=== PATIENT | male | born 1955 | race Two or more races ===

== ENCOUNTER 2020-08-21 09:37 | Outpatient (REF) | payer MEDICARE, MEDICAID, SELFPAY | END 2020-08-21 09:38 | disposition home or self-care (01) | LOC: HO.HAP 09:37 | PROVIDERS: Visit Provider Physician Assistant | DX: Z46.1 Encounter for fitting and adjustment of hearing aid (principal) | CPT/HCPCS: 92593; V5266 ==

== ENCOUNTER → 2021-01-09 07:34 | Outpatient (BNVA) | payer MEDICARE, MEDICAID, SELFPAY | PROVIDERS: PCP Internal Medicine; Visit Provider Nurse Practitioner Gerontology | DX: E11.29 Type 2 diabetes mellitus with other diabetic kidney complication (principal); E66.09 Other obesity due to excess calories; E78.5 Hyperlipidemia, unspecified; R80.9 Proteinuria, unspecified; I10 Essential (primary) hypertension; Z71.3 Dietary counseling and surveillance | CPT/HCPCS: Q3014 ==

== ENCOUNTER 2021-03-08 06:44 | Outpatient (REF) | payer MEDICARE, MEDICAID, SELFPAY ==
[2021-03-08 08:15] LABS: Estimated Average Glucose 148 mg/dL; Hemoglobin A1c % 6.8 %
[2021-03-08 08:22] LABS: Alanine Aminotransferase 18 U/L (0-40); Albumin Level 4.2 g/dL (3.5-5.0); Alkaline Phosphatase 82 U/L (39-117); Anion Gap 11 (12-20); Aspartate Amino Transferase 16 U/L (5-37); Bilirubin Total 0.2 mg/dL (0.0-1.0); Blood Urea Nitrogen 20 mg/dL (9-16); Calcium 9.3 mg/dL (8.4-10.2); Carbon Dioxide 28 mmol/L (22-29); Chloride 107 mmol/L (96-108); Cholesterol 126 mg/dL; Estimated Glomerular Filt Rate > 60; Glucose Fasting 102 mg/dL (60-99); HDL Cholesterol 50 mg/dL; LDL Cholesterol Calculated 66 mg/dl; Potassium 4.3 mmol/L (3.3-5.1); Sodium 142 mmol/L (135-145); Total Protein 7.2 g/dL (6.5-8.0); Triglycerides 52 mg/dL
[2021-03-08 09:54] LABS: Creatinine Urine 176.17 mg/dL; Microalbum/Creatinine Ratio Ur 28.3 ug/mg cr
[2021-03-09 05:32] LABS: LDL Cholesterol Direct 60 mg/dL (<100)
[2021-03-13 06:17] LABS: Fructosamine 286 umol/L (205-285)
== END 2021-03-08 06:45 | disposition home or self-care (01) ==
LOC: HO.US 06:44
PROVIDERS: Nurse Practitioner Gerontology; PCP Internal Medicine; Visit Provider Internal Medicine
DX: Z13.6 Encounter for screening for cardiovascular disorders (principal); Z87.891 Personal history of nicotine dependence; E11.29 Type 2 diabetes mellitus with other diabetic kidney complication; E11.22 Type 2 diabetes mellitus with diabetic chronic kidney disease; N18.9 Chronic kidney disease, unspecified
CPT/HCPCS: 36415; 80053; 80061; 82043; 82985; 83036; 83721

== ENCOUNTER → 2021-04-12 07:51 | Outpatient (BNVA) | payer MEDICARE, MEDICAID, SELFPAY | PROVIDERS: PCP Internal Medicine; Visit Provider Nurse Practitioner Gerontology | DX: E11.29 Type 2 diabetes mellitus with other diabetic kidney complication (principal); E11.42 Type 2 diabetes mellitus with diabetic polyneuropathy; E78.00 Pure hypercholesterolemia, unspecified; E66.01 Morbid (severe) obesity due to excess calories; I10 Essential (primary) hypertension; R80.9 Proteinuria, unspecified; Z79.4 Long term (current) use of insulin; Z68.41 Body mass index [BMI] 40.0-44.9, adult | CPT/HCPCS: 82947; 99212 ==

== ENCOUNTER → 2021-05-01 09:38 | Outpatient (BNVA) | payer MEDICARE, MEDICAID, SELFPAY | PROVIDERS: PCP Internal Medicine; Visit Provider Nurse Practitioner Gerontology | DX: E11.29 Type 2 diabetes mellitus with other diabetic kidney complication (principal); E11.42 Type 2 diabetes mellitus with diabetic polyneuropathy; E78.00 Pure hypercholesterolemia, unspecified; E66.01 Morbid (severe) obesity due to excess calories; R80.9 Proteinuria, unspecified; I10 Essential (primary) hypertension; Z68.41 Body mass index [BMI] 40.0-44.9, adult; Z79.4 Long term (current) use of insulin | CPT/HCPCS: 82947; 99212 ==

== ENCOUNTER 2021-06-06 15:27 | Outpatient (REF) | payer MEDICARE, MEDICAID, SELFPAY | END 2021-06-06 15:28 | disposition home or self-care (01) | LOC: HO.HAP 15:27 | PROVIDERS: Visit Provider Internal Medicine | DX: Z13.89 Encounter for screening for other disorder (principal) ==

== ENCOUNTER 2021-06-28 13:49 | Outpatient (REF) | payer MEDICARE, MEDICAID, SELFPAY | END 2021-06-28 13:50 | disposition home or self-care (01) | LOC: HO.HAP 13:49 | PROVIDERS: Visit Provider Internal Medicine | DX: Z46.1 Encounter for fitting and adjustment of hearing aid (principal); H90.3 Sensorineural hearing loss, bilateral | CPT/HCPCS: V5266 ==

== ENCOUNTER 2021-07-16 08:30 | Outpatient (REF) | payer MEDICARE, MEDICAID, SELFPAY ==
--- NOTE | ~2021-07-16 | US_ITS ---
EXAMINATION: US RETROPERITONEAL LIMITED (AORTA) CLINICAL INFORMATION: This is a 66-year-old male with a personal history of nicotine dependence. Evaluate for abdominal aortic aneurysm.. COMPARISON: None TECHNIQUE: Haley-scale, color Doppler and spectral Doppler evaluation of the abdominal aorta. FINDINGS: There is minimal scattered nonobstructive atherosclerotic disease without evidence of abdominal aortic aneurysm. The measurements of the aorta in maximum AP and transverse dimensions respectively are as follows: Proximal: 2.2 x 2.4 cm. Mid: 2.5 x 2.5 cm. Distal: 2.5 x 2.5 cm. PSV: 85 cm/s. The measurements of the common iliac arteries in maximum AP and TRV dimensions are as follows: Right Common Iliac Artery: 1.0 x 1.2 cm. Left Common Iliac Artery: 1.3 x 1.3 cm. US/US abdominal aortic aneurysm IMPRESSION: There is minimal scattered nonobstructive atherosclerotic disease without evidence of abdominal aortic aneurysm.
== END 2021-07-16 08:31 | disposition home or self-care (01) ==
LOC: HO.US 08:30
PROVIDERS: PCP Internal Medicine; Visit Provider Internal Medicine
DX: Z13.6 Encounter for screening for cardiovascular disorders (principal); Z87.891 Personal history of nicotine dependence
CPT/HCPCS: 76706

== ENCOUNTER → 2021-08-02 09:03 | Outpatient (BNVA) | payer MEDICARE, MEDICAID, SELFPAY | PROVIDERS: PCP Internal Medicine; Visit Provider Nurse Practitioner Gerontology | DX: E11.29 Type 2 diabetes mellitus with other diabetic kidney complication (principal); E11.42 Type 2 diabetes mellitus with diabetic polyneuropathy; E78.00 Pure hypercholesterolemia, unspecified; E66.01 Morbid (severe) obesity due to excess calories; I10 Essential (primary) hypertension; R80.9 Proteinuria, unspecified; Z79.4 Long term (current) use of insulin; Z68.41 Body mass index [BMI] 40.0-44.9, adult | CPT/HCPCS: 82947; 99212 ==

== ENCOUNTER 2021-10-20 14:26 | Emergency (ER) | payer MEDICARE, MEDICAID, SELFPAY | END 2021-10-20 20:31 | disposition left against medical advice (07) | LOC: HO.ED 20:27 | PROVIDERS: Emergency Provider Emergency Medicine; PCP Internal Medicine | DX: M25.472 Effusion, left ankle (principal) ==

== ENCOUNTER → 2021-11-27 07:43 | Outpatient (BNVA) | payer MEDICARE, MEDICAID, SELFPAY | PROVIDERS: PCP Internal Medicine; Visit Provider Nurse Practitioner Gerontology | DX: E11.29 Type 2 diabetes mellitus with other diabetic kidney complication (principal); E11.42 Type 2 diabetes mellitus with diabetic polyneuropathy; E78.00 Pure hypercholesterolemia, unspecified; E66.01 Morbid (severe) obesity due to excess calories; I10 Essential (primary) hypertension; R80.9 Proteinuria, unspecified; Z79.4 Long term (current) use of insulin; Z68.41 Body mass index [BMI] 40.0-44.9, adult | CPT/HCPCS: 82947; 83036; 99212 ==

== ENCOUNTER 2021-12-02 07:50 | Outpatient (REF) | payer MEDICARE, MEDICAID, SELFPAY | END 2021-12-02 07:51 | disposition home or self-care (01) | LOC: HO.LAB 07:50 | PROVIDERS: PCP Internal Medicine; Visit Provider Nurse Practitioner Gerontology | DX: Z13.89 Encounter for screening for other disorder (principal) ==

== ENCOUNTER 2021-12-02 08:13 | Outpatient (REF) | payer MEDICARE, MEDICAID, SELFPAY ==
[2021-12-02 10:47] LABS: Alanine Aminotransferase 22 U/L (0-40); Albumin Level 3.9 g/dL (3.5-5.0); Alkaline Phosphatase 106 U/L (39-117); Anion Gap 13 (12-20); Aspartate Amino Transferase 24 U/L (5-37); Bilirubin Total 0.6 mg/dL (0.0-1.0); Blood Urea Nitrogen 17 mg/dL (9-16); Calcium 9.4 mg/dL (8.4-10.2); Carbon Dioxide 29 mmol/L (22-29); Chloride 102 mmol/L (96-108); Cholesterol 127 mg/dL; Estimated Glomerular Filt Rate > 60; Glucose Fasting 234 mg/dL (60-99); HDL Cholesterol 44 mg/dL; LDL Cholesterol Calculated 58 mg/dl; Potassium 4.3 mmol/L (3.3-5.1); Sodium 140 mmol/L (135-145); Total Protein 7.2 g/dL (6.5-8.0); Triglycerides 126 mg/dL
[2021-12-02 11:17] LABS: Creatinine Urine 110.78 mg/dL; Microalbum/Creatinine Ratio Ur 112.8 ug/mg cr
[2021-12-03 17:53] LABS: LDL Cholesterol Direct 63 mg/dL (<100)
== END 2021-12-02 08:14 | disposition home or self-care (01) ==
LOC: HO.10HDL 08:13
PROVIDERS: Visit Provider Nurse Practitioner Gerontology
DX: E11.29 Type 2 diabetes mellitus with other diabetic kidney complication (principal)
CPT/HCPCS: 36415; 80053; 80061; 82043; 83721

== ENCOUNTER 2021-12-11 08:12 | Outpatient (REF) | payer MEDICARE, MEDICAID, SELFPAY ==
--- NOTE | 2021-12-11 09:38 | MHC.AU.HFU ---
Hearing Instrument Follow-Up- Binaural Date of Visit: 12/11/21 Right Ear: Ergonomics Consultant: Oticon Model: Em Pro BTE Serial Number: [id number] Repair Warranty: Loss and Damage Warranty: Battery Size: 13 Dispensed By: [facility] Left Ear: Ergonomics Consultant: Oticon Model: Em Pro BTE Serial Number: [id number] Repair Warranty: Loss and Damage Warranty: Battery Size: 13 Type of Mold: Standard half shell mold Dispensed By: [facility] Follow-Up Summary: Patient arrived as a walk-in, reporting that he is not sure if his right ear is blocked with wax or if his right hearing aid is not working. Otoscopy performed- There is deeply occluding wax in the right canal, as well as blood noted throughout canal. Advised patient to follow-up with his PCP to address the bleeding, as he is diabetic, and to have the remaining cerumen removed. Right hearing aid was inspected. Most of the paint has chipped off the hearing aid. Tubing was partially clogged with wax. Mold cleaned and tubing replaced. Microphones cleaned. Excessive debris removed from battery compartment. Hearing aid is working after maintenance. Recommendations: Follow-up with PCP to address bleeding in right ear and deeply impacted cerumen. Advised patient that he is eligible for new hearing aids. He will need an order for an updated audiological evaluation prior to discussing new hearing instruments. Dispensed 42 batteries. Diagnosis Code(s): Primary Diagnosis: H90.3 Bilateral Sensorineural Hearing Loss Signature: Provider: Joanna Rivera, CCC-A
== END 2021-12-11 08:13 | disposition home or self-care (01) ==
LOC: HO.HAP 08:12
PROVIDERS: Visit Provider Internal Medicine
DX: Z46.1 Encounter for fitting and adjustment of hearing aid (principal); H90.3 Sensorineural hearing loss, bilateral
CPT/HCPCS: 92592; V5266

== ENCOUNTER 2022-01-09 08:29 | Outpatient (REF) | payer MEDICARE, MEDICAID, SELFPAY ==
--- NOTE | 2022-01-09 13:42 | MHC.AU.AHA ---
Adult Audiological Evaluation Date of Visit: 01/09/22 Nutritional Services Cook Used: Montenegrin- By Phone Reason for Appointment: Audiological evaluation to determine if there has been a change in hearing sensitivity. Mr. Hess has a known bilateral sensorineural hearing loss and uses hearing aids binaurally. His current hearing aids are 8 years old and are no longer working well. He is interested in pursuing new hearing aids. He denies any changes to his medical history. Previous Hearing Test Results: [facility] of [facility], 04/19/2014- Moderate to severe SNHL in the right ear. Mild to moderately-severe SNHL in the left ear. Ear History: History of Ear Wax Buildup: Both Ears Bothersome Tinnitus/Ringing/Noises in Ears: Both Ears Medical History: Medical History: Diabetes Medical History: Former smoker, Proteinuria, Pure hypercholesterolemia Allergies: Enalapril, lisinopril, anethestics - amide type Medication List: amlodipine, atorvastatin, dulaglutide (Trulicity), insulin glargine (Lantus U-100 Insulin), losartan-hydrochlorothiazide, metformin ER, paroxetine HCl (Paxil) Hearing Instrument History- Right Ear: Mail Processing Clerk: Oticon Model: Em Pro BTE Serial Number: [id number] Battery Size: 13 Repair Warranty: Loss and Damage Warranty: Dispensed By: [facility] Date of Fittin Hearing Instrument History- Left Ear: Mail Processing Clerk: Oticon Model: Me Pro BTE Serial Number: [id number] Battery Size: 13 Warranty: Loss and Damage Warranty: Dispensed By: [facility] Date of Fittin Otoscopy: Right Ear: Deep, occluding cerumen removed without incident with suction. Left Ear: Unremarkable Hearing Evaluation: Transducer(s) Used: Insert Earphones, Bone Conduction Method: Conventional Audiometry Stimuli Used: Pure Tones Right Ear: Description of Hearing: Moderate sloping to severe sensorineural hearing loss from 250-8000 Hz. Left Ear: Description of Hearing: Moderate sloping to severe sensorineural hearing loss from 250-8000 Hz. Speech Recognition Threshold (SRT): Method Used: Recorded Lists Stimuli Used: Montenegrin Trisyllable Words Right Ear: 60 dBHL Left Ear: 50 dBHL Word Discrimination: Method: Recorded Lists Word Lists Used: Lista Bisil?bica (Montenegrin) Right Ear: 96% at 85 dBHL Left Ear: 100% at 80 dBHL Comparison: Compared to the most recent evaluation: Hearing is stable. Recommendations: Audiological re-evaluation in one year. Based on the age and condition of his current hearing aids, updated binaural amplification is recommended. Discussed current hearing aid styles and technologies. He is interested in pursuing rechargeable [id number]-cj-spk-ear style hearing aids. Medical clearance from a physician is required before fitting. Hearing aids will be ordered once medical clearance is received. Diagnosis: Primary Diagnosis: H90.3 Bilateral Sensorineural Hearing Loss Secondary Diagnosis: H61.21 Impacted Cerumen, Right Ear Services Performed: Comprehensive Audiological Evaluation (CPT 34857) Signature: Provider: Joanna Pang, CCC-A
--- NOTE | 2022-01-09 13:50 | MHC.AU.HAS ---
Hearing Aid Evaluation Date of Visit: 01/09/22 Solar System Installer Used: Uzbek- By Phone Historical Information: Description of Hearing: Moderate to severe sensorineural hearing loss bilaterally. Current personal amplification information, if applicable: 2013 Oticon Em Pro BTEs Summary: Based on Mr. Hess's hearing loss, his shared listening needs, and the age and condition of his current hearing aids, updated binaural amplification is recommended. Discussed current hearing aid styles and technologies. He is interested in rechargeable GIRISH style hearing aids. Going to remain with Oticon as he has been happy with his current hearing aids. Hearing Aid Prescription: Based on the individual?s shared listening needs, communication environments, dexterity, desire for connectivity, and personal preferences, the following prescription for amplification has been made: Right ear: Daylight Driller: Oticon Model: More 2 miniRITE-R Battery Size: Rechargeable Color: Silver - 44 Integration Manager: Size 2 85 gain Type of Mold: Custom GIRISH molds Left ear: Left ear prescription to be same as Right Hearing Aid above: Daylight Driller: Oticon Model: More 2 miniRITE-R Battery Size: Rechargeable Color: Silver - 44 Integration Manager: Size 2 85 gain Type of Mold: Custom GIRISH molds Plan of Care: Earmold Impressions Taken. Medical Clearance to be requested from PCP/ENT. Hearing aids will be ordered once MD clearance is received. Hearing Instrument Fitting to be scheduled when materials arrive. Primary Diagnosis: H90.3 Bilateral Sensorineural Hearing Loss Secondary Diagnosis: H61.21 Impacted Cerumen, Right Ear Signature: Provider: Joanna Pang, CCC-A
--- NOTE | 2022-01-13 13:51 | MHC.AU.MED ---
Medical Clearance for Hearing Instrumentation Date: 01/13/22 Patient Name: Nathen Hess Date of : 1955 Referring Provider: Radha Thakur MD We have seen your patient on 01/09/22 and have determined that they are a candidate for amplification (See accompanying report). Specifically, they would benefit from: Hearing aid use in both ears There is a statute that addresses Medical Evaluation Requirements prior to fitting a patient with a hearing aid. According to [place] statute 265 CMR:6.03(1), (a) General. Except as provided in 265 CMR 6.03(1)(b), a shearing supervisor shall not sell a hearing aid unless the prospective user has presented to the shearing supervisor a written statement signed by a licensed physician that states that the patient's hearing loss has been medically evaluated and the patient may be considered a candidate for a hearing aid. The medical evaluation must have taken place within the preceding six months. Please note: Due to the [place] Statute referenced above, we cannot accept a signature other than that of a licensed physician. RUBBER CHEMIST and PA signatures cannot be accepted. I am in agreement with the above recommendation. There is no medical contraindication for hearing instrumentation. Physician Signature Date Physician Name (Printed)
== END 2022-01-09 08:30 | disposition home or self-care (01) ==
LOC: HO.SH 08:29
PROVIDERS: Visit Provider Internal Medicine
DX: Z46.1 Encounter for fitting and adjustment of hearing aid (principal); Z01.118 Encounter for examination of ears and hearing with other abnormal findings; H61.21 Impacted cerumen, right ear
CPT/HCPCS: 92557; 92591; 92593; V5275

== ENCOUNTER 2022-02-24 09:15 | Outpatient (REF) | payer MEDICARE, MEDICAID, SELFPAY | END 2022-02-24 09:16 | disposition home or self-care (01) | LOC: HO.HAP 09:15 | PROVIDERS: Visit Provider Internal Medicine | DX: Z46.1 Encounter for fitting and adjustment of hearing aid (principal); H90.3 Sensorineural hearing loss, bilateral; H61.21 Impacted cerumen, right ear | CPT/HCPCS: V5011; V5020; V5160; V5261; V5264 ==

== ENCOUNTER 2023-04-23 07:39 | Outpatient (REF) | payer MEDICARE, MEDICAID, SELFPAY ==
--- NOTE | ~2023-04-23 | MR_ITS ---
EXAMINATION: MR BRAIN WITHOUT CONTRAST CLINICAL INFORMATION: Disorientation COMPARISON: None TECHNIQUE: Multiplanar multisequence MR imaging of the brain was obtained without intravenous contrast. FINDINGS: There is no acute infarct on diffusion-weighted imaging. There is no intracranial hemorrhage on iron-sensitive imaging. No extra-axial collection or mass effect/herniation. Scattered periventricular and deep white matter and patchy brainstem T2 FLAIR hyperintensities consistent with mild underlying microangiopathy. No hydrocephalus. The ventricles are normal in morphology and size. The major flow voids at the skull base are preserved. The midline structures are normal. The cerebellar tonsils are normally positioned. The craniocervical junction is normal. Marrow signal is within normal limits. The visualized soft tissues are without significant abnormality. No signal abnormality within the paranasal sinuses or within the mastoid air cells. MR/MR head/brain wo con IMPRESSION: Mild chronic white matter microangiopathy. Otherwise unremarkable noncontrast MRI of the brain.
== END 2023-04-23 07:40 | disposition home or self-care (01) ==
LOC: HO.MRI 07:39
PROVIDERS: PCP Internal Medicine; Visit Provider Internal Medicine
DX: R41.0 Disorientation, unspecified (principal)
CPT/HCPCS: 70551

== ENCOUNTER 2023-07-13 08:25 | Outpatient (AMB) | payer MEDICARE, MEDICAID, SELFPAY ==
[2023-07-13 08:45] VITALS: BP 136/70; BMI 39.7
--- NOTE | 2023-07-13 08:45 | A.OFFPC_ITS ---
Vital Signs 07/13/23 08:45 Height 5 ft 3 in Weight 224 lb BMI 39.7 BP 136/70 Blood Pressure Location Lt brachial Position Sitting Intake Visit Reasons: dm Intake Note: Patient here for a follow up DM, memory loss External Relations Manager Required: No Accompanied by: Self / Same As Patient Allergies enalapril [ENALAPRIL] Allergy (Unknown, Verified 07/13/23 08:57) UNKNOWN lisinopril Allergy (Unknown, Verified 07/13/23 08:57) UNKNOWN Anesthetics - Amide Type - Select A Adverse Reaction (Severe, Verified 07/13/23 08:57) loss of consciousness Medication List - Last Reconciled 07/13/23 by Radha Thakur MD amlodipine 10 mg PO DAILY atorvastatin 40 mg PO DAILY blood sugar diagnostic (FreeStyle Lite Strips) As directed three times a day blood-glucose meter (FreeStyle Lite Meter kit) As directed 3x/day [Diabetic shoes As directed] insulin glargine (Lantus U-100 Insulin) 8 units (0.08 mL) subcut DAILY 90 days insulin syringe-needle U-100 (BD Insulin Syringe Ultra-Fine) Use 1 syringe needle once a day lancets As directed lancets (FreeStyle Lancets) Three times a day losartan-hydrochlorothiazide 100-12.5 mg 1 tab PO DAILY 90 days metformin ER 1,000 mg (2 x 500 mg) PO BID paroxetine HCl (Paxil) 30 mg PO DAILY 90 days Tobacco use date assessed: 03/05/23 Fall risk assessment: No Falls in past year Last assessed Fall Risk: 07/13/23 Dental Screening Dental Screen Date: 07/13/23 Did you have a dental visit in the last 12 months?: No Did you have a dental problem in the last 6 months where you did not have access to dental care?: No Was dental information given to patient?: Patient has dentist HPI HPI Comments History of Present Illness Details This is a 68-year-old male with diabetes mellitus type 2 on long-term current use of insulin, hypertension, hyperlipidemia, mild recurrent major depression and dementia that came today for follow-up on his conditions. He admits having some memory loss but he said it got better on its own. A1c elevated because is not taking metformin twice a day. Blood pressure stable although he does not seem to be taking his medications correctly. Paroxetine will be resend for depression. He is awake, alert and oriented to person and place but not to time. Will be referred to neurology. No chest pain or shor tness of breath. Has dyslipidemia and lipid panel will be order. His LDL goal should be less than 70. [facility] Medical History (Updated 07/13/23 @ 09:04 by Radha Thakur MD) Hearing loss Encounter for Medicare annual wellness exam Mild recurrent major depression Morbid obesity with BMI of 40.0-44.9, adult Type 2 diabetes mellitus with diabetic polyneuropathy Former smoker Lumbar radiculopathy Proteinuria Retinopathy Hyperlipidemia Obesity due to excess calories Depression with anxiety Pure hypercholesterolemia Type 2 diabetes mellitus with other diabetic kidney complication Surgical History History of surgery History of cataract surgery Family History Father No problems noted. Mother No problems noted. Social History Household Members: None Housing: Apartment Alcohol intake: former Patient Tobacco Use Status: Former Tobacco user Years Smoked: 20 years e-Cigarette/Vaping Use: Never Used Second Hand Smoke Exposure: No service: No Current occupational status: disabled Cognitive needs: No Hearing needs: Yes Vision needs: Yes Questionnaire Thrive Questionnaire Date Thrive assessed: 03/05/23 ROBERT-7 AMB Questionnaire ROBERT-7 Date ROBERT - 7 assessed: 03/05/23 Source: Developed by Drs. Skinny Wallace, Columba Garcia, Elvis Canales and colleagues, with an educational evaristo from [employer] by [employer]. Review of Systems Const All systems reviewed & are unremarkable except as noted in HPI and below Eyes Reports no additional complaints, Denies change in vision and Denies other visual disturbances Card Denies chest pain at rest, Denies chest pain with activity, Denies edema, Denies irregular heart rhythm, Denies claudication, Denies dyspnea, Denies dyspnea on exertion, Denies orthopnea, Denies paroxysmal nocturnal dyspnea and Denies slow heart rate Resp Denies cough, Denies dyspnea and Denies dyspnea on exertion GI Denies abdominal pain, Denies change in bowel habits, Denies excessive flatus, Denies nausea and Denies vomiting Denies urinary hesitancy, Denies urinary incontinence and Denies urinary urgency Musc Denies abnormal gait, Denies atrophy, Denies deformity and Denies limited range of motion Skin/Breast Denies bleeding lesions, Denies changing lesions and Denies rash Neuro Denies abnormal gait, Denies lack of coordination and Reports memory loss Psych Reports memory loss Physical exam (Primary Care) Vital Signs: Last Vital Signs BP 136/70 07/13/23 08:45 BMI result Body Mass Index 39.7 Tobacco/Smoking Status: Tobacco use Status Tobacco use date assessed 03/05/23 07/13/23 08:48 Patient Tobacco Use Status Former Tobacco user 07/13/23 08:48 e-Cigarette/Vaping Use Never Used 07/13/23 08:48 Thrive Assessment: Date of Thrive Assessment Date Thrive assessed 03/05/23 07/13/23 08:48 Const Orientation/consciousness: oriented to person and oriented to place Eyes General: appearance normal, both eyes and all related structures Eyelids: Yes eyelids normal Conjunctivae: conjunctivae normal Neck Neck: Yes normal visual inspection and Yes supple Resp Effort & Inspection: normal respiratory effort Auscultation: clear to auscultation bilaterally Cardio Jugular venous distension: no JVD Rate: regular rate Rhythm: regular rhythm Heart sounds: S1 normal heart sound present and S2 normal heart sound present Neuro General: oriented to person and oriented to place Extrem General: Yes full ROM Results AMB Hemoglobin A1c AMB Hemoglobin A1c 8.0 % Last Edit by PÉREZ Torres on 07/13/23 09:0 1 Results Reviewed Results Reviewed: Laboratory Last Values Hgb A1c (Clinic) 8.0 % (4.0-6.0) H 07/13/23 08:52 Assessment and Plan Assessment & Plan (1) Diabetes mellitus, with long-term current use of insulin: Code(s): E11.9 - Type 2 diabetes mellitus without complications; Z79.4 - senior living (current) use of insulin Plan: Start metformin twice a day. Continue insulin. A1c goal is equal or less than 7%. (2) Mild recurrent major depression: Code(s): F33.0 - Major depressive disorder, recurrent, mild Plan: Restart paroxetine. (3) Dementia: Code(s): F03.90 - Unspecified dementia, unspecified severity, without behavioral disturbance, psychotic disturbance, mood disturbance, and anxiety Plan: Labs ordered. Referred to neurology. (4) HTN (hypertension): Code(s): I10 - Essential (primary) hypertension Qualifiers: Hypertension type: essential hypertension Qualified Code(s): I10 - Essential (primary) hypertension Plan: Continue amlodipine and losartan-hydrochlorothiazide. Blood pressure goal is equal or less than 130/80. (5) Hyperlipidemia: Code(s): E78.5 - Hyperlipidemia, unspecified Qualifiers: Hyperlipidemia type: pure hypercholesterolemia Qualified Code(s): E78.00 - Pure hypercholesterolemia, unspecified Plan: Continue statins. LDL goal should be less than 70 Orders: Orders Lipid Panel Today E78.5 - Hyperlipidemia, unspecified Vitamin D 25-OH Total Today E55.9 - Vitamin D deficiency, unspecified Comprehensive [place]. Panel Fast Today F03.90 - Unspecified dementia, unspecified severity, without behavioral disturbance, psychotic disturbance, mood disturbance, and anxiety Thyroid Stimulating Hormone Today F03.90 - Unspecified dementia, unspecified severity, without behavioral disturbance, psychotic disturbance, mood disturbance, and anxiety Complete Blood Count Auto Diff Today D64.9 - Anemia, unspecified, F03.90 - Unspecified dementia, unspecified severity, without behavioral disturbance, psychotic disturbance, mood disturbance, and anxiety AMB Hemoglobin A1c Today E11.9 - Type 2 diabetes mellitus without complications, Z79.4 - oncology radiation physician (current) use of insulin Microalbumin, Random (w Creat) Today E11.9 - Type 2 diabetes mellitus without complications Syphilis Screen Today F03.90 - Unspecified dementia, unspecified severity, without behavioral disturbance, psychotic disturbance, mood disturbance, and anxiety Referrals Neurology Referral F03.90 - Unspecified dementia, unspecified severity, without behavioral disturbance, psychotic disturbance, mood disturbance, and anxiety Medications: New metformin 1,000 mg PO BID 90 days 180 tabs 1RF Refilled insulin syringe-needle U-100 (BD Insulin Syringe Ultra-Fine) Use 1 syringe needle once a day 100 ea 11RF paroxetine HCl (Paxil) 30 mg PO DAILY 90 days 90 tabs 1RF F41.1 - Generalized anxiety disorder amlodipine 10 mg PO DAILY 90 tabs 1RF E11.42 - Type 2 diabetes mellitus with diabetic polyneuropathy, Z79.4 - oncology radiation physician (current) use of insulin atorvastatin 40 mg PO DAILY 90 caps 1RF E11.42 - Type 2 diabetes mellitus with diabetic polyneuropathy, Z79.4 - senior living (current) use of insulin insulin glargine (Lantus U-100 Insulin) 8 units (0.08 mL) subcut DAILY 90 days 7.2 mL 3RF E11.42 - Type 2 diabetes mellitus with diabetic polyneuropathy, Z79.4 - senior living (current) use of insulin losartan-hydrochlorothiazide 100-12.5 mg 1 tab PO DAILY 90 days 90 caps 1RF Discontinued metformin ER Discontinued Reason: Patient Completed Course 1,000 mg (2 x 500 mg) PO BID 120 tabs 6RF Coding Level of Care Code Est Pt Level 4 (70847) Diagnoses Diabetes mellitus, with long-term current use of insulin E11.9; Z79.4 Mild recurrent major depression F33.0 Dementia F03.90 Essential hypertension I10 Hypertension type: essential hypertension Pure hypercholesterolemia E78.00 Hyperlipidemia type: pure hypercholesterolemia Time Spent (min) 24
== END 2023-07-13 09:30 | disposition home or self-care (01) ==
PROVIDERS: PCP Internal Medicine; Visit Provider Internal Medicine
DX: E11.9 Type 2 diabetes mellitus without complications (principal); Z79.4 Long term (current) use of insulin; F33.0 Major depressive disorder, recurrent, mild; F03.90 Unspecified dementia, unspecified severity, without behavioral disturbance, psychotic disturbance, mood disturbance, and anxiety; I10 Essential (primary) hypertension; E78.00 Pure hypercholesterolemia, unspecified
CPT/HCPCS: 83036; 99214

== ENCOUNTER 2023-11-16 07:56 | Outpatient (AMB) | payer MEDICARE, MEDICAID, SELFPAY ==
--- NOTE | 2023-11-16 08:04 | A.OFFPC_ITS ---
Vital Signs 11/16/23 08:17 Height 5 ft 3 in Weight 223 lb BMI 39.5 BP 132/68 Blood Pressure Location Lt brachial Position Sitting Intake Visit Reasons: dm Intake Note: Patient here for a follow up DM Welding Inspector Required: No Accompanied by: Self / Same As Patient Allergies enalapril [ENALAPRIL] Allergy (Unknown, Verified 11/16/23 08:39) UNKNOWN lisinopril Allergy (Unknown, Verified 11/16/23 08:39) UNKNOWN Anesthetics - Amide Type - Select A Adverse Reaction (Severe, Verified 11/16/23 08:39) loss of consciousness Medication List - Last Reconciled 11/16/23 by Radha Thakur MD amlodipine 10 mg PO DAILY atorvastatin 40 mg PO DAILY blood sugar diagnostic (FreeStyle Lite Strips) As directed three times a day blood-glucose meter (FreeStyle Lite Meter kit) As directed 3x/day [Diabetic shoes As directed] insulin glargine (Lantus U-100 Insulin) 8 units (0.08 mL) subcut DAILY 90 days insulin syringe-needle U-100 (BD Insulin Syringe Ultra-Fine) Use 1 syringe needle once a day lancets (FreeStyle Lancets) Three times a day lancets As directed losartan-hydrochlorothiazide 100-12.5 mg 1 tab PO DAILY 90 days metformin 1,000 mg PO BID 90 days paroxetine HCl (Paxil) 30 mg PO DAILY 90 days Tobacco use date assessed: 11/16/23 Fall risk assessment: No Falls in past year Last assessed Fall Risk: 11/16/23 Dental Screening Dental Screen Date: 11/16/23 Did you have a dental visit in the last 12 months?: No Did you have a dental problem in the last 6 months where you did not have access to dental care?: No Was dental information given to patient?: Patient has dentist HPI HPI Comments History of Present Illness Details This is a 68-year-old male with diabetes mellitus type 2 on long-term current use of insulin, hypertension, hyperlipidemia, mild major depression and dementia that comes accompanied by son for follow-up on his conditions. A1c elevated and he has been out of his medications for over 3 weeks. Blood pressure stable. Lipid panel will be order and his LDL goal should be less than 70. Depression stable with paroxetine. Has dementia and is awake, alert and oriented to person and place but not to time. He is license [place] suspended due to dementia. I will start him on donepezil and refer him to Neurology. Son is aware of this. [facility] Medical History (Updated 11/16/23 @ 10:02 by Radha Thakur MD) Hearing loss Encounter for Medicare annual wellness exam Mild recurrent major depression Morbid obesity with BMI of 40.0-44.9, adult Type 2 diabetes mellitus with diabetic polyneuropathy Former smoker Lumbar radiculopathy Proteinuria Retinopathy Hyperlipidemia Obesity due to excess calories Depression with anxiety Pure hypercholesterolemia Type 2 diabetes mellitus with other diabetic kidney complication Surgical History History of surgery History of cataract surgery Family History Father No problems noted. Mother No problems noted. Social History Household Members: None Housing: Apartment Alcohol intake: former Patient Tobacco Use Status: Former Tobacco user Years Smoked: 20 years e-Cigarette/Vaping Use: Never Used Second Hand Smoke Exposure: No service: No Current occupational status: disabled Cognitive needs: No Hearing needs: Yes Vision needs: Yes Questionnaire PHQ-9 Over the last 2 weeks, how often have you been bothered by any of the following problems? 1. Little interest or pleasure in doing things: not at all 2. Feeling down, depressed, or hopeless: not at all 3. Trouble falling or staying asleep, or sleeping too much: not at all 4. Feeling tired or having little energy: not at all 5. Poor appetite or overeating: not at all 6. Feeling bad about yourself - or that you are a failure or have let yourself or your family down: not at all 7. Trouble concentrating on things, such as reading the newspaper or watching television: not at all 8. Moving or speaking so slowly that other people could have noticed. Or the opposite - being so fidgety or restless that you have been moving around a lot more than usual: not at all 9. Thoughts that you would be better off or of hurting yourself in some way: not at all Total score: 0 Depression Screening Interpretation: Negative Depression Screening Done: Yes [id number] - PHQ-9 Billing: Yes Source: Developed by Drs. Skinny Wallace, Columba Garcia, Elvis Canales and colleagues, with an educational evaristo from [employer]. Thrive Questionnaire Date Thrive assessed: 11/16/23 I am a: Patient What is your living situation today?: I have a steady place to live Within the past 12 months, did the food you bought not last and you didn't have the money to get more?: Never true Within the past 12 months, did you worry whether your food would run out before you got money to buy more?: Never true Do you have trouble paying for medicines?: No Do you have trouble getting transportation to medical appointments?: No Do you have trouble paying your heating and electricity bill?: No Do you have trouble taking care of your child, family member or friend?: No Do you have trouble with day-to-day activities such as bathing, preparing meals, shopping, managing finances, etc.?: No Are you currently unemployed and looking for a job?: No Are you interested in more education?: No Please select the resources that you would like help with: None AUDIT C Alcohol Use Questionnaire (AUDIT-C) 1. How often do you have a drink containing alcohol?: Never Total Score: 0 ROBERT-7 AMB Questionnaire ROBERT-7 Date ROBERT - 7 assessed: 11/16/23 Feeling nervous, anxious, or on edge: 0 = Not at all Not being able to stop or control worryin = Not at all Worrying too much about different things: 0 = Not at all Trouble relaxin = Not at all Being so restless that it is hard to sit still: 0 = Not at all Becoming easily annoyed or irritable: 0 = Not at all Feeling afraid as if something awful might happen: 0 = Not at all Total ROBERT-7 score (0-4 normal; 5-9 mild; 10-14 moderate; 15-21 severe): 0 Source: Developed by Drs. Skinny Wallace, Columba Garcia, Elvis Canales and colleagues, with an educational evaristo from [employer]. ROBERT-7 Assessment Billing ROBERT-7 Assessment Tool: ROBERT-7 Assessment 60525 Review of Systems Const All systems reviewed & are unremarkable except as noted in HPI and below Eyes Reports no additional complaints, Denies change in vision and Denies other visual disturbances Card Denies chest pain at rest, Denies chest pain with activity, Denies edema, Denies irregular heart rhythm, Denies claudication, Denies dyspnea, Denies dyspnea on exertion, Denies orthopnea, Denies paroxysmal nocturnal dyspnea and Denies slow heart rate Resp Denies cough, Denies dyspnea and Denies dyspnea on exertion GI Denies abdominal pain, Denies change in bowel habits, Denies excessive flatus, Denies nausea and Denies vomiting Denies urinary hesitancy, Denies urinary incontinence and Denies urinary urgency Musc Denies atrophy, Denies deformity and Denies limited range of motion Neuro Reports memory loss Psych Reports memory loss Physical exam (Primary Care) Vital Signs: Last Vital Signs BP 132/68 11/16/23 08:17 BMI result Body Mass Index 39.5 Tobacco/Smoking Status: Tobacco use Status Tobacco use date assessed 11/16/23 11/16/23 08:22 Patient Tobacco Use Status Former Tobacco user 11/16/23 08:05 e-Cigarette/Vaping Use Never Used 11/16/23 08:05 PHQ-9: PHQ-9 Score PHQ-9: Total score 0 11/16/23 08:56 Depression Screening Interpretation: Negative Thrive Assessment: Date of Thrive Assessment Date Thrive assessed 11/16/23 11/16/23 08:23 Const Orientation/consciousness: oriented to person and oriented to place Eyes General: appearance normal, both eyes and all related structures Eyelids: Yes eyelids normal Conjunctivae: conjunctivae normal Neck Neck: Yes normal visual inspection and Yes supple Resp Effort & Inspection: normal respiratory effort Auscultation: clear to auscultation bilaterally Cardio Jugular venous distension: no JVD Rate: regular rate Rhythm: regular rhythm Heart sounds: S1 normal heart sound present and S2 normal heart sound present Neuro General: oriented to person, oriented to place and no focal motor deficits Extrem General: Yes full ROM Psych Appearance: grossly normal Office Procedures Flu Questionnaire Does the patient have a severe egg allergy?: No Results AMB Hemoglobin A1c AMB Hemoglobin A1c 9.2 % Last Edit by PÉREZ Torres on 11/16/23 08:2 5 Immunizations flu vacc [id number] 6mos up(PF) 60 mcg(15 mcgx4)/0.5 mL IM syringe Performing Provider: Radha Thakur MD [facility] [place] [facility] Documented (not given) by: PÉREZ Torres on 11/16/23 08:56 Reason Not Given: Patient Refused Results Reviewed Results Reviewed: Laboratory Last Values Hgb A1c (Clinic) 9.2 % (4.0-6.0) H 11/16/23 08:24 Assessment and Plan Assessment & Plan (1) Mild recurrent major depression: Code(s): F33.0 - Major depressive disorder, recurrent, mild Plan: Continue paroxetine. (2) Dementia: Code(s): F03.90 - Unspecified dementia, unspecified severity, without behavioral disturbance, psychotic disturbance, mood disturbance, and anxiety Qualifiers: Dementia type: Alzheimer's Alzheimer's disease onset: early onset Dementia severity: mild Dementia behavioral or psychological symptom: without behavioral, psychotic, or mood disturbance or anxiety Qualified Code(s): G30.0 - Alzheimer's disease with early onset; F02.A0 - Dementia in other diseases classified elsewhere, mild, without behavioral disturbance, psychotic disturbance, mood disturbance, and anxiety Plan: Start donepezil. Referred to neurology. (3) Type 2 diabetes mellitus, with long-term current use of insulin: Code(s): E11.9 - Type 2 diabetes mellitus without complications; Z79.4 - detention (current) use of insulin Qualifiers: Diabetes mellitus complication status: with hyperglycemia Qualified Code(s): E11.65 - Type 2 diabetes mellitus with hyperglycemia; Z79.4 - parts counterman (current) use of insulin Plan: Restart insulin and metformin. Start Ozempic. A1c goal is equal or less than 7%. (4) HTN (hypertension): Code(s): I10 - Essential (primary) hypertension Qualifiers: Hypertension type: essential hypertension Qualified Code(s): I10 - E ssential (primary) hypertension Plan: Continue amlodipine. Blood pressure goal is equal or less than 130/80. (5) Hyperlipidemia: Code(s): E78.5 - Hyperlipidemia, unspecified Qualifiers: Hyperlipidemia type: pure hypercholesterolemia Qualified Code(s): E78.00 - Pure hypercholesterolemia, unspecified Plan: Continue statins. Repeat lipid panel. LDL goal is less than 70. Orders: Orders Lipid Panel Today E78.5 - Hyperlipidemia, unspecified Comprehensive [place]. Panel Fast Today E11.9 - Type 2 diabetes mellitus without complications, Z79.4 - detention (current) use of insulin Vitamin B12 and Folate Today E53.8 - Deficiency of other specified B group vitamins, R41.0 - Disorientation, unspecified Thyroid Stimulating Hormone Today R41.0 - Disorientation, unspecified Influenza [id number] Immunization Today Z23 - Encounter for immunization AMB Hemoglobin A1c Today E11.42 - Type 2 diabetes mellitus with diabetic polyneuropathy Microalbumin, Random (w Creat) Today E11.9 - Type 2 diabetes mellitus without complications RPR Monitor reflex titer Today R41.0 - Disorientation, unspecified Referrals Neurology Referral F03.90 - Unspecified dementia, unspecified severity, without behavioral disturbance, psychotic disturbance, mood disturbance, and anxiety Medications: New semaglutide (Ozempic) for 4 weeks 0.25 mg (0.368 mL) subcut QWEEK 28 days 1.472 mL 0RF E11.9 - Type 2 diabetes mellitus without complications, Z79.4 - parts counterman (current) use of insulin donepezil 10 mg PO BEDTIME 90 days 90 tabs 1RF F03.90 - Unspecified dementia, unspecified severity, without behavioral disturbance, psychotic disturbance, mood disturbance, and anxiety semaglutide (Ozempic) for 4 weeks 0.25 mg (0.368 mL) subcut QWEEK 28 days 1.472 mL 0RF E11.9 - Type 2 diabetes mellitus without complications, Z79.4 - parts counterman (current) use of insulin Refilled insulin glargine (Lantus U-100 Insulin) 8 units (0.08 mL) subcut DAILY 90 days 7.2 mL 3RF E11.42 - Type 2 diabetes mellitus with diabetic polyneuropathy, Z79.4 - parts counterman (current) use of insulin metformin 1,000 mg PO BID 90 days 180 tabs 1RF atorvastatin 40 mg PO DAILY 90 caps 1RF E11.42 - Type 2 diabetes mellitus with diabetic polyneuropathy, Z79.4 - parts counterman (current) use of insulin amlodipine 10 mg PO DAILY 90 tabs 1RF E11.42 - Type 2 diabetes mellitus with diabetic polyneuropathy, Z79.4 - parts counterman (current) use of insulin insulin syringe-needle U-100 (BD Insulin Syringe Ultra-Fine) Use 1 syringe needle once a day 100 ea 11RF losartan-hydrochlorothiazide 100-12.5 mg 1 tab PO DAILY 90 days 90 caps 1RF paroxetine HCl (Paxil) 30 mg PO DAILY 90 days 90 tabs 1RF F41.1 - Generalized anxiety disorder Coding Level of Care Code Est Pt Level 4 (10993) Diagnoses Mild recurrent major depression F33.0 Mild early onset Alzheimer's dementia without behavioral disturbance, psychotic disturbance, mood disturbance, or anxiety G30.0; F02.A0 Dementia type: Alzheimer's Alzheimer's disease onset: early onset Dementia severity: mild Dementia behavioral or psychological symptom: without behavioral, psychotic, or mood disturbance or anxiety Type 2 diabetes mellitus with hyperglycemia, with long-term current use of insulin E11.65; Z79.4 Diabetes mellitus complication status: with hyperglycemia Essential hypertension I10 Hypertension type: essential hypertension Pure hypercholesterolemia E78.00 Hyperlipidemia type: pure hypercholesterolemia Additional Codes ROBERT-7 Assessment Billing - ROBERT-7 Assessment Tool: ROBERT-7 Assessment [id number] ([id number]) Time Spent (min) 31
[2023-11-16 08:17] VITALS: BP 132/68; BMI 39.5
== END 2023-11-16 08:55 | disposition home or self-care (01) ==
PROVIDERS: PCP Internal Medicine; Visit Provider Internal Medicine
DX: F33.0 Major depressive disorder, recurrent, mild (principal); G30.0 Alzheimer's disease with early onset; E11.65 Type 2 diabetes mellitus with hyperglycemia; F02.A0 Dementia in other diseases classified elsewhere, mild, without behavioral disturbance, psychotic disturbance, mood disturbance, and anxiety; Z79.4 Long term (current) use of insulin; E11.42 Type 2 diabetes mellitus with diabetic polyneuropathy; I10 Essential (primary) hypertension; E78.00 Pure hypercholesterolemia, unspecified; Z23 Encounter for immunization
CPT/HCPCS: 83036; 99214

== ENCOUNTER 2024-02-29 08:22 | Outpatient (AMB) | payer MEDICARE, MEDICAID, SELFPAY ==
--- NOTE | 2024-02-29 08:28 | A.OFFVIS_ITS ---
Vital Signs 02/29/24 08:29 Height 5 ft 3 in Weight 213 lb BMI 37.7 BP 130/72 Blood Pressure Location Rt brachial Position Sitting Pulse 72 Pulse Source Pulse Oximeter Pulse Oximetry (%) 97 Oxygen Delivery Method Room Air Intake Visit Reasons: INP-Unspecified Dementia/ Confirmed w/ address Intake Note: Patient presents for dementia. Allergies enalapril [ENALAPRIL] Allergy (Unknown, Verified 03/17/24 08:24) UNKNOWN lisinopril Allergy (Unknown, Verified 03/17/24 08:24) UNKNOWN Anesthetics - Amide Type - Select A Adverse Reaction (Severe, Verified 03/17/24 08:24) loss of consciousness Medication List - Last Reconciled 02/29/24 by CARLITA Lopez amlodipine 10 mg PO DAILY atorvastatin 40 mg PO DAILY blood sugar diagnostic (FreeStyle Lite Strips) As directed three times a day blood-glucose meter (FreeStyle Lite Meter kit) As directed 3x/day [Diabetic shoes As directed] donepezil 10 mg PO BEDTIME 90 days insulin degludec (Tresiba FlexTouch U-100 insulin) 8 units (0.08 mL) subcut DAILY 30 days insulin syringe-needle U-100 (BD Insulin Syringe Ultra-Fine) Use 1 syringe needle once a day lancets (FreeStyle Lancets) Three times a day lancets As directed losartan-hydrochlorothiazide 100-12.5 mg 1 tab PO DAILY 90 days metformin 1,000 mg PO BID 90 days paroxetine HCl (Paxil) 30 mg PO DAILY 90 days pen needle, diabetic (Comfort EZ Pen Stover) Use 1 pen needle once a day semaglutide (Ozempic) 0.25 mg (0.368 mL) subcut QWEEK 28 days HPI Comments Details: Right-handed 69-yr-old male presents for neurological evaluation of cognitive difficulties. Pt's son reports that pt's family became aware that pt was having cognitive difficulties in Jul 2023. Pt had driven himself home (in [place]) from his son's home in [place], and had become lost- the police were called and pt's license was suspended. Since, family has noticed increased STM forgetfulness, repeating himself, misplacing items. Pt will not recall his son already did grocery shopping. He lives alone in senior housing apartment. Son now helps with finances and grocery shopping. Pt continues to cook, tends to eat dinner early in the day. He has left the stove on. He recently threw out many of his medications. Pt is doing his own laundry w/o issues- there is a communal laundry room. Pt reports normal gestational and early development. He completed 6th grade- stopped at 6th grade d/t this was the common age to stop schooling in his area of [place]. 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 He retired approx 4-5 yrs ago. He used to smoke 2 ppd, quit 22 yrs ago. He did drink heavy, maybe a gallon of vodka a day on the weekends, would often drink to the point of passing out, stopped drinking 24 yrs ago. He states he fell out of a 30 foot tree as a child (before 6th grade) and hit his head- he states that is when he started having memory issues. Pt is 2nd oldest of his siblings- 6 sisters and 7 brothers. Pt is the only one w/ memory issues. Other family memebers drank as well, but not as much as pt. 04/23/23, MR/MR head/brain wo con IMPRESSION: Mild chronic white matter microangiopathy. Otherwise unremarkable noncontrast MRI of the brain. [facility] Medical History (Updated 03/17/24 @ 08:51 by Kurt Thakur MD) Type 2 diabetes mellitus, with long-term current use of insulin Diabetes mellitus, with long-term current use of insulin Hearing loss Encounter for Medicare annual wellness exam Mild recurrent major depression Morbid obesity with BMI of 40.0-44.9, adult Type 2 diabetes mellitus with diabetic polyneuropathy Former smoker Lumbar radiculopathy Proteinuria Retinopathy Hyperlipidemia Obesity due to excess calories Depression with anxiety Pure hypercholesterolemia Type 2 diabetes mellitus with other diabetic kidney complication Surgical History History of surgery History of cataract surgery Family History Father No problems noted. Mother No problems noted. Social History Household Members: None Housing: Apartment Alcohol intake: former Patient Tobacco Use Status: Former Tobacco user Years Smoked: 20 years e-Cigarette/Vaping Use: Never Used Second Hand Smoke Exposure: No service: No Current occupational status: disabled Cognitive needs: No Hearing needs: Yes Vision needs: Yes Physical Exam Vital Signs: Last Vital Signs Pulse 72 02/29/24 08:29 BP 130/72 02/29/24 08:29 Pulse Ox 97 02/29/24 08:29 Oxygen Delivery Method Room Air 02/29/24 08:29 BMI result Body Mass Index 37.7 Const General: cooperative and no acute distress Orientation/consciousness: patient oriented x3 HEENT Head: Yes normocephalic Resp Effort & Inspection: normal respiratory effort and able to speak in complete sentences Neuro General: patient oriented x3, CN's II-XI intact bilaterally and deep tendon reflexes 2+ bilaterally Gait exam (Neuro): Normal gait present Motor exam (neuro): 5/5 motor strength present throughout Psych Appearance: grossly normal Mental Status: mental status grossly normal Speech and movement: Normal speech and movement present Affect: normal affect Attitude: cooperative Thought process: Normal thought process present Thought content: Normal thought content present Insight: Good insight present (Psych) Orientation What is the (year) (season) (date) (day) (month)?: month Where are we (state) (county) (town or city) (hospital) (floor)?: state, county, hospital/clinic and floor Registration Name of 3 unrelated objects clearly and slowly, then ask patient to repeat all 3 of them. (1st repeat determines score. Make sure they can repeat all three): object 1, object 2 and object 3 Language Show patient a wristwatch & ask what it is. Repeat for pencil.: watch and pencil Ask the patient to 'take a piece of paper with their right hand' 'fold paper in half' 'place paper on floor': take paper in right hand, fold paper in half and place paper on floor Print the sentence 'CLOSE YOUR EYES' on a piece. If patient actually closes eyes then score.: followed written direction Score Score: 14 Quality Reporting (2019) Adult ([facility] 138/12/24/68) Smoking risk assessment performed?: Yes Patient Tobacco Use Status: Former Tobacco user Assessment & Plan Assessment & Plan (1) Dementia: Code(s): F03.90 - Unspecified dementia, unspecified severity, without behavioral disturbance, psychotic disturbance, mood disturbance, and anxiety Category: Medical Qualifiers: Dementia type: Alzheimer's Alzheimer's disease onset: early onset Dementia severity: mild Dementia behavioral or psychological symptom: without behavioral, psychotic, or mood disturbance or anxiety Qualified Code(s): G30.0 - Alzheimer's disease with early onset; F02.A0 - Dementia in other diseases classified elsewhere, mild, without behavioral disturbance, psychotic disturbance, mood disturbance, and anxiety (2) Cognitive impairment: Code(s): R41.89 - Other symptoms and signs involving cognitive functions and awareness Category: Medical (3) ZACH (obstructive sleep apnea): Code(s): G47.33 - Obstructive sleep apnea (adult) (pediatric) Category: Medical Plan Reviewed brain MRI w/o, April 2023, Mild chronic white matter microangiopathy- no findings to account for pt's extent of cognitive impairment. Discussed importance of optimizing CV risk factors, including blood sugar control. Pt/son will f/u w/ PCP r/t diabetes tx. We will f/u on sleep apnea tx. Pt will need increased supervision and support. Information shared on local eldercare services. Check labs for common etiologies of cognitive impairment. Check baseline EEG to assess for epileptic or cerebral slowing. Continue Donepazil 10mg qd. Consider adjuncting w/ Memantine upon review of above. Patient seen in collaboration with Dr. Farah. Orders: Orders Rheumatoid Factor 03/02/24 G30.0 - Alzheimer's disease with early onset, F02.A0 - Dementia in other diseases classified elsewhere, mild, without behavioral disturbance, psychotic disturbance, mood disturbance, and anxiety, E11.65 - Type 2 diabetes mellitus with hyperglycemia, Z79.4 - senior living (current) use of insulin, I10 - Essential (primary) hypertension, E78.00 - Pure hypercholesterolemia, unspecified Erythrocyte Sedimentation Rate 03/02/24 G30.0 - Alzheimer's disease with early onset, F02.A0 - Dementia in other diseases classified elsewhere, mild, without behavioral disturbance, psychotic disturbance, mood disturbance, and anxiety, E11.65 - Type 2 diabetes mellitus with hyperglycemia, Z79.4 - outreach consultant ( current) use of insulin, I10 - Essential (primary) hypertension, E78.00 - Pure hypercholesterolemia, unspecified EEG electroencephalogram 02/29/24 R41.89 - Other symptoms and signs involving cognitive functions and awareness KURT Reflex Titer and Pattern 03/02/24 G30.0 - Alzheimer's disease with early onset, F02.A0 - Dementia in other diseases classified elsewhere, mild, without behavioral disturbance, psychotic disturbance, mood disturbance, and anxiety, E11.65 - Type 2 diabetes mellitus with hyperglycemia, Z79.4 - outreach consultant (current) use of insulin, I10 - Essential (primary) hypertension, E78.00 - Pure hypercholesterolemia, unspecified CRP High Sensitivity 03/02/24 G30.0 - Alzheimer's disease with early onset, F02.A0 - Dementia in other diseases classified elsewhere, mild, without behavioral disturbance, psychotic disturbance, mood disturbance, and anxiety, E11.65 - Type 2 diabetes mellitus with hyperglycemia, Z79.4 - senior living (current) use of insulin, I10 - Essential (primary) hypertension, E78.00 - Pure hypercholesterolemia, unspecified HIV Ab/Ag 03/02/24 G30.0 - Alzheimer's disease with early onset, F02.A0 - Dementia in other diseases classified elsewhere, mild, without behavioral disturbance, psychotic disturbance, mood disturbance, and anxiety, E11.65 - Type 2 diabetes mellitus with hyperglycemia, Z79.4 - senior living (current) use of insulin, I10 - Essential (primary) hypertension, E78.00 - Pure hypercholesterolemia, unspecified Coding Level of Care Code New Pt Level 4 (67344) Diagnoses Mild early onset Alzheimer's dementia without behavioral disturbance, psychotic disturbance, mood disturbance, or anxiety G30.0; F02.A0 Dementia type: Alzheimer's Alzheimer's disease onset: early onset Dementia severity: mild Dementia behavioral or psychological symptom: without behavioral, psychotic, or mood disturbance or anxiety Cognitive impairment R41.89 ZACH (obstructive sleep apnea) G47.33
[2024-02-29 08:29] VITALS: BP 130/72; PULSE 72; O2SAT 97; BMI 37.7
== END 2024-02-29 09:59 | disposition home or self-care (01) ==
PROVIDERS: PCP Internal Medicine; Visit Provider Nurse Practitioner Family
DX: G30.0 Alzheimer's disease with early onset (principal); F02.A0 Dementia in other diseases classified elsewhere, mild, without behavioral disturbance, psychotic disturbance, mood disturbance, and anxiety; R41.89 Other symptoms and signs involving cognitive functions and awareness; G47.33 Obstructive sleep apnea (adult) (pediatric)
CPT/HCPCS: 99204; 99214

== ENCOUNTER → 2024-02-29 08:22 | Outpatient (BNVA) | payer MEDICARE, MEDICAID, SELFPAY | PROVIDERS: PCP Internal Medicine; Visit Provider Nurse Practitioner Family | DX: G47.33 Obstructive sleep apnea (adult) (pediatric) (principal); G30.0 Alzheimer's disease with early onset; R41.89 Other symptoms and signs involving cognitive functions and awareness; E11.65 Type 2 diabetes mellitus with hyperglycemia; F02.A0 Dementia in other diseases classified elsewhere, mild, without behavioral disturbance, psychotic disturbance, mood disturbance, and anxiety; I10 Essential (primary) hypertension; E78.00 Pure hypercholesterolemia, unspecified; Z79.4 Long term (current) use of insulin | CPT/HCPCS: 99202 ==

== ENCOUNTER 2024-03-02 06:53 | Outpatient (REF) | payer MEDICARE, MEDICAID, SELFPAY ==
[2024-03-02 07:12] LABS: MANUAL DIFF FLAG NO
[2024-03-02 07:21] LABS: Ammonia 32 umol/L (13-55)
[2024-03-02 07:32] LABS: Basophils Absolute Auto 0.1 X10*3/uL (0.0-0.2); Basophils Percent Auto 0.8 % (0-2); Eosinophils Absolute Auto 0.1 X10*3/uL (0.0-0.4); Eosinophils Percent Auto 1.9 % (0-4); Hematocrit 48.1 % (42.0-52.0); Hemoglobin 16.1 g/dl (14.0-18.0); Imm Gran Abs Auto 0.02 X10*3/uL (0.00-0.03); Imm Gran Pct Auto 0.3 % (0.0-0.4); Lymphocytes Absolute Auto 2.1 X10*3/uL (1.2-4.9); Lymphocytes Percent Auto 32.2 % (20-40); Mean Corpuscular HGB Conc 33.5 g/dl (31.0-36.0); Mean Corpuscular Hemoglobin 30.6 pg (27.0-33.0); Mean Corpuscular Volume 91.4 fL (80.0-98.0); Mean Platelet Volume 11.2 fL (9.4-12.4); Monocytes Absolute Auto 0.8 X10*3/uL (0.1-1.2); Monocytes Percent Auto 12.2 % (2-11); Neutrophils Absolute Auto 3.4 x10*3/uL (2.0-8.3); Neutrophils Percent Auto 52.6 % (45-73); Platelet Count 225 X10*3/uL (160-400); Red Blood Count 5.26 X10*6/uL (4.60-5.80); Red Cell Distribution Width 12.6 % (11.0-16.0); White Blood Count 6.4 X10*3/uL (4.8-10.8)
[2024-03-02 08:00] LABS: Rheumatoid Factor < 13.0 IU/mL (<15.0)
[2024-03-02 08:07] LABS: Alanine Aminotransferase 14 U/L (0-40); Albumin Level 4.3 g/dL (3.5-5.0); Alkaline Phosphatase 89 U/L (39-117); Anion Gap 16 (12-20); Aspartate Amino Transferase 13 U/L (5-37); Bilirubin Total 0.7 mg/dL (0.0-1.0); Blood Urea Nitrogen 10 mg/dL (9-16); Calcium 9.7 mg/dL (8.4-10.2); Carbon Dioxide 27 mmol/L (22-29); Chloride 98 mmol/L (96-108); Cholesterol 231 mg/dL (<200); Estimated Glomerular Filt Rate > 60; Glucose Fasting 283 mg/dL (60-99); HDL Cholesterol 42 mg/dL (>40); Iron 140 mcg/dL (45-160); LDL Cholesterol Calculated 159 mg/dL (<100); Percent Iron Saturation 51 % (15-50); Potassium 3.9 mmol/L (3.3-5.1); Sodium 137 mmol/L (135-145); Total Iron Binding Capacity 277 mcg/dL (228-428); Total Protein 7.8 g/dL (6.5-8.0); Triglycerides 150 mg/dL (<150); Unsaturated Iron Binding 137 ug/dL
[2024-03-02 08:11] LABS: Erythrocyte Sedimentation Rate 4 MM/HR (0-15)
[2024-03-02 08:21] LABS: HIV AB/AG Nonreactive (Nonreactive); HIV Num 1 0.04 S/CO (0.00-0.99)
[2024-03-02 08:22] LABS: Thyroid Stimulating Hormone 1.87 uIU/mL (0.32-4.0); Vitamin D 25-OH Total 16.4 ng/mL (>30)
[2024-03-02 08:24] LABS: Syphilis Screen Nonreactive (Nonreactive)
[2024-03-02 08:31] LABS: Creatinine Urine 261.79 mg/dL
[2024-03-02 08:32] LABS: Folate 7.5 ng/mL (> or = 4.0); Vitamin B12 297 pg/mL (200-900)
[2024-03-02 08:41] LABS: Microalbum/Creatinine Ratio Ur 583.6 ug/mg cr (<30)
[2024-03-03 13:33] LABS: RPR Rapid Plasma Reagin NON-REACTIVE (NON-REACTIVE)
[2024-03-04 16:53] LABS: CRP High Sensitivity 5.6 mg/L
[2024-03-06 07:43] LABS: Anti Nuclear Antibody Screen NEGATIVE (NEGATIVE)
== END 2024-03-02 06:54 | disposition home or self-care (01) ==
LOC: HO.LAB 06:53
PROVIDERS: Absent Provider Nurse Practitioner Family; PCP Internal Medicine; Visit Provider Internal Medicine
DX: E78.5 Hyperlipidemia, unspecified (principal); R41.0 Disorientation, unspecified; F03.90 Unspecified dementia, unspecified severity, without behavioral disturbance, psychotic disturbance, mood disturbance, and anxiety; E11.9 Type 2 diabetes mellitus without complications; E55.9 Vitamin D deficiency, unspecified; G30.0 Alzheimer's disease with early onset; F02.A0 Dementia in other diseases classified elsewhere, mild, without behavioral disturbance, psychotic disturbance, mood disturbance, and anxiety; E11.65 Type 2 diabetes mellitus with hyperglycemia; Z79.4 Long term (current) use of insulin; I10 Essential (primary) hypertension; E78.00 Pure hypercholesterolemia, unspecified; E11.42 Type 2 diabetes mellitus with diabetic polyneuropathy; D64.9 Anemia, unspecified
CPT/HCPCS: 36415; 80053; 80061; 82043; 82140; 82306; 82570; 82607; 82746; 83540; 84443; 85025; 85652; 86038; 86141; 86431; 86592; 86780; 87389

== ENCOUNTER 2024-03-17 07:55 | Outpatient (AMB) | payer MEDICARE, MEDICAID, SELFPAY ==
--- NOTE | 2024-03-17 08:11 | A.OFFPC_ITS ---
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 Required: No Accompanied by: Son Allergies enalapril [ENALAPRIL] Allergy (Unknown, Verified 03/17/24 08:24) UNKNOWN lisinopril Allergy (Unknown, Verified 03/17/24 08:24) UNKNOWN Anesthetics - Amide Type - Select A Adverse Reaction (Severe, Verified 03/17/24 08:24) loss of consciousness Medication List - Last Reconciled 03/17/24 by Radha Thakur MD amlodipine 10 mg PO DAILY atorvastatin 40 mg PO DAILY blood sugar diagnostic (FreeStyle Lite Strips) As directed three times a day blood-glucose meter (FreeStyle Lite Meter kit) As directed 3x/day [Diabetic shoes As directed] donepezil 10 mg PO BEDTIME 90 days insulin degludec (Tresiba FlexTouch U-100 insulin) 8 units (0.08 mL) subcut DAILY 30 days insulin syringe-needle U-100 (BD Insulin Syringe Ultra-Fine) Use 1 syringe needle once a day lancets (FreeStyle Lancets) Three times a day lancets As directed losartan-hydrochlorothiazide 100-12.5 mg 1 tab PO DAILY 90 days metformin 1,000 mg PO BID 90 days paroxetine HCl (Paxil) 30 mg PO DAILY 90 days pen needle, diabetic (Comfort EZ Pen [place]) Use 1 pen needle once a day semaglutide (Ozempic) 0.25 mg (0.368 mL) subcut QWEEK 28 days Tobacco use date assessed: 11/16/23 Fall risk assessment: No Falls in past year Last assessed Fall Risk: 03/17/24 Dental Screening Dental Screen Date: 11/16/23 HPI HPI Comments History of Present Illness Details This is a 69-year-old male with diabetes mellitus type 2, hypertension, hyperlipidemia, dementia and mild recurrent major depression that comes today accompanied by son which is his mixer driver for follow-up on his conditions. A1c very elevated but due to his dementia he threw away his insulin and needles and is only taking metformin. I restarted him on Ozempic once a week which will be administered by the son and since he has not going to use insulin I start him on Jardiance. Blood pressure stable and he has not been taking amlodipine therefore I will discontinue it. LDL not on goal and I increase atorvastatin from 40 mg to 80 mg. Depression somewhat stable. Dementia is follow by Neurology and today he is awake, alert and oriented only to person but not to time or place. He lives alone but son is around and very close to him. I advised the son that patient should moving with him at not be alone as soon as possible. No chest pain or shortness of breath. Also has low vitamin-D that will be supplemented. [facility] Medical History (Updated 03/17/24 @ 08:51 by Radha Thakur MD) Type 2 diabetes mellitus, with long-term current use of insulin Diabetes mellitus, with long-term current use of insulin Hearing loss Encounter for Medicare annual wellness exam Mild recurrent major depression Morbid obesity with BMI of 40.0-44.9, adult Type 2 diabetes mellitus with diabetic polyneuropathy Former smoker Lumbar radiculopathy Proteinuria Retinopathy Hyperlipidemia Obesity due to excess calories Depression with anxiety Pure hypercholesterolemia Type 2 diabetes mellitus with other diabetic kidney complication Surgical History History of surgery History of cataract surgery Family History Father No problems noted. Mother No problems noted. Social History Household Members: None Housing: Apartment Alcohol intake: former Patient Tobacco Use Status: Former Tobacco user Years Smoked: 20 years e-Cigarette/Vaping Use: Never Used Second Hand Smoke Exposure: No service: No Current occupational status: disabled Cognitive needs: No Hearing needs: Yes Vision needs: Yes Questionnaire Thrive Questionnaire Date Thrive assessed: 11/16/23 ROBERT-7 AMB Questionnaire ROBERT-7 Date ROBERT - 7 assessed: 11/16/23 Source: Developed by Drs. Skinny Wallace, Columba Garcia, Elvis Canales and colleagues, with an educational evaristo from [employer] Review of Systems Const All systems reviewed & are unremarkable except as noted in HPI and below Eyes Reports no additional complaints, Denies change in vision and Denies other visual disturbances Card Denies chest pain at rest, Denies chest pain with activity, Denies edema, Denies irregular heart rhythm, Denies claudication, Denies dyspnea, Denies dyspnea on exertion, Denies orthopnea, Denies paroxysmal nocturnal dyspnea and Denies slow heart rate Resp Denies cough, Denies dyspnea and Denies dyspnea on exertion Neuro Denies behavioral changes and Denies lack of coordination Psych Denies behavioral changes Physical exam (Primary Care) Vital Signs: Last Vital Signs BP 120/72 03/17/24 08:13 BMI result Body Mass Index 37.4 Tobacco/Smoking Status: Tobacco use Status Tobacco use date assessed 11/16/23 03/17/24 08:13 Patient Tobacco Use Status Former Tobacco user 03/17/24 08:13 e-Cigarette/Vaping Use Never Used 03/17/24 08:13 Thrive Assessment: Date of Thrive Assessment Date Thrive assessed 11/16/23 03/17/24 08:13 Resp Effort & Inspection: normal respiratory effort Auscultation: clear to auscultation bilaterally Cardio Jugular venous distension: no JVD Rate: regular rate Rhythm: regular rhythm Heart sounds: S1 normal heart sound present and S2 normal heart sound present Neuro General: no focal motor deficits Extrem General: Yes full ROM Results AMB Hemoglobin A1c AMB Hemoglobin A1c 12.1 % Last Edit by PÉREZ Torres on 03/17/24 08: 22 Results Reviewed Results Reviewed: Laboratory Last Values Hgb A1c (Clinic) 12.1 % (4.0-6.0) H 03/17/24 08:11 Assessment and Plan Assessment & Plan (1) Diabetes mellitus, without long-term current use of insulin: Code(s): E11.9 - Type 2 diabetes mellitus without complications Qualifiers: Diabetes mellitus type: type 2 Diabetes mellitus complication status: with hyperglycemia Qualified Code(s): E11.65 - Type 2 diabetes mellitus with hyperglycemia Plan: Discontinue insulin due to noncompliance. Start Jardiance. Continue metformin. Restart Ozempic. A1c goal is equal or less than 7%. (2) Dementia: Code(s): F03.90 - Unspecified dementia, unspecified severity, without behavioral disturbance, psychotic disturbance, mood disturbance, and anxiety Qualifiers: Dementia type: Alzheimer's Alzheimer's disease onset: early onset Dementia severity: mild Dementia behavioral or psychological symptom: without behavioral, psychotic, or mood disturbance or anxiety Qualified Code(s): G30.0 - Alzheimer's disease with early onset; F02.A0 - Dementia in other diseases classified elsewhere, mild, without behavioral disturbance, psychotic disturbance, mood disturbance, and anxiety Plan: Restart donepezil. Follow-up with Neurology. (3) Mild recurrent major depression: Code(s): F33.0 - Major depressive disorder, recurrent, mild Plan: Continue paroxetine. (4) HTN (hypertension): Code(s): I10 - Essential (primary) hypertension Qualifiers: Hypertension type: essential hypertension Qualified Code(s): I10 - Essential (primary) hypertension Plan: Continue losartan. Discontinue amlodipine. Blood pressure goal is equal or less than 130/80. (5) Hyperlipidemia: Code(s): E78.5 - Hyperlipidemia, unspecified Qualifiers: Hyperlipidemia type: pure hypercholesterolemia Qualified Code(s): E78.00 - Pure hypercholesterolemia, unspecified Plan: Increase atorvastatin from 40 mg to 80 mg. LDL goal is less than 70. Orders: Orders AMB Hemoglobin A1c Today E11.65 - Type 2 diabetes mellitus with hyperglycemia, Z79.4 - intermediate designer (current) use of insulin Microalbumin, Random (w Creat) Today E11.9 - Type 2 diabetes mellitus without complications Lipid Panel Today E78.5 - Hyperlipidemia, unspecified Vitamin D 25-OH Total Today E55.9 - Vitamin D deficiency, unspecified Comprehensive [place]. Panel Fast Today E11.65 - Type 2 diabetes mellitus with hyperglycemia, Z79.4 - care home (current) use of insulin Referrals Nephrology Referral R80.9 - Proteinuria, unspecified Medications: New cholecalciferol (vitamin D3) 50 mcg PO DAILY 90 days 90 caps 1RF empagliflozin (Jardiance) 10 mg PO DAILY 90 days 90 tabs 1RF E11.65 - Type 2 diabetes mellitus with hyperglycemia, Z79.4 - intermediate designer (current) use of insulin atorvastatin 80 mg PO BEDTIME 90 days 90 tabs 1RF E78.00 - Pure hypercholesterolemia, unspecified Refilled paroxetine HCl (Paxil) 30 mg PO DAILY 90 days 90 tabs 1RF F41.1 - Generalized anxiety disorder semaglutide (Ozempic) for 4 weeks 0.25 mg (0.368 mL) subcut QWEEK 28 days 1.472 mL 0RF E11.9 - Type 2 diabetes mellitus without complications, Z79.4 - intermediate designer (current) use of insulin metformin 1,000 mg PO BID 90 days 180 tabs 1RF losartan-hydrochlorothiazide 100-12.5 mg 1 tab PO DAILY 90 days 90 caps 1RF [Diabetic shoes] As directed 1 ea 0RF E11.42 - Type 2 diabetes mellitus with diabetic polyneuropathy donepezil 10 mg PO BEDTIME 90 days 90 tabs 1RF F03.90 - Unspecified dementia, unspecified severity, without behavioral disturbance, psychotic disturbance, mood disturbance, and anxiety Discontinued atorvastatin Discontinued Reason: Patient Completed Course 40 mg PO DAILY 90 caps 1RF E11.42 - Type 2 diabetes mellitus with diabetic polyneuropathy, Z79.4 - intermediate designer (current) use of insulin insulin syringe-needle U-100 (BD Insulin Syringe Ultra-Fine) Discontinued Reason: Patient Refused Use 1 syringe needle once a day 100 ea 11RF Coding Level of Care Code Est Pt Level 4 (23986) Diagnoses Type 2 diabetes mellitus with hyperglycemia, without long-term current use of insulin E11.65 Diabetes mellitus type: type 2 Diabetes mellitus complication status: with hyperglycemia Mild early onset Alzheimer's dementia without behavioral disturbance, psychotic disturbance, mood disturbance, or anxiety G30.0; F02.A0 Dementia type: Alzheimer's Alzheimer's disease onset: early onset Dementia severity: mild Dementia behavioral or psychological symptom: without behavioral, psychotic, or mood disturbance or anxiety Mild recurrent major depression F33.0 Essential hypertension I10 Hypertension type: essential hypertension Pure hypercholesterolemia E78.00 Hyperlipidemia type: pure hypercholesterolemia Time Spent (min) 25
[2024-03-17 08:13] VITALS: BP 120/72; BMI 37.4
== END 2024-03-17 08:46 | disposition home or self-care (01) ==
PROVIDERS: PCP Internal Medicine; Visit Provider Internal Medicine
DX: E11.65 Type 2 diabetes mellitus with hyperglycemia (principal); G30.0 Alzheimer's disease with early onset; F02.A0 Dementia in other diseases classified elsewhere, mild, without behavioral disturbance, psychotic disturbance, mood disturbance, and anxiety; F33.0 Major depressive disorder, recurrent, mild; I10 Essential (primary) hypertension; E78.00 Pure hypercholesterolemia, unspecified; Z79.4 Long term (current) use of insulin
CPT/HCPCS: 83036; 99214

== ENCOUNTER 2024-03-22 14:16 | Outpatient (AMB) | payer MEDICARE, MEDICAID, SELFPAY ==
[2024-03-22 14:23] VITALS: BP 128/60; PULSE 76; O2SAT 93; BMI 37.4
--- NOTE | 2024-03-22 14:23 | HO.NEPHOV ---
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 He was accompanied by son was able to translate. Nathen who has history of diabetes mellitus for more than 10 years in the setting of obesity. His renal function has been stable with a serum creatinine 0.8. Recent urine protein creatinine ratio was elevated at 583. There has been a gradual increase in the urine protein excretion over the last few years.Acute kidney injury due to compromised renal perfusion He is currently on losartan 100 mg Recently diagnosed with dementia. He has a history obstructive sleep apnea but does not use CPAP. [facility] Medical History (Updated 03/17/24 @ 08:51 by Radha Thakur MD) Type 2 diabetes mellitus, with long-term current use of insulin Diabetes mellitus, with long-term current use of insulin Hearing loss Encounter for Medicare annual wellness exam Mild recurrent major depression Morbid obesity with BMI of 40.0-44.9, adult Type 2 diabetes mellitus with diabetic polyneuropathy Former smoker Lumbar radiculopathy Proteinuria Retinopathy Hyperlipidemia Obesity due to excess calories Depression with anxiety Pure hypercholesterolemia Type 2 diabetes mellitus with other diabetic kidney complication Surgical History History of surgery History of cataract surgery Family History Father No problems noted. Mother No problems noted. Social History Household Members: None Housing: Apartment Alcohol intake: former Patient Tobacco Use Status: Former Tobacco user Years Smoked: 20 years e-Cigarette/Vaping Use: Never Used Second Hand Smoke Exposure: No service: No Current occupational status: disabled Cognitive needs: No Hearing needs: Yes Vision needs: Yes Physical Exam Vital Signs: Last Vital Signs Pulse 76 03/22/24 14:23 BP 128/60 03/22/24 14:23 Pulse Ox 93 03/22/24 14:23 Oxygen Delivery Method Room Air 03/22/24 14:23 BMI result Body Mass Index 37.4 Const General: comfortable Nutritional Appearance: well nourished Orientation/consciousness: patient oriented x3 HEENT Head: No normal to inspection Mouth: moist mucous membranes Neck Neck: Yes supple and Yes no JVD Resp Auscultation: clear to auscultation bilaterally, no rales and rub present Cardio Jugular venous distension: no JVD Palpation: no palpable S3 and no palpable S4 Heart sounds: no rubs GI Palpation (GI): Soft to palpation and nontender Percussion: No Fluid wave present General: Yes no CVA tenderness Back/Spine/Pelvis Back: no CVA tenderness Skin General skin exam: no rashes or lesions noted Neuro General: patient oriented x3 Extrem General: Yes no pedal edema and No clubbing Results Reviewed Nephrology Results: Hgb 16.1 g/dl (14.0-18.0) 03/02/24 WBC 6.4 X10*3/uL (4.8-10.8) 03/02/24 Plt Count 225 X10*3/uL (160-400) 03/02/24 Sodium 137 mmol/L (135-145) 03/02/24 Potassium 3.9 mmol/L (3.3-5.1) 03/02/24 Chloride 98 mmol/L (96-108) 03/02/24 Carbon Dioxide 27 mmol/L (22-29) 03/02/24 BUN 10 mg/dL (9-16) 03/02/24 Creatinine 0.78 mg/dL (0.5-1.4) 03/02/24 Calcium 9.7 mg/dL (8.4-10.2) 03/02/24 Urine Creatinine 261.79 mg/dL 03/02/24 Assessment & Plan Assessment & Plan (1) HTN (hypertension): Code(s): I10 - Essential (primary) hypertension Category: Medical Qualifiers: Hypertension type: essential hypertension Qualified Code(s): I10 - Essential (primary) hypertension (2) Diabetes mellitus, without long-term current use of insulin: Code(s): E11.9 - Type 2 diabetes mellitus without complications Category: Medical Qualifiers: Diabetes mellitus complication status: with hyperglycemia Diabetes mellitus type: type 2 Qualified Code(s): E11.65 - Type 2 diabetes mellitus with hyperglycemia (3) Proteinuria: Code(s): R80.9 - Proteinuria, unspecified Category: Medical Qualifiers: Proteinuria type: unspecified Qualified Code(s): R80.9 - Proteinuria, unspecified Plan . Elderly man with longstanding history of diabetes mellitus and obesity with obstructive sleep apnea has non nephrotic proteinuria. Proteinuria is most likely due to underlying diabetic kidney disease. Obesity the could be a contributing factor in the proteinuria. Other nondiabetic causes should be can see the result. At this point renal function stable. Urine sediments and plan. The goal is to slow the progression of renal disease. Blood sugar needs to optimize hemoglobin A1c should be maintained less than 7%. Recent A1c was 12.1%. He needs weight loss. Currently he is on Ozempic and he is lost 10 lb over the last few months. He will benefit from SGLT2 inhibitors. Currently he is on Jardiance and I have discussed the importance of staying on this. Agree with ROYAL inhibition. Continue with losartan 100 mg and monitor urine protein excretion. Orders: Orders Total Protein Urine Random 3 Weeks E11.65 - Type 2 diabetes mellitus with hyperglycemia, R80.9 - Proteinuria, unspecified Creatinine Urine 3 Weeks E11.65 - Type 2 diabetes mellitus with hyperglycemia, N05.9 - Unspecified nephritic syndrome with unspecified morphologic changes, R80.9 - Proteinuria, unspecified Protein Electrophoresis, Serum 3 Weeks E11.65 - Type 2 diabetes mellitus with hyperglycemia, R80.9 - Proteinuria, unspecified Coding Level of Care Code New Pt Level 4 (96490) Diagnoses Essential hypertension I10 Hypertension type: essential hypertension Type 2 diabetes mellitus with hyperglycemia, without long-term current use of insulin 65 Diabetes mellitus complication status: with hyperglycemia Diabetes mellitus type: type 2 Proteinuria, unspecified type R80.9 Proteinuria type: unspecified
== END 2024-03-22 14:49 | disposition home or self-care (01) ==
PROVIDERS: PCP Internal Medicine; Referring Provider Internal Medicine; Visit Provider Internal Medicine Hypertension Specialist
DX: I10 Essential (primary) hypertension (principal); E11.65 Type 2 diabetes mellitus with hyperglycemia; R80.9 Proteinuria, unspecified
CPT/HCPCS: 99204

== ENCOUNTER → 2024-03-22 14:16 | Outpatient (BNVA) | payer MEDICARE, MEDICAID, SELFPAY | PROVIDERS: PCP Internal Medicine; Referring Provider Internal Medicine; Visit Provider Internal Medicine Hypertension Specialist | DX: E11.65 Type 2 diabetes mellitus with hyperglycemia (principal); I10 Essential (primary) hypertension; R80.9 Proteinuria, unspecified | CPT/HCPCS: 99202 ==

== ENCOUNTER 2024-04-13 08:49 | Outpatient (REF) | payer MEDICARE, MEDICAID, SELFPAY ==
[2024-04-13 09:11] LABS: MANUAL DIFF FLAG NO
[2024-04-13 09:29] LABS: Basophils Absolute Auto 0.1 X10*3/uL (0.0-0.2); Basophils Percent Auto 1.1 % (0-2); Eosinophils Absolute Auto 0.2 X10*3/uL (0.0-0.4); Eosinophils Percent Auto 2.6 % (0-4); Hematocrit 48.7 % (42.0-52.0); Hemoglobin 16.5 g/dl (14.0-18.0); Imm Gran Abs Auto 0.01 X10*3/uL (0.00-0.03); Imm Gran Pct Auto 0.2 % (0.0-0.4); Lymphocytes Absolute Auto 2.3 X10*3/uL (1.2-4.9); Lymphocytes Percent Auto 34.6 % (20-40); Mean Corpuscular HGB Conc 33.9 g/dl (31.0-36.0); Mean Corpuscular Hemoglobin 30.3 pg (27.0-33.0); Mean Corpuscular Volume 89.5 fL (80.0-98.0); Monocytes Absolute Auto 0.7 X10*3/uL (0.1-1.2); Monocytes Percent Auto 10.1 % (2-11); Neutrophils Absolute Auto 3.4 x10*3/uL (2.0-8.3); Neutrophils Percent Auto 51.4 % (45-73); Platelet Count 172 X10*3/uL (160-400); Red Blood Count 5.44 X10*6/uL (4.60-5.80); Red Cell Distribution Width 12.1 % (11.0-16.0); White Blood Count 6.5 X10*3/uL (4.8-10.8)
[2024-04-13 09:59] LABS: Alanine Aminotransferase 16 U/L (0-40); Albumin Level 4.4 g/dL (3.5-5.0); Alkaline Phosphatase 77 U/L (39-117); Anion Gap 18 (12-20); Aspartate Amino Transferase 23 U/L (5-37); Bilirubin Total 0.6 mg/dL (0.0-1.0); Blood Urea Nitrogen 14 mg/dL (9-16); Calcium 9.7 mg/dL (8.4-10.2); Carbon Dioxide 26 mmol/L (22-29); Chloride 99 mmol/L (96-108); Cholesterol 121 mg/dL (<200); Estimated Glomerular Filt Rate > 60; Glucose Fasting 159 mg/dL (60-99); HDL Cholesterol 42 mg/dL (>40); LDL Cholesterol Calculated 59 mg/dL (<100); Potassium 4.5 mmol/L (3.3-5.1); Sodium 138 mmol/L (135-145); Total Protein 7.9 g/dL (6.5-8.0); Triglycerides 100 mg/dL (<150)
[2024-04-13 10:16] LABS: Thyroid Stimulating Hormone 1.53 uIU/mL (0.32-4.0); Vitamin D 25-OH Total 25.1 ng/mL (>30)
[2024-04-13 10:39] LABS: Creatinine Urine 100.84 mg/dL; Creatinine Urine 102.53 mg/dL; Microalbum/Creatinine Ratio Ur 15.6 ug/mg cr (<30); Total Protein Urine Random 13 mg/dL (<12)
[2024-04-13 11:31] LABS: Folate 7.1 ng/mL (> or = 4.0); Vitamin B12 319 pg/mL (200-900)
[2024-04-15 20:58] LABS: Prot Elec - Albumin 4.2 g/dL (3.8-4.8); Prot Elec - Alpha1 0.3 g/dL (0.2-0.3); Prot Elec - Alpha2 0.9 g/dL (0.5-0.9); Prot Elec - Beta 1 0.4 g/dL (0.4-0.6); Prot Elec - Beta 2 0.5 g/dL (0.2-0.5); Prot Elec - Gamma 1.1 g/dL (0.8-1.7); Prot Elec - Total Protein 7.4 g/dL (6.1-8.1)
== END 2024-04-13 08:50 | disposition home or self-care (01) ==
LOC: HO.LAB 08:49
PROVIDERS: PCP Internal Medicine; Visit Provider Internal Medicine Hypertension Specialist
DX: E11.65 Type 2 diabetes mellitus with hyperglycemia (principal); D64.9 Anemia, unspecified; R80.9 Proteinuria, unspecified; Z79.4 Long term (current) use of insulin; E53.8 Deficiency of other specified B group vitamins; R41.0 Disorientation, unspecified; E78.5 Hyperlipidemia, unspecified; F03.90 Unspecified dementia, unspecified severity, without behavioral disturbance, psychotic disturbance, mood disturbance, and anxiety; E55.9 Vitamin D deficiency, unspecified
CPT/HCPCS: 36415; 80053; 80061; 82043; 82306; 82570; 82607; 82746; 84156; 84165; 84443; 85025

== ENCOUNTER → 2024-04-21 09:47 | Outpatient (BNVA) | payer MEDICARE, MEDICAID, SELFPAY | PROVIDERS: PCP Internal Medicine; Visit Provider Internal Medicine Hypertension Specialist | DX: R80.9 Proteinuria, unspecified (principal); E11.65 Type 2 diabetes mellitus with hyperglycemia; E11.42 Type 2 diabetes mellitus with diabetic polyneuropathy; E11.29 Type 2 diabetes mellitus with other diabetic kidney complication; I12.9 Hypertensive chronic kidney disease with stage 1 through stage 4 chronic kidney disease, or unspecified chronic kidney disease | CPT/HCPCS: 99212 ==

== ENCOUNTER 2024-04-21 09:50 | Outpatient (AMB) | payer MEDICARE, MEDICAID, SELFPAY ==
[2024-04-21 09:49] VITALS: BP 110/54; PULSE 70; O2SAT 94; BMI 35.2
--- NOTE | 2024-04-21 09:49 | HO.NEPHOV_ITS ---
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 Accompanied by: Son Allergies enalapril [ENALAPRIL] Allergy (Unknown, Verified 04/21/24 09:51) UNKNOWN lisinopril Allergy (Unknown, Verified 04/21/24 09:51) UNKNOWN Anesthetics - Amide Type - Select A Adverse Reaction (Severe, Verified 04/21/24 09:51) loss of consciousness Medication List - Last Reconciled 04/21/24 by Adan Farah MD atorvastatin 40 mg PO BID blood sugar diagnostic (FreeStyle Lite Strips) As directed three times a day blood-glucose meter (FreeStyle Lite Meter kit) As directed 3x/day cholecalciferol (vitamin D3) 50 mcg PO DAILY [Diabetic shoes As directed] donepezil 10 mg PO BEDTIME 90 days empagliflozin (Jardiance) 10 mg PO DAILY 90 days lancets (FreeStyle Lancets) Three times a day lancets As directed losartan-hydrochlorothiazide 100-12.5 mg 1 tab PO DAILY 90 days metformin 1,000 mg PO BID 90 days paroxetine HCl (Paxil) 30 mg PO DAILY 90 days pen needle, diabetic (Comfort EZ Pen [place]) Use 1 pen needle once a day semaglutide (Ozempic) 0.25 mg (0.368 mL) subcut QWEEK 28 days HPI Comments Details: Nathen is a pleasant 69-year-old man referred for proteinuria. He was accompanied by son was able to translate. Nathen who has history of diabetes mellitus for more than 10 years in the setting of obesity. His renal function has been stable with a serum creatinine 0.8. Recent urine protein creatinine ratio was elevated at 583. There has been a gradual increase in the urine protein excretion over the last few years.Acute kidney injury due to compromised renal perfusion He is currently on losartan 100 mg Recently diagnosed with dementia. He has a history obstructive sleep apnea but does not use CPAP. 04/21/24: Doing well. No new issues On JArdiace. Accompanied by son [facility] Medical History (Updated 03/17/24 @ 08:51 by Radha Thakur MD) Type 2 diabetes mellitus, with long-term current use of insulin Diabetes mellitus, with long-term current use of insulin Hearing loss Encounter for Medicare annual wellness exam Mild recurrent major depression Morbid obesity with BMI of 40.0-44.9, adult Type 2 diabetes mellitus with diabetic polyneuropathy Former smoker Lumbar radiculopathy Proteinuria Retinopathy Hyperlipidemia Obesity due to excess calories Depression with anxiety Pure hypercholesterolemia Type 2 diabetes mellitus with other diabetic kidney complication Surgical History History of surgery History of cataract surgery Family History Father No problems noted. Mother No problems noted. Social History Household Members: None Housing: Apartment Alcohol intake: former Patient Tobacco Use Status: Former Tobacco user Years Smoked: 20 years e-Cigarette/Vaping Use: Never Used Second Hand Smoke Exposure: No service: No Current occupational status: disabled Cognitive needs: No Hearing needs: Yes Vision needs: Yes Physical Exam Vital Signs: Last Vital Signs Pulse 70 04/21/24 09:49 BP 110/54 L 04/21/24 09:49 Pulse Ox 94 04/21/24 09:49 Oxygen Delivery Method Room Air 04/21/24 09:49 BMI result Body Mass Index 35.2 Const General: comfortable; No acute distress Orientation/consciousness: patient oriented x3 Eyes General: appearance normal, both eyes and all related structures Visual Rhodes: normal visual rhodes by confrontation Neck Neck: Yes supple and Yes no JVD Resp Effort & Inspection: normal respiratory effort and respiratory effort not decreased Auscultation: rhonchi Cardio Palpation: no palpable S3 and no palpable S4 Heart sounds: no rubs GI Inspection: Yes normal to inspection Palpation (GI): Soft to palpation Percussion: Yes normal to percussion Auscultation: normal bowel sounds General: Yes no CVA tenderness Back/Spine/Pelvis Back: no CVA tenderness Skin General skin exam: no petechiae and no purpura Neuro General: patient oriented x3 and no focal motor deficits Extrem General: No clubbing and No edema Results Reviewed Nephrology Results: Hgb 16.5 g/dl (14.0-18.0) 04/13/24 WBC 6.5 X10*3/uL (4.8-10.8) 04/13/24 Plt Count 172 X10*3/uL (160-400) 04/13/24 Sodium 138 mmol/L (135-145) 04/13/24 Potassium 4.5 mmol/L (3.3-5.1) 04/13/24 Chloride 99 mmol/L (96-108) 04/13/24 Carbon Dioxide 26 mmol/L (22-29) 04/13/24 BUN 14 mg/dL (9-16) 04/13/24 Creatinine 0.79 mg/dL (0.5-1.4) 04/13/24 Calcium 9.7 mg/dL (8.4-10.2) 04/13/24 Urine Creatinine 102.53 mg/dL 04/13/24 Assessment & Plan Assessment & Plan (1) HTN (hypertension): Code(s): I10 - Essential (primary) hypertension Category: Medical Qualifiers: Hypertension type: essential hypertension Qualified Code(s): I10 - Essential (primary) hypertension (2) Diabetes mellitus, without long-term current use of insulin: Code(s): E11.9 - Type 2 diabetes mellitus without complications Category: Medical Qualifiers: Diabetes mellitus complication status: with hyperglycemia Diabetes mellitus type: type 2 Qualified Code(s): E11.65 - Type 2 diabetes mellitus with hyperglycemia (3) Proteinuria: Code(s): R80.9 - Proteinuria, unspecified Category: Medical Qualifiers: Proteinuria type: unspecified Qualified Code(s): R80.9 - Proteinuria, unspecified (4) Microalbuminuria: Code(s): R80.9 - Proteinuria, unspecified Category: Medical Plan . Elderly man with longstanding history of diabetes mellitus and obesity with obstructive sleep apnea has non nephrotic proteinuria. Proteinuria is most likely due to underlying diabetic kidney disease. Obesity the could be a contributing factor in the proteinuria. Other nondiabetic causes seem unlikely At this point renal function stable. Urine sediments are bland. The goal is to slow the progression of renal disease. Blood sugar needs to optimize hemoglobin A1c should be maintained less than 7%. Recent A1c was 12.1%. He needs weight loss. Currently he is on Ozempic and he is lost 10 lb over the last few months. He will benefit from SGLT2 inhibitors. Currently he is on Jardiance and I have discussed the importance of staying on this. Agree with ROYAL inhibition. Continue with losartan 100 mg and monitor urine protein excretion. Renal function is stable. Shall monitor renal function as well Orders: Orders Basic Metabolic Panel 6 Months R80.9 - Proteinuria, unspecified UA and rflx microscopic 6 Months R80.9 - Proteinuria, unspecified Total Protein Urine Random 6 Months R80.9 - Proteinuria, unspecified Creatinine Urine 6 Months R80.9 - Proteinuria, unspecified Coding Level of Care Code Est Pt Level 4 (43555) Diagnoses Essential hypertension I10 Hypertension type: essential hypertension Type 2 diabetes mellitus with hyperglycemia, without long-term current use of insulin E11.65 Diabetes mellitus complication status: with hyperglycemia Diabetes mellitus type: type 2 Proteinuria, unspecified type R80.9 Proteinuria type: unspecified Microalbuminuria R80.9
== END 2024-04-21 10:01 | disposition home or self-care (01) ==
PROVIDERS: PCP Internal Medicine; Visit Provider Internal Medicine Hypertension Specialist
DX: I10 Essential (primary) hypertension (principal); E11.65 Type 2 diabetes mellitus with hyperglycemia; R80.9 Proteinuria, unspecified
CPT/HCPCS: 99214

== ENCOUNTER 2024-04-29 12:53 | Outpatient (REF) | payer MEDICARE, MEDICAID, SELFPAY ==
--- NOTE | 2024-04-29 12:56 | EEG_ITS ---
This is a 16-channel EEG with an EKG lead. The patient is reported awake during the tracing. Background EEG rhythm is mixed theta, beta medium amplitude with no obvious asymmetry or paroxysmal tendency. Some lead and muscle artifacts are noted. Cardiac lead does not reveal any significant abnormality. Photic stimulation is unremarkable. Hyperventilation is not performed. IMPRESSION: Mild generalized slowing with no evidence of seizure disorder. MD BURTON Andino/JOSE M / [phone]
== END 2024-04-29 12:54 | disposition home or self-care (01) ==
LOC: HO.NEURO 12:53
PROVIDERS: PCP Internal Medicine; Visit Provider Nurse Practitioner Family
DX: R41.89 Other symptoms and signs involving cognitive functions and awareness (principal)
CPT/HCPCS: 95816

== ENCOUNTER 2024-05-16 16:19 | Outpatient (AMB) | payer MEDICARE, MEDICAID, SELFPAY ==
[2024-05-16 16:24] VITALS: BP 82/50; PULSE 94; O2SAT 96; BMI 33.3
--- NOTE | 2024-05-16 16:24 | MHC.PC.OV ---
Vital Signs 05/16/24 16:24 Height 5 ft 3 in Weight 188 lb BMI 33.3 BP 82/50 L Blood Pressure Location Lt brachial Position Sitting Pulse 94 Pulse Source Pulse Oximeter Pulse Oximetry (%) 96 Oxygen Delivery Method Room Air Intake Visit Reasons: physical exam Intake Note: Patient is here today for a physical. 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 Required: No Accompanied by: Son-Jimbo Allergies enalapril [ENALAPRIL] Allergy (Unknown, Verified 05/16/24 16:37) UNKNOWN lisinopril Allergy (Unknown, Verified 05/16/24 16:37) UNKNOWN Anesthetics - Amide Type - Select A Adverse Reaction (Severe, Verified 05/16/24 16:37) loss of consciousness Medication List - Last Reconciled 05/16/24 by Radha Thakur MD atorvastatin 40 mg PO BID blood sugar diagnostic (FreeStyle Lite Strips) As directed three times a day blood-glucose meter (FreeStyle Lite Meter kit) As directed 3x/day cholecalciferol (vitamin D3) 50 mcg PO DAILY [Diabetic shoes As directed] donepezil 10 mg PO BEDTIME 90 days empagliflozin (Jardiance) 10 mg PO DAILY 90 days lancets (FreeStyle Lancets) Three times a day lancets As directed losartan-hydrochlorothiazide 100-12.5 mg 1 tab PO DAILY 90 days metformin 1,000 mg PO BID 90 days paroxetine HCl (Paxil) 30 mg PO DAILY 90 days pen needle, diabetic (Comfort EZ Pen [place]) Use 1 pen needle once a day semaglutide (Ozempic) 0.25 mg (0.368 mL) subcut QWEEK 28 days Tobacco use date assessed: 11/16/23 Fall risk assessment: No Falls in past year Last assessed Fall Risk: 05/16/24 Dental Screening Dental Screen Date: 11/16/23 HPI HPI Comments History of Present Illness Details This is a 69-year-old male with diabetes mellitus type 2, hypertension, hyperlipidemia, mild recurrent major depression and dementia that comes today accompanied by son which is the clean in places operator for follow-up on his conditions. Last A1c was elevated. Ozempic will be increased from 0.25-0.5 mg. Blood pressure is too low and I will change losartan -hydrochlorothiazide to losartan 50 mg. Lipid panel will be order and his LDL goal should be less than 70. Depression stable with paroxetine. Dementia has not significantly changed and is on donepezil for this matter. No chest pain or shortness on breath. He is awake, alert and oriented to person and place but not to time. [facility] Medical History (Updated 03/17/24 @ 08:51 by Radha Thakur MD) Type 2 diabetes mellitus, with long-term current use of insulin Diabetes mellitus, with long-term current use of insulin Hearing loss Encounter for Medicare annual wellness exam Mild recurrent major depression Morbid obesity with BMI of 40.0-44.9, adult Type 2 diabetes mellitus with diabetic polyneuropathy Former smoker Lumbar radiculopathy Proteinuria Retinopathy Hyperlipidemia Obesity due to excess calories Depression with anxiety Pure hypercholesterolemia Type 2 diabetes mellitus with other diabetic kidney complication Surgical History History of surgery History of cataract surgery Family History Father No problems noted. Mother No problems noted. Social History Household Members: None Housing: Apartment Alcohol intake: former Patient Tobacco Use Status: Former Tobacco user Years Smoked: 20 years e-Cigarette/Vaping Use: Never Used Second Hand Smoke Exposure: No service: No Current occupational status: disabled Cognitive needs: No Hearing needs: Yes Vision needs: Yes Questionnaire Thrive Questionnaire Date Thrive assessed: 11/16/23 ROBERT-7 AMB Questionnaire ROBERT-7 Date ROBERT - 7 assessed: 11/16/23 Source: Developed by Drs. Skinny Wallace, Columba Garcia, Elvis Canales and colleagues, with an educational evaristo from [employer]. Review of Systems Const All systems reviewed & are unremarkable except as noted in HPI and below Card Denies chest pain at rest, Denies chest pain with activity, Denies edema, Denies irregular heart rhythm, Denies claudication, Denies dyspnea, Denies dyspnea on exertion, Denies orthopnea, Denies paroxysmal nocturnal dyspnea and Denies slow heart rate Resp Denies cough, Denies dyspnea and Denies dyspnea on exertion GI Denies abdominal pain, Denies change in bowel habits, Denies excessive flatus, Denies nausea and Denies vomiting Physical exam (Primary Care) Vital Signs: Last Vital Signs Pulse 94 05/16/24 16:24 BP 82/50 L 05/16/24 16:24 Pulse Ox 96 05/16/24 16:24 Oxygen Delivery Method Room Air 05/16/24 16:24 BMI result Body Mass Index 33.3 BMI Assessment/Plan discussion: High BMI High, discussed plan: lifestyle, weight reduction, dietary and physical activity Tobacco/Smoking Status: Tobacco use Status Tobacco use date assessed 11/16/23 05/16/24 16:25 Patient Tobacco Use Status Former Tobacco user 05/16/24 16:25 e-Cigarette/Vaping Use Never Used 05/16/24 16:25 Thrive Assessment: Date of Thrive Assessment Date Thrive assessed 11/16/23 05/16/24 16:25 Resp Effort & Inspection: normal respiratory effort Auscultation: clear to auscultation bilaterally Cardio Jugular venous distension: no JVD Rate: regular rate Rhythm: regular rhythm Heart sounds: S1 normal heart sound present and S2 normal heart sound present Neuro General: no focal motor deficits Extrem General: Yes full ROM Assessment and Plan Assessment & Plan (1) Diabetes mellitus, without long-term current use of insulin: Code(s): E11.9 - Type 2 diabetes mellitus without complications Qualifiers: Diabetes mellitus type: type 2 Diabetes mellitus complication status: with hyperglycemia Qualified Code(s): E11.65 - Type 2 diabetes mellitus with hyperglycemia Plan: Continue Jardiance and metformin. Increase Ozempic to 0.5 mg. A1c goal is equal or less than 7%. (2) Dementia: Code(s): F03.90 - Unspecified dementia, unspecified severity, without behavioral disturbance, psychotic disturbance, mood disturbance, and anxiety Qualifiers: Dementia type: Alzheimer's Alzheimer's disease onset: early onset Dementia severity: mild Dementia behavioral or psychological symptom: without behavioral, psychotic, or mood disturbance or anxiety Qualified Code(s): G30.0 - Alzheimer's disease with early onset; F02.A0 - Dementia in other diseases classified elsewhere, mild, without behavioral disturbance, psychotic disturbance, mood disturbance, and anxiety Plan: Continue donepezil. Follow-up with Neurology. (3) Mild recurrent major depression: Code(s): F33.0 - Major depressive disorder, recurrent, mild Plan: Continue paroxetine. (4) HTN (hypertension): Code(s): I10 - Essential (primary) hypertension Qualifiers: Hypertension type: essential hypertension Qualified Code(s): I10 - Essential (primary) hypertension Plan: Discontinue losartan -hydrochlorothiazide. Start losartan 50 mg once a day. Blood pressure goal is equal or less than 130/80 And above 90/60. (5) Hyperlipidemia: Code(s): E78.5 - Hyperlipidemia, unspecified Qualifiers: Hyperlipidemia type: pure hypercholesterolemia Qualified Code(s): E78.00 - Pure hypercholesterolemia, unspecified Plan: Continue statins. Repeat lipid panel. LDL goal is less than 70. Orders: Orders Microalbumin, Random (w Creat) 4 Months E11.9 - Type 2 diabetes mellitus without complications Vitamin D 25-OH Total 4 Months E55.9 - Vitamin D deficiency, unspecified Lipid Panel 4 Months E78.5 - Hyperlipidemia, unspecified Comprehensive [place]. Panel Fast 4 Months E11.65 - Type 2 diabetes mellitus with hyperglycemia Medications: New semaglutide (Ozempic) 0.5 mg (0.736 mL) subcut QWEEK 4 weeks 2.944 mL 0RF E11.65 - Type 2 diabetes mellitus with hyperglycemia losartan 50 mg PO DAILY 90 days 90 tabs 1RF Changed From atorvastatin 40 mg PO BID To atorvastatin 40 mg PO BID 90 days 180 tabs 1RF Discontinued semaglutide (Ozempic) for 4 weeks Discontinued Reason: Patient Completed Course 0.25 mg (0.368 mL) subcut QWEEK 28 days 1.472 mL 0RF E11.9 - Type 2 diabetes mellitus without complications, Z79.4 - retirement (current) use of insulin losartan-hydrochlorothiazide 100-12.5 mg Discontinued Reason: Patient Completed Course 1 tab PO DAILY 90 days 90 caps 1RF Coding Level of Care Code Est Pt Level 4 (07055) Complex EM visit Add On G2211 Diagnoses Type 2 diabetes mellitus with hyperglycemia, without long-term current use of insulin E11.65 Diabetes mellitus type: type 2 Diabetes mellitus complication status: with hyperglycemia Mild early onset Alzheimer's dementia without behavioral disturbance, psychotic disturbance, mood disturbance, or anxiety G30.0; F02.A0 Dementia type: Alzheimer's Alzheimer's disease onset: early onset Dementia severity: mild Dementia behavioral or psychological symptom: without behavioral, psychotic, or mood disturbance or anxiety Mild recurrent major depression F33.0 Essential hypertension I10 Hypertension type: essential hypertension Pure hypercholesterolemia E78.00 Hyperlipidemia type: pure hypercholesterolemia Time Spent (min) 23
== END 2024-05-16 16:48 | disposition home or self-care (01) ==
PROVIDERS: PCP Internal Medicine; Visit Provider Internal Medicine
DX: E11.65 Type 2 diabetes mellitus with hyperglycemia (principal); G30.0 Alzheimer's disease with early onset; F02.A0 Dementia in other diseases classified elsewhere, mild, without behavioral disturbance, psychotic disturbance, mood disturbance, and anxiety; F33.0 Major depressive disorder, recurrent, mild; I10 Essential (primary) hypertension; E78.00 Pure hypercholesterolemia, unspecified
CPT/HCPCS: 99214; G2211

== ENCOUNTER 2024-09-07 10:44 | Outpatient (AMB) | payer MEDICARE, MEDICAID, SELFPAY ==
--- NOTE | 2024-09-07 11:31 | MHC.OFFVIS ---
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 Accompanied by: Son Allergies enalapril [ENALAPRIL] Allergy (Unknown, Verified 09/07/24 11:37) UNKNOWN lisinopril Allergy (Unknown, Verified 09/07/24 11:37) UNKNOWN Anesthetics - Amide Type - Select A Adverse Reaction (Severe, Verified 09/07/24 11:37) loss of consciousness Medication List - Last Reconciled 09/07/24 by CARLITA Lopez atorvastatin 40 mg PO BID 90 days blood sugar diagnostic (FreeStyle Lite Strips) As directed three times a day blood-glucose meter (FreeStyle Lite Meter kit) As directed 3x/day cholecalciferol (vitamin D3) 50 mcg PO DAILY [Diabetic shoes As directed] donepezil 10 mg PO BEDTIME 90 days empagliflozin (Jardiance) 10 mg PO DAILY 90 days lancets (FreeStyle Lancets) Three times a day lancets As directed losartan 50 mg PO DAILY 90 days memantine 7 mg PO DAILY 30 days metformin 1,000 mg PO BID 90 days paroxetine HCl (Paxil) 30 mg PO DAILY 90 days pen needle, diabetic (Comfort EZ Pen [place]) Use 1 pen needle once a day semaglutide (Ozempic) 1 mg (0.75 mL) subcut QWEEK 4 weeks HPI Comments Details: Right-handed 69-yr-old male presents for neurological evaluation of cognitive difficulties. Pt is accompanied by his son. Pt reports he is doing well. Pt's son reports pt continues to have STM forgetfulness, repeating himself, misplacing items. EEG showed slowing but no epileptic activity. He lives alone in senior housing apartment. Son now helps with finances and grocery shopping. He now has a [employer]IS[employer] FILLER who is helping w/ laundry. Pt continues to cook, tends to eat dinner early in the day. He has left the stove on. No usual unsafe behaviors. However the other day, he took a walk with a neighbor without telling anyone and w/o bringing his phone. Pt reports he is sleeping well. Denies anorexia, GI upset, lightheadedness. [facility] Medical History (Updated 03/17/24 @ 08:51 by Radha Thakur MD) Type 2 diabetes mellitus, with long-term current use of insulin Diabetes mellitus, with long-term current use of insulin Hearing loss Encounter for Medicare annual wellness exam Mild recurrent major depression Morbid obesity with BMI of 40.0-44.9, adult Type 2 diabetes mellitus with diabetic polyneuropathy Former smoker Lumbar radiculopathy Proteinuria Retinopathy Hyperlipidemia Obesity due to excess calories Depression with anxiety Pure hypercholesterolemia Type 2 diabetes mellitus with other diabetic kidney complication Surgical History History of surgery History of cataract surgery Family History Father No problems noted. Mother No problems noted. Social History Household Members: None Housing: Apartment Alcohol intake: former Patient Tobacco Use Status: Former Tobacco user Years Smoked: 20 years e-Cigarette/Vaping Use: Never Used Second Hand Smoke Exposure: No service: No Current occupational status: disabled Cognitive needs: No Hearing needs: Yes Vision needs: Yes Physical Exam Vital Signs: Last Vital Signs Pulse 64 09/07/24 11:32 BP 110/62 09/07/24 11:32 Pulse Ox 97 09/07/24 11:32 Oxygen Delivery Method Room Air 09/07/24 11:32 BMI result Body Mass Index 32.2 Const General: cooperative and no acute distress Resp Effort & Inspection: normal respiratory effort and able to speak in complete sentences Neuro Other: A&O w/ some STM lapses General: CN's II-XI intact bilaterally and deep tendon reflexes 2+ bilaterally Gait exam (Neuro): Normal gait present Motor exam (neuro): 5/5 motor strength present throughout Psych Appearance: grossly normal Mental Status: mental status grossly normal Speech and movement: Normal speech and movement present Affect: normal affect Attitude: cooperative Quality Reporting (2019) Adult ([facility] 138///69) Smoking risk assessment performed?: Yes Patient Tobacco Use Status: Former Tobacco user Assessment & Plan Assessment & Plan (1) Dementia: Code(s): F03.90 - Unspecified dementia, unspecified severity, without behavioral disturbance, psychotic disturbance, mood disturbance, and anxiety Category: Medical Qualifiers: Alzheimer's disease onset: early onset Dementia behavioral or psychological symptom: without behavioral, psychotic, or mood disturbance or anxiety Dementia severity: mild Dementia type: Alzheimer's Qualified Code(s): G30.0 - Alzheimer's disease with early onset; F02.A0 - Dementia in other diseases classified elsewhere, mild, without behavioral disturbance, psychotic disturbance, mood disturbance, and anxiety (2) Cognitive impairment: Code(s): R41.89 - Other symptoms and signs involving cognitive functions and awareness Category: Medical (3) ZACH (obstructive sleep apnea): Code(s): G47.33 - Obstructive sleep apnea (adult) (pediatric) Category: Medical Plan Reviewed EEG- generalized slowing RADHA, ESR, RPR/HIV- unremarkable. CRP- 5.6 H- likely r/t HTN/DM- continue to optimize CV and metabolic risk factors. Discussed ordering f/u sleep study, pt declines as he states he sleeps well. Will monitor. Continue AN[employer] F[employer]ER care, family support. Continue Donepazil 10mg qd. Start Memantine ER 7mg qd, when refill due, if well-tolerated, increase dose q 30days to 14mg qd, then 21mg qd, then 28mg qd. Medications: New memantine then stop and increase to 14mg qd 7 mg PO DAILY 30 ea 0RF 30 days Coding Level of Care Code Est Pt Level 4 (31034) Diagnoses Mild early onset Alzheimer's dementia without behavioral disturbance, psychotic disturbance, mood disturbance, or anxiety G30.0; F02.A0 Alzheimer's disease onset: early onset Dementia behavioral or psychological symptom: without behavioral, psychotic, or mood disturbance or anxiety Dementia severity: mild Dementia type: Alzheimer's Cognitive impairment R41.89 ZACH (obstructive sleep apnea) G47.33
[2024-09-07 11:32] VITALS: BP 110/62; PULSE 64; O2SAT 97; BMI 32.2
== END 2024-09-07 12:20 | disposition home or self-care (01) ==
LOC: HO.HSMS 10:44
PROVIDERS: PCP Internal Medicine; Visit Provider Nurse Practitioner Family
DX: G30.0 Alzheimer's disease with early onset (principal); F02.A0 Dementia in other diseases classified elsewhere, mild, without behavioral disturbance, psychotic disturbance, mood disturbance, and anxiety; R41.89 Other symptoms and signs involving cognitive functions and awareness; G47.33 Obstructive sleep apnea (adult) (pediatric)
CPT/HCPCS: 99214

== ENCOUNTER → 2024-09-07 10:44 | Outpatient (BNVA) | payer MEDICARE, MEDICAID, SELFPAY | PROVIDERS: PCP Internal Medicine; Visit Provider Nurse Practitioner Family | DX: G30.0 Alzheimer's disease with early onset (principal); F02.A0 Dementia in other diseases classified elsewhere, mild, without behavioral disturbance, psychotic disturbance, mood disturbance, and anxiety; R41.89 Other symptoms and signs involving cognitive functions and awareness; G47.33 Obstructive sleep apnea (adult) (pediatric) | CPT/HCPCS: 99212 ==

== ENCOUNTER 2024-10-13 10:00 | Outpatient (AMB) | payer MEDICARE, MEDICAID, SELFPAY ==
[2024-10-13 10:20] VITALS: BP 122/80; BMI 33.1
--- NOTE | 2024-10-13 10:20 | A.OFFPC_ITS ---
Vital Signs 10/13/24 10:20 Height 5 ft 3 in Weight 187 lb BMI 33.1 BP 122/80 Blood Pressure Location Lt brachial Position Sitting Intake Visit Reasons: 4 Month F/U Intake Note: Patient here for a 4 month follow up, medication concerns Devulcanizer Charger Required: No Accompanied by: Son Allergies enalapril [ENALAPRIL] Allergy (Unknown, Verified 10/13/24 10:44) UNKNOWN lisinopril Allergy (Unknown, Verified 10/13/24 10:44) UNKNOWN Anesthetics - Amide Type - Select A Adverse Reaction (Severe, Verified 10/13/24 10:44) loss of consciousness Medication List - Last Reconciled 10/13/24 by Radha Thakur MD atorvastatin 80 mg PO DAILY blood sugar diagnostic (FreeStyle Lite Strips) As directed three times a day blood-glucose meter (FreeStyle Lite Meter kit) As directed 3x/day cholecalciferol (vitamin D3) 50 mcg PO DAILY [Diabetic shoes As directed] donepezil 10 mg PO BEDTIME 90 days empagliflozin (Jardiance) 10 mg PO DAILY 90 days lancets (FreeStyle Lancets) Three times a day lancets As directed losartan 50 mg PO DAILY 90 days memantine 14 mg PO DAILY 30 days metformin 1,000 mg PO BID 90 days paroxetine HCl (Paxil) 30 mg PO DAILY 90 days pen needle, diabetic (Comfort EZ Pen [place]) Use 1 pen needle once a day semaglutide (Ozempic) 1 mg (0.75 mL) subcut QWEEK 4 weeks Tobacco use date assessed: 11/16/23 Fall risk assessment: No Falls in past year Last assessed Fall Risk: 10/13/24 Dental Screening Dental Screen Date: 10/13/24 Did you have a dental visit in the last 12 months?: No Did you have a dental problem in the last 6 months where you did not have access to dental care?: No Was dental information given to patient?: Patient declined HPI HPI Comments History of Present Illness Details The patient is a 69-year-old male presenting for management of diabetes, hypertension, and Alzheimer's disease. He is currently taking medications for these conditions; however, there is concern about adherence as he reportedly takes his medications all at once rather than as scheduled. The patient has been experiencing issues with medication management and has discussed options like a medication dispenser. His diabetes is well-managed as indicated by good control of blood sugar levels. The patient has been diagnosed with Alzheimer?s disease; his condition affects his cognitive functions, leading to difficulties with time orientation and navigation around his home. He has mild non-proliferative diabetic retinopathy diagnosed in November and is due for a follow-up next month. There were no reports of chest pain, fever, cough, or shortness of breath. The patient receives care from his family, who assist with medications and appointments. [facility] Medical History Type 2 diabetes mellitus, with long-term current use of insulin Diabetes mellitus, with long-term current use of insulin Hearing loss Encounter for Medicare annual wellness exam Mild recurrent major depression Morbid obesity with BMI of 40.0-44.9, adult Type 2 diabetes mellitus with diabetic polyneuropathy Former smoker Lumbar radiculopathy Proteinuria Retinopathy Hyperlipidemia Obesity due to excess calories Depression with anxiety Pure hypercholesterolemia Type 2 diabetes mellitus with other diabetic kidney complication Surgical History History of surgery History of cataract surgery Family History Father No problems noted. Mother No problems noted. Social History Household Members: None Housing: Apartment Alcohol intake: former Patient Tobacco Use Status: Former Tobacco user Years Smoked: 20 years e-Cigarette/Vaping Use: Never Used Second Hand Smoke Exposure: No service: No Current occupational status: disabled Cognitive needs: No Hearing needs: Yes Vision needs: Yes Questionnaire Thrive Questionnaire Date Thrive assessed: 11/16/23 ROBERT-7 AMB Questionnaire ROBERT-7 Date ROBERT - 7 assessed: 11/16/23 Source: Developed by Drs. Skinny Wallace, Columba Garcia, Elvis Canales and colleagues, with an educational evaristo from [employer]. Review of Systems Const Details: - General: Reports weight increase. - Cardiovascular: Denies chest pain or shortness of breath. - Respiratory: Denies cough or fever. - Endocrine: Good blood sugar control reported. Physical exam (Primary Care) Vital Signs: Last Vital Signs BP 122/80 10/13/24 10:20 BMI result Body Mass Index 33.1 BMI Assessment/Plan discussion: High BMI High, discussed plan: lifestyle, weight reduction, dietary and physical activity Tobacco/Smoking Status: Tobacco use Status Tobacco use date assessed 11/16/23 10/13/24 10:25 Patient Tobacco Use Status Former Tobacco user 10/13/24 10:25 e-Cigarette/Vaping Use Never Used 10/13/24 10:25 Thrive Assessment: Date of Thrive Assessment Date Thrive assessed 11/16/23 10/13/24 10:25 Const Other: Orientation/Consciousness: Oriented to person only but not to time or place Head: Normal to inspection, Yes normocephalic and Yes atraumatic Respiratory: Normal respiratory effort, clear to auscultation bilaterally Cardiovascular: No jugular venous distension, regular rate, regular rhythm, S1 normal heart sound present and S2 normal heart sound present Neurology: Patient oriented x1, no focal motor deficits Extremities: Full ROM Psychology: Grossly normal Office Procedures Flu Questionnaire Does the patient have a severe egg allergy?: No Does the patient have severe life threatening allergies?: No Does the patient have a fever or illness today?: No Has the patient ever had Guillain-[place] Syndrome?: No Has the patient ever had any past reaction to a flu shot?: No Results AMB Hemoglobin A1c AMB Hemoglobin A1c 6.7 % Last Edit by PÉREZ Torres on 10/13/24 10:2 6 Immunizations Fluarix Triv [id number] (PF) 45 mcg (15 mcg x 3)/0.5 mL IM syringe Performing Provider: Radha Thakur MD Performing Location[facility] Administered by: PÉREZ Torres on 10/13/24 11:07 Dose Route Admin Location Dispensed Lot Number Expiration Date NDC Copy Preparer 0.5 mL IM Left Deltoid 0.5 mL [id number] 05/01/25 [id number] [employer] VIS Given Date VIS Provided VIS Publication Date 10/13/24 Single Vaccine 21 Eligibility Eligibility Date Funding Source Not VFC Eligible 10/13/24 Private pneumoc 20-ewa conj-dip cr(PF) 0.5 mL IM syringe Performing Provider: Radha Thakur MD Performing Location: [facility] Adult [facility] Administered by: PÉREZ Torres on 10/13/24 11:07 Dose Route Admin Location Dispensed Lot Number Expiration Date NDC Copy Preparer 0.5 mL IM Right Deltoid 0.5 mL [id number] 12/31/25 [employer] VIS Given Date VIS Provided VIS Publication Date 10/13/24 Single Vaccine 21 Eligibility Eligibility Date Funding Source Not [facility] Eligible 10/13/24 Private Results Reviewed Results Reviewed: Laboratory Last Values Hgb A1c (Clinic) 6.7 % (4.0-6.0) H 10/13/24 10:09 Coding Level of Care Code Est Pt Level 4 (94990) Complex EM visit Add On G2211 Diagnoses Type 2 diabetes mellitus with hyperglycemia, without long-term current use of insulin E11.65 Diabetes mellitus type: type 2 Diabetes mellitus complication status: with hyperglycemia Mild early onset Alzheimer's dementia without behavioral disturbance, psychotic disturbance, mood disturbance, or anxiety G30.0; F02.A0 Dementia type: Alzheimer's Alzheimer's disease onset: early onset Dementia severity: mild Dementia behavioral or psychological symptom: without behavioral, psychot ic, or mood disturbance or anxiety Mild recurrent major depression F33.0 Essential hypertension I10 Hypertension type: essential hypertension Pure hypercholesterolemia E78.00 Hyperlipidemia type: pure hypercholesterolemia Time Spent (min) 24 Assessment & Plan Assessment & Plan (1) Diabetes mellitus, without long-term current use of insulin: Code(s): E11.9 - Type 2 diabetes mellitus without complications Category: Medical Qualifiers: Diabetes mellitus type: type 2 Diabetes mellitus complication status: with hyperglycemia Qualified Code(s): E11.65 - Type 2 diabetes mellitus with hyperglycemia (2) Dementia: Code(s): F03.90 - Unspecified dementia, unspecified severity, without behavioral disturbance, psychotic disturbance, mood disturbance, and anxiety Category: Medical Qualifiers: Dementia type: Alzheimer's Alzheimer's disease onset: early onset Dementia severity: mild Dementia behavioral or psychological symptom: without behavioral, psychotic, or mood disturbance or anxiety Qualified Code(s): G30.0 - Alzheimer's disease with early onset; F02.A0 - Dementia in other diseases classified elsewhere, mild, without behavioral disturbance, psychotic disturbance, mood disturbance, and anxiety (3) Mild recurrent major depression: Code(s): F33.0 - Major depressive disorder, recurrent, mild Category: Medical (4) HTN (hypertension): Code(s): I10 - Essential (primary) hypertension Category: Medical Qualifiers: Hypertension type: essential hypertension Qualified Code(s): I10 - Essential (primary) hypertension (5) Hyperlipidemia: Code(s): E78.5 - Hyperlipidemia, unspecified Category: Medical Qualifiers: Hyperlipidemia type: pure hypercholesterolemia Qualified Code(s): E78.00 - Pure hypercholesterolemia, unspecified Plan - Ensure medication adherence by considering options such as a medication dispenser to prevent errors in administration. - Continue monitoring and controlling blood sugar as diabetes management is effective. - Schedule follow-up for diabetic retinopathy to monitor progression or resolution. - Discuss managing Alzheimer's disease, including ensuring safety at home and continuing family support. - Monitor and control hypertension with Losartan; ensure patient takes medication as prescribed. Patient was informed and verbally consented to the use of an ambient scribe for clinic note documentation during this visit. I discussed the importance of medication adherence with the patient and his family, emphasizing the potential benefit of using a medication dispenser for managing his regimen. I advised continuing the current diabetes management strategy as it is effective, with good control of blood sugar levels. The patient's recent weight gain was noted, and I advised diet and possible medication adjustments pending further monitoring. We also discussed the need for regular follow-ups for diabetic retinopathy and Alzheimer's disease, ensuring that the family is prepared to assist. I highlighted the importance of maintaining blood pressure control and discussed continuing Losartan for hypertension. No additional medications were added at this time, and the patient was informed about potential side effects of current medications, such as dizziness or sleepiness. Orders: Orders Influenza [id number] Immunization Today Z23 - Encounter for immunization Lipid Panel Today E78.5 - Hyperlipidemia, unspecified Vitamin D 25-OH Total Today E55.9 - Vitamin D deficiency, unspecified IRON PROFILE Today D64.9 - Anemia, unspecified AMB Hemoglobin A1c Today E11.65 - Type 2 diabetes mellitus with hyperglycemia Pneumococcal 20 Immunization Today Z23 - Encounter for immunization Complete Blood Count Auto Diff Today D64.9 - Anemia, unspecified Microalbumin, Random (w Creat) Today R80.9 - Proteinuria, unspecified Vitamin B12 and Folate Today E53.8 - Deficiency of other specified B group vitamins Comprehensive [place]. Panel Fast Today E11.65 - Type 2 diabetes mellitus with hyperglycemia Medications: New atorvastatin 80 mg PO DAILY 90 tabs 1RF 90 days Discontinued donepezil Discontinued Reason: Patient no longer taking 10 mg PO BEDTIME 90 days 90 tabs 1RF F03.90 - Unspecified dementia, unspecified severity, without behavioral disturbance, psychotic disturbance, mood disturbance, and anxiety Patient Instructions: - Use a medication dispenser to take medications at the right times. - Continue current diabetes treatment plans; monitor blood sugar regularly. - Follow a balanced diet to manage weight. - Keep track of blood pressure and take Losartan as prescribed. - Schedule follow-ups for diabetic eye exams and memory care. - Report any significant changes to vision or worsening cognitive symptoms.
== END 2024-10-13 11:05 | disposition home or self-care (01) ==
PROVIDERS: PCP Internal Medicine; Visit Provider Internal Medicine
DX: E11.65 Type 2 diabetes mellitus with hyperglycemia (principal); G30.0 Alzheimer's disease with early onset; F02.A0 Dementia in other diseases classified elsewhere, mild, without behavioral disturbance, psychotic disturbance, mood disturbance, and anxiety; F33.0 Major depressive disorder, recurrent, mild; I10 Essential (primary) hypertension; E78.00 Pure hypercholesterolemia, unspecified; Z23 Encounter for immunization

== ENCOUNTER → 2024-10-13 10:00 | Outpatient (BNVA) | payer MEDICARE, MEDICAID, SELFPAY | PROVIDERS: PCP Internal Medicine; Visit Provider Internal Medicine | DX: Z23 Encounter for immunization (principal); E11.65 Type 2 diabetes mellitus with hyperglycemia; G30.0 Alzheimer's disease with early onset; F02.A0 Dementia in other diseases classified elsewhere, mild, without behavioral disturbance, psychotic disturbance, mood disturbance, and anxiety; F33.0 Major depressive disorder, recurrent, mild; I10 Essential (primary) hypertension; E78.00 Pure hypercholesterolemia, unspecified | CPT/HCPCS: 83036; 90471; 90656; 90677; 99212 ==

== ENCOUNTER 2024-10-18 07:51 | Outpatient (REF) | payer MEDICARE, MEDICAID, SELFPAY ==
[2024-10-18 08:14] LABS: MANUAL DIFF FLAG NO
[2024-10-18 08:35] LABS: Basophils Percent Auto 0.8 % (0-2); Eosinophils Absolute Auto 0.1 X10*3/uL (0.0-0.4); Hematocrit 47.4 % (42.0-52.0); Hemoglobin 15.3 g/dl (14.0-18.0); Imm Gran Abs Auto 0.01 X10*3/uL (0.00-0.03); Imm Gran Pct Auto 0.2 % (0.0-0.4); Lymphocytes Absolute Auto 1.5 X10*3/uL (1.2-4.9); Lymphocytes Percent Auto 29.4 % (20-40); Mean Corpuscular HGB Conc 32.3 g/dl (31.0-36.0); Mean Corpuscular Hemoglobin 31.2 pg (27.0-33.0); Mean Corpuscular Volume 96.7 fL (80.0-98.0); Mean Platelet Volume 10.3 fL (9.4-12.4); Monocytes Absolute Auto 0.6 X10*3/uL (0.1-1.2); Monocytes Percent Auto 12.1 % (2-11); Neutrophils Absolute Auto 2.8 x10*3/uL (2.0-8.3); Neutrophils Percent Auto 55.5 % (45-73); Platelet Count 226 X10*3/uL (160-400); Red Cell Distribution Width 12.2 % (11.0-16.0)
[2024-10-18 09:02] LABS: Alanine Aminotransferase 23 U/L (0-40); Albumin Level 3.9 g/dL (3.5-5.0); Alkaline Phosphatase 76 U/L (39-117); Anion Gap 10 (12-20); Aspartate Amino Transferase 18 U/L (5-37); Bilirubin Total 0.3 mg/dL (0.0-1.0); Blood Urea Nitrogen 10 mg/dL (9-16); Calcium 8.5 mg/dL (8.4-10.2); Carbon Dioxide 30 mmol/L (22-29); Chloride 106 mmol/L (96-108); Cholesterol 146 mg/dL (<200); Estimated Glomerular Filt Rate > 60; Glucose Fasting 122 mg/dL (60-99); HDL Cholesterol 39 mg/dL (>40); Iron 104 mcg/dL (45-160); LDL Cholesterol Calculated 76 mg/dL (<100); Percent Iron Saturation 39 % (15-50); Potassium 4.4 mmol/L (3.3-5.1); Sodium 142 mmol/L (135-145); Total Iron Binding Capacity 265 mcg/dL (228-428); Total Protein 7.1 g/dL (6.5-8.0); Triglycerides 157 mg/dL (<150); Unsaturated Iron Binding 161 ug/dL
[2024-10-18 09:18] LABS: Vitamin D 25-OH Total 22.6 ng/mL (>30)
[2024-10-18 09:22] LABS: Appearance Urine Clear; Color Urine Yellow; Glucose Urine UA >=1000 mg/dL (Negative)
[2024-10-18 09:23] LABS: Thyroid Stimulating Hormone 1.63 uIU/mL (0.32-4.0)
[2024-10-18 09:23] LABS: Leukocyte Esterase Urine Negative (Negative); Nitrite Urine Negative (Negative); Specific Gravity - Urine > 1.030 (1.005-1.025); UMIC TRIGGER UA YES; Urine Blood Negative (Negative); Urine Ketones Trace mg/dL (Negative); Urine Protein Negative (Neg-Trace)
[2024-10-18 09:37] LABS: Creatinine Urine 90.65 mg/dL; Creatinine Urine 91.51 mg/dL; Microalbum/Creatinine Ratio Ur 13.2 ug/mg cr (<30); Total Protein Urine Random 11 mg/dL (<12)
[2024-10-18 09:39] LABS: Bacteria Urine None Seen (None Seen); Calcium Oxalate Crystals Urine Present; Hyaline Casts Urine 0-2 /LPF (0-2); RBC Urine 0-2 /HPF (0-2); Squamous Epithelial Cell Urine 0-2 /HPF (0-2); WBC Urine 0-5 /HPF (0-5)
[2024-10-18 09:40] LABS: Folate 3.6 ng/mL (> or = 4.0); Vitamin B12 < 148 pg/mL (200-900)
== END 2024-10-18 07:52 | disposition home or self-care (01) ==
LOC: HO.LAB 07:51
PROVIDERS: Absent Provider Internal Medicine Hypertension Specialist; PCP Internal Medicine; Visit Provider Internal Medicine
DX: I10 Essential (primary) hypertension (principal); R80.9 Proteinuria, unspecified; E78.5 Hyperlipidemia, unspecified; R41.0 Disorientation, unspecified; E11.9 Type 2 diabetes mellitus without complications; E11.65 Type 2 diabetes mellitus with hyperglycemia; Z79.4 Long term (current) use of insulin; E55.9 Vitamin D deficiency, unspecified; D64.9 Anemia, unspecified; E53.8 Deficiency of other specified B group vitamins
CPT/HCPCS: 36415; 80053; 80061; 81001; 81003; 82043; 82306; 82570; 82607; 82746; 83540; 84156; 84443; 85025; 99212

== ENCOUNTER 2024-10-18 09:24 | Outpatient (AMB) | payer MEDICARE, MEDICAID, SELFPAY ==
[2024-10-18 09:49] VITALS: BP 124/62; PULSE 76; O2SAT 94; BMI 32.9
--- NOTE | 2024-10-18 09:49 | HO.NEPHOV_ITS ---
Vital Signs 10/18/24 09:49 Height 5 ft 3 in Weight 186 lb BMI 32.9 BP 124/62 Blood Pressure Location Lt brachial Position Sitting Pulse 76 Pulse Source Pulse Oximeter Pulse Oximetry (%) 94 Oxygen Delivery Method Room Air Intake Visit Reasons: Proteinuria/ Conf Inside Sales Account Representative Required: No Accompanied by: Son Allergies enalapril [ENALAPRIL] Allergy (Unknown, Verified 10/18/24 09:52) UNKNOWN lisinopril Allergy (Unknown, Verified 10/18/24 09:52) UNKNOWN Anesthetics - Amide Type - Select A Adverse Reaction (Severe, Verified 10/18/24 09:52) loss of consciousness Medication List - Last Reconciled 10/18/24 by Adan Farah MD atorvastatin 80 mg PO DAILY 90 days blood sugar diagnostic (FreeStyle Lite Strips) As directed three times a day blood-glucose meter (FreeStyle Lite Meter kit) As directed 3x/day cholecalciferol (vitamin D3) 50 mcg PO DAILY [Diabetic shoes As directed] empagliflozin (Jardiance) 10 mg PO DAILY 90 days lancets (FreeStyle Lancets) Three times a day lancets As directed losartan 50 mg PO DAILY 90 days memantine 14 mg PO DAILY 30 days metformin 1,000 mg PO BID 90 days paroxetine HCl (Paxil) 30 mg PO DAILY 90 days pen needle, diabetic (Comfort EZ Pen [place]) Use 1 pen needle once a day semaglutide (Ozempic) 1 mg (0.75 mL) subcut QWEEK 4 weeks HPI Comments Details: Nathen is a pleasant 69-year-old man referred for proteinuria. He was accompanied by son was able to translate. Nathen who has history of diabetes mellitus for more than 10 years in the setting of obesity. His renal function has been stable with a serum creatinine 0.8. Recent urine protein creatinine ratio was elevated at 583. There has been a gradual increase in the urine protein excretion over the last few years.Acute kidney injury due to compromised renal perfusion He is currently on losartan 100 mg Recently diagnosed with dementia. He has a history obstructive sleep apnea but does not use CPAP. 04/21/24: Doing well. No new issues On JArdiace. Accompanied by son 10/18/24 On Ozempic Lost 12 lbs over 5 months NO new issues [facility] Medical History Type 2 diabetes mellitus, with long-term current use of insulin Diabetes mellitus, with long-term current use of insulin Hearing loss Encounter for Medicare annual wellness exam Mild recurrent major depression Morbid obesity with BMI of 40.0-44.9, adult Type 2 diabetes mellitus with diabetic polyneuropathy Former smoker Lumbar radiculopathy Proteinuria Retinopathy Hyperlipidemia Obesity due to excess calories Depression with anxiety Pure hypercholesterolemia Type 2 diabetes mellitus with other diabetic kidney complication Surgical History History of surgery History of cataract surgery Family History Father No problems noted. Mother No problems noted. Social History Household Members: None Housing: Apartment Alcohol intake: former Patient Tobacco Use Status: Former Tobacco user Years Smoked: 20 years e-Cigarette/Vaping Use: Never Used Second Hand Smoke Exposure: No service: No Current occupational status: disabled Cognitive needs: No Hearing needs: Yes Vision needs: Yes Physical Exam Vital Signs: Last Vital Signs Pulse 76 10/18/24 09:49 BP 124/62 10/18/24 09:49 Pulse Ox 94 10/18/24 09:49 Oxygen Delivery Method Room Air 10/18/24 09:49 BMI result Body Mass Index 32.9 Const General: comfortable; No acute distress Orientation/consciousness: patient oriented x3 Eyes General: appearance normal, both eyes and all related structures Visual Rhodes: normal visual rhodes by confrontation Neck Neck: Yes supple and Yes no JVD Resp Effort & Inspection: normal respiratory effort and respiratory effort not de creased Auscultation: rhonchi Cardio Palpation: no palpable S3 and no palpable S4 Heart sounds: no rubs GI Inspection: Yes normal to inspection Palpation (GI): Soft to palpation Percussion: Yes normal to percussion Auscultation: normal bowel sounds General: Yes no CVA tenderness Back/Spine/Pelvis Back: no CVA tenderness Skin General skin exam: no petechiae and no purpura Neuro General: patient oriented x3 and no focal motor deficits Extrem General: No clubbing and No edema Results Reviewed Nephrology Results: Hgb 15.3 g/dl (14.0-18.0) 10/18/24 WBC 5.0 X10*3/uL (4.8-10.8) 10/18/24 Plt Count 226 X10*3/uL (160-400) 10/18/24 Sodium 142 mmol/L (135-145) 10/18/24 Potassium 4.4 mmol/L (3.3-5.1) 10/18/24 Chloride 106 mmol/L (96-108) 10/18/24 Carbon Dioxide 30 mmol/L (22-29) H 10/18/24 BUN 10 mg/dL (9-16) 10/18/24 Creatinine 0.73 mg/dL (0.5-1.4) 10/18/24 Calcium 8.5 mg/dL (8.4-10.2) 10/18/24 Urine Protein Negative mg/dL (Neg-Trace) 10/18/24 Urine Creatinine 91.51 mg/dL 10/18/24 Assessment & Plan Assessment & Plan (1) HTN (hypertension): Code(s): I10 - Essential (primary) hypertension Category: Medical Qualifiers: Hypertension type: essential hypertension Qualified Code(s): I10 - Essential (primary) hypertension (2) Diabetes mellitus, without long-term current use of insulin: Code(s): E11.9 - Type 2 diabetes mellitus without complications Category: Medical Qualifiers: Diabetes mellitus complication status: with hyperglycemia Diabetes mellitus type: type 2 Qualified Code(s): E11.65 - Type 2 diabetes mellitus with hyperglycemia (3) Proteinuria: Code(s): R80.9 - Proteinuria, unspecified Category: Medical Qualifiers: Proteinuria type: unspecified Qualified Code(s): R80.9 - Proteinuria, unspecified (4) Microalbuminuria: Code(s): R80.9 - Proteinuria, unspecified Category: Medical Plan . Elderly man with longstanding history of diabetes mellitus and obesity with obstructive sleep apnea has non nephrotic proteinuria. Proteinuria is most likely due to underlying diabetic kidney disease. Obesity the could be a contributing factor in the proteinuria. Other nondiabetic causes seem unlikely At this point renal function stable. Urine sediments are bland. The goal is to slow the progression of renal disease. Blood sugar needs to optimize hemoglobin A1c should be maintained less than 7%. Recent A1c was 12.1%. He needs weight loss. Currently he is on Ozempic and he is lost 10 lb over the last few months. He will benefit from SGLT2 inhibitors. Agree with ROYAL inhibition. Continue with losartan 100 mg and monitor urine protein excretion. Renal function is stable. Shall monitor renal function as well Orders: Orders Basic Metabolic Panel 6 Months I10 - Essential (primary) hypertension, R80.9 - Proteinuria, unspecified UA and rflx microscopic 6 Months I10 - Essential (primary) hypertension, R80.9 - Proteinuria, unspecified Total Protein Urine Random 6 Months I10 - Essential (primary) hypertension, R80.9 - Proteinuria, unspecified Creatinine Urine 6 Months I10 - Essential (primary) hypertension, R80.9 - Proteinuria, unspecified Coding Level of Care Code Est Pt Level 4 (42124) Diagnoses Essential hypertension I10 Hypertension type: essential hypertension Type 2 diabetes mellitus with hyperglycemia, without long-term current use of insulin E11.65 Diabetes mellitus complication status: with hyperglycemia Diabetes mellitus type: type 2 Proteinuria, unspecified type R80.9 Proteinuria type: unspecified Microalbuminuria R80.9
== END 2024-10-18 10:01 | disposition home or self-care (01) ==
PROVIDERS: PCP Internal Medicine; Visit Provider Internal Medicine Hypertension Specialist
DX: I10 Essential (primary) hypertension (principal); E11.65 Type 2 diabetes mellitus with hyperglycemia; R80.9 Proteinuria, unspecified
CPT/HCPCS: 99214

== ENCOUNTER 2025-02-27 07:58 | Outpatient (AMB) | payer MEDICARE, MEDICAID, SELFPAY ==
--- OUTSIDE RECORDS SUMMARY | 2025-02-27 08:04 | XMS_ITS | Clinical Summary ---
Author Organization [employer] [facility] Address [address] [place] [address] Care Team Providers Care Population Health Manager Name Role Phone Unavailable Primary Care Provider Unavailabl e Allergies Active Allergy Reactions Criticality Noted Date Comments Anesthetics, Amide 08/20/2021 Enalapril 08/20/2021 Lisinopril 08/20/2021 Medications amLODIPine (Norvasc) 10 MG tablet 02/28/2023 Active atorvastatin (Lipitor) 40 MG tablet 02/28/2023 Active Lantus 100 UNIT/ML injection 02/18/2023 Active losartan-hydroCHLO ROthiazide (Hyzaar) 100-12.5 MG tablet 02/28/2023 Active metFORMIN XR (Glucophage-XR) 500 MG 24 hr tablet 03/05/2023 Active PARoxetine (Paxil) 30 MG tablet 03/05/2023 Active Active Problems Problem Noted Date Diagnosed Date Dental abscess 03/12/2023 Dental calculus 03/09/2023 Dental caries 03/09/2023 Severe generalized gingival recession 03/09/2023 Periodontal disease 02/17/2023 Social History Tobacco Use Types Packs/Day Years Used Date Smoking Tobacco: Never Passive Smoke Exposure: Never Smokeless Tobacco: Never Tobacco Cessation:Counseling Given: Not Answered Alcohol Use Standard Drinks/Week Comments Never 0 (1 standard drink = 0.6 oz pur e alcohol) Sex and Gender Information Value Date Recorded Sex Assigned at Male 09/01/2022 10:36 AM EDT Legal Sex Male 10:36 AM EDT Gender Identity Male 01/07/2023 8:24 AM EST Sexual Orientation Choose not to disclose 2022 8:31 AM EDT Sexual Orientation Straight 02/17/2023 8: 31 AM EDT Last Filed Vital Signs Vital Sign Reading Time Taken Comments Blood Pressure 142/80 04/13/2023 10:43 AM EDT Pulse 74 04/13/2023 10:43 AM EDT Temperature - - Respiratory Rate - - Oxygen Saturation - - Inhaled Oxygen Concentration - - Weight - - Height - - Body Mass Index - - Plan of Treatment Health Maintenance Due Date Last Done Comments CT Colonography 1953 Colonoscopy 1953 Colorectal Cancer Screening 1953 Depression Screening 1953 FIT DNA/Cologuard 1953 FIT 1953 FOBT 1953 Lipid Panel 1953 SDOH Screening 1953 Sigmoidoscopy 1953 Alcohol/Substance Use Screening 1965 Hepatitis C Screening 1971 DTaP/Tdap/Td Vaccines (1 - Tdap) 01/09/1972 Zoster Vaccines (1 of 2) 2003 Pneumococcal Vaccine: 50+ Years (2 of 2 - PPSV23) 05/03/2019 05/03/2018 Dental Oral Exam 08/20/2023 02/17/2023 Dental Prophylaxis 09/10/2023 03/09/2023 Dental X-Ray: Bitewings 02/19/2024 02/17/2023 Tobacco Screening 04/13/2024 04/13/2023 COVID-19 Vaccine ( season) 2024 11/05/2021, 02/13/2021, 01/16/2021 Influenza Vaccine (#1) 2024 , 08/17/2021, 06/29/2020, Additional history exists Dental X-Ray: Full Mouth 02/18/2026 02/17/2023 RSV Patients and Patients Aged 60 years or older (1 - 1-dose 75+ series) 01/09/2028 HIB Vaccines Aged Out No longer eligi ble based on patient's age to complete this topic HPV Vaccines Aged Out No longer eligi ble based on patient's age to complete this topic Hepatitis A Vaccines Aged Out No long er eligible based on patient's age to complete this topic Hepatitis B Vaccines Aged Out No long er eligible based on patient's age to complete this topic IPV Vaccines Aged Out No longer eligi ble based on patient's age to complete this topic Meningococcal Vaccine Aged Out No cirilo jose luis eligible based on patient's age to complete this topic RSV under 20 months Aged Out No longe r eligible based on patient's age to complete this topic Rotavirus Vaccines Aged Out No longer eligible based on patient's age to complete this topic Procedures Procedure Name Priority Date/Time Associated Diagnosis Comments PROPHYLAXIS - ADULT Routine 03/09/2023 8 :00 AM EDT Periodontal disease Dental calculus INTRAORAL - COMPLETE SERIES OF RADIOGRAPHIC IMAGES Routine 02/17/2023 8:30 AM EDT PERIODIC ORAL EVALUATION - ESTABLISHED PATIENT Routine 02/17/2023 8:30 AM EDT from Last 3 Months or Most Recently Relevant to Health Maintenance Insurance [facility] MEDICAID STAND ADULT
--- OUTSIDE RECORDS SUMMARY | 2025-02-27 08:04 | XMS_ITS | Encounter Summary ---
Author Organization [employer] [facility] Address [address] [place] [address] Care Team Providers Care Technical Maintenance Specialist Name Role Phone Unavailable Primary Care Provider Unavailabl e Encounter Details Date Type Department Care Team (Late st Contact Info) Description 03/13/2023 Abstract [facility] [address] [place] [address] Becky, Mulu [address] [place] [address] Social History Tobacco Use Types Packs/Day Years Used Date Smoking Tobacco: Never Passive Smoke Exposure: Never Smokeless Tobacco: Never Alcohol Use Standard Drinks/Week Comments Never 0 (1 standard drink = 0.6 oz pur e alcohol) Sex and Gender Information Value Date Recorded Sex Assigned at Male 09/01/2022 10:36 AM EDT Legal Sex Male 10:36 AM EDT Gender Identity Male 01/07/2023 8:24 AM EST Sexual Orientation Choose not to disclose 2022 8:31 AM EDT Sexual Orientation Straight 02/17/2023 8: 31 AM EDT COVID-19 Exposure Response Date Recorded In the last 10 days, have yo u been in contact with someone who was confirmed or suspected to have Coronavirus/COVID-19? No / Unsure 03/12/2023 12:16 PM EDT documented as of this encounter Plan of Treatment Not on file documented as of this encounter Visit Diagnoses Not on filedocumented in this encounter
--- OUTSIDE RECORDS SUMMARY | 2025-02-27 08:04 | XMS_ITS | Encounter Summary ---
Author Organization [employer] [facility] Address [address] [place] [address] Care Team Providers Care Vice President Payer Name Role Phone Unavailable Primary Care Provider Unavailabl e Encounter Details Date Type Department Care Team (Late st Contact Info) Description 03/31/2023 Abstract [facility] ADULT [facility] [address] [place] [address] Becky, Mulu [address] [place] [address] Social History Tobacco Use Types Packs/Day Years [...]
--- OUTSIDE RECORDS SUMMARY | 2025-02-27 08:04 | XMS_ITS | Clinical Summary ---
Author Organization [facility] Address [address] [address] Care Team Providers Care Global Commodity Manager Name Role Phone Radha Tello MD Primary Care Provider Allergies Active Allergy Reactions Criticality Noted Date Comments Anesthetics, Amide 08/20/2021 Enalapril 08/20/2021 Lisinopril 08/20/2021 Medications atorvastatin (LIPITOR) 40 MG tablet Take 40 mg by mouth 1 (one) time each day 05/18/2021 Active Trulicity 1.5 MG/0.5ML solution pen-injector Inject 1 mL under the skin 1 (one) time per week 06/03/2021 Active Lantus 100 UNIT/ML injection Inject 1 mL under the skin 06/11/2021 Active losartan-hydroC HLOROthiazide (HYZAAR) 100-12.5 MG per tablet Take 1 tablet by mouth 1 (one) time each day 05/18/2021 Active metFORMIN XR (GLUCOPHAGE-XR) 500 MG 24 hr tablet Take 1,000 mg by mouth 2 (two) times a day 06/14/2021 Active amLODIPine (NORVASC) 10 MG tablet Take 10 mg by mouth 1 (one) time each day Active PARoxetine (PAXIL) 30 MG tablet Take 30 mg by mouth 1 (one) time each day in the morning Active Active Problems Problem Noted Date Diagnosed Date Depressive disorder 08/20/2021 Hyperlipidemia 08/20/2021 Obesity 08/20/2021 Proteinuria 08/20/2021 Type 2 diabetes mellitus 08/20/2021 Obstructive sleep apnea syndrome 08/20/2021 Lumbar radiculopathy 08/20/2021 Social History Tobacco Use Types Packs/Day Years Used Date Smoking Tobacco: Never Assessed Sex and Gender Information Value Date Recorded Sex Assigned at Not on file Legal Sex Male 11:30 AM EDT Gender Identity Not on file Sexual Orientation Not on file Plan of Treatment Health Maintenance Due Date Last Done Comments Colorectal Cancer Screening: Annual FOBT 2002 Colorectal Cancer Screening: Colonoscopy 2002 Colorectal Cancer Screening: Sigmoidoscopy 2002 Pneumococcal Vaccine: 50+ Ye ars (1 of 1 - PCV) 2003 Diabetes: Hemoglobin A1C 08/20/2021 Diabetes: Ophthalmology Exam 08/20/2021 Diabetes: Pedal Pulse Checked 08/20/2021 Diabetes: Sensory Foot Exam 08/20/2021 Diabetes: Visual Foot Exam 08/20/2021 Influenza Vaccine (Season Ended) 2025 Hepatitis B Vaccine Aged Out No longe r eligible based on patient's age to complete this topic Insurance Medicare Medicaid [place] Care Teams Global Commodity Manager Relationship Specialty Start Date End Date Radha Tello MD [address] [place] [address] PCP - General Internal Medicine 06/21/21
--- OUTSIDE RECORDS SUMMARY | 2025-02-27 08:04 | XMS_ITS | Encounter Summary ---
Author Organization [employer] [facility] Address [address] [place] [address] Care Team Providers Care Coin Wrapping Machine Operator Name Role Phone Unavailable Primary Care Provider Unavailabl e Encounter Details Date Type Department Care Team (Latest Contact Info) Description 09/28/2019 Abstract [facility] Dental, Provider, DDS Social History Tobacco Use Types Packs/Day Years Used Date Smoking Tobacco: Never Assessed Sex and Gender Information Value Date Recorded Sex Assigned at Male 09/01/2022 10:36 AM EDT Legal Sex Male 10:36 AM EDT Gender Identity Male 01/07/2023 8:24 AM EST Sexual Orientation Choose not to disclose 2022 8:31 AM EDT Sexual Orientation Straight 02/17/2023 8: 31 AM EDT documented as of this encounter Plan of Treatment Not on file documented as of this encounter Visit Diagnoses Not on filedocumented in this encounter
--- NOTE | 2025-02-27 08:12 | AM.OFFVISMDC ---
Intake Vital Signs 02/27/25 08:15 Height 5 ft 3 in Weight 192 lb BMI 34.0 BP 126/72 Blood Pressure Location Lt brachial Position Sitting Intake Visit Reasons: awv Intake Note: Patient here for annual wellness visit Farm Consultant Required: No Accompanied by: Self / Same As Patient Allergies enalapril [ENALAPRIL] Allergy (Unknown, Verified 02/27/25 08:26) UNKNOWN lisinopril Allergy (Unknown, Verified 02/27/25 08:26) UNKNOWN Anesthetics - Amide Type - Select A Adverse Reaction (Severe, Verified 02/27/25 08:26) loss of consciousness Medication List - Last Reconciled 02/27/25 by Radha Thakur MD atorvastatin 80 mg PO DAILY 90 days blood sugar diagnostic (FreeStyle Lite Strips) As directed three times a day blood-glucose meter (FreeStyle Lite Meter kit) As directed 3x/day cholecalciferol (vitamin D3) 50 mcg PO DAILY cyanocobalamin (vitamin B-12) 1,000 mcg IM Q4W 4 weeks [Diabetic shoes As directed] empagliflozin (Jardiance) 10 mg PO DAILY 90 days insulin syringe-needle U-100 (BD Insulin Syringe) As directed lancets (FreeStyle Lancets) Three times a day lancets As directed losartan 50 mg PO DAILY 90 days memantine 28 mg PO DAILY 30 days metformin 1,000 mg PO BID 90 days paroxetine HCl (Paxil) 30 mg PO DAILY 90 days pen needle, diabetic (Comfort EZ Pen [place]) Use 1 pen needle once a day semaglutide (Ozempic) 1 mg (0.75 mL) subcut QWEEK 4 weeks HPI HPI Comments History of Present Illness Details The patient is a 70-year-old male presenting for a Medicare Wellness Exam. He has Type 2 Diabetes Mellitus with an A1c of 8.2, currently exhibiting poor glycemic control. He demonstrates cognitive impairment, as evidenced by difficulty with basic orientation questions. His diabetes management includes Jardiance with a planned increase in dosage, and Ozempic for which he awaits a refill. There are no recent issues reported with hypertension; however, his hyperlipidemia is notable as he is not currently treated with atorvastatin. [facility] handed to patient. [place] of care reviewed and updated. Dementia is follow by Neurology. His past medical history includes cognitive impairment potentially linked to low Vitamin B12, but he has not received injections at the pharmacy as planned. His medications are managed by his healthcare proxy due to an incident of misuse and memory issues, with primary management including Losartan for hypertension and paroxetine for mild depression. The patient's social setting involves oversight by his healthcare proxy due to past incidents of wandering and poor self-management. - Discussed Tdap vaccine availability; advised obtaining at a pharmacy - Diabetes management with A1c monitoring showing a level of 8.2 - Vitamin B12 injection advised monthly but not confirmed as received; blood work planned for four months - Regular monitoring of hypertension with currently good blood pressure - Depression treatment ongoing with paroxetine [facility] Medical History (Updated 02/27/25 @ 10:57 by Radha Thakur MD) Type 2 diabetes mellitus, with long-term current use of insulin Diabetes mellitus, with long-term current use of insulin Hearing loss Encounter for Medicare annual wellness exam Mild recurrent major depression Morbid obesity with BMI of 40.0-44.9, adult Type 2 diabetes mellitus with diabetic polyneuropathy Former smoker Lumbar radiculopathy Proteinuria Retinopathy Hyperlipidemia Obesity due to excess calories Depression with anxiety Pure hypercholesterolemia Type 2 diabetes mellitus with other diabetic kidney complication Surgical History History of surgery History of cataract surgery Family History Father No problems noted. Mother No problems noted. Social History Household Members: None Housing: Apartment Alcohol intake: former Patient Tobacco Use Status: Former Tobacco user Years Smoked: 20 years e-Cigarette/Vaping Use: Never Used Second Hand Smoke Exposure: No service: No Current occupational status: disabled Cognitive needs: No Hearing needs: Yes Vision needs: Yes Questionnaire Medicare Wellness Checkup [age] What gender do you identify with?: male During the past 4 weeks, how much have you been bothered by emotional problems such as feeling anxious, depressed, irritable, sad or downhearted, and blue?: quite a bit During the past 4 weeks, has your physical & emotional health limited your social activities with family, friends, neighbors, or groups?: slightly During the past 4 weeks, how much bodily pain have you generally had?: no pain During the past 4 weeks, was someone available to help you if you needed & wanted help?: yes, as much as I wanted During the past 4 weeks, what was the hardest physical activity you could do for at least 2 minutes?: moderate Can you get to places out of walking distance without help? (For eg., can you travel alone on buses, taxis or drive your car?): No Can you go shopping for groceries or clothes without someone's help?: No Can you prepare your own meals?: No Can you do your housework without help?: No Because of any health problems, do you need the help of another person with your personal care needs such as eating, bathing, dressing or getting around the house?: Yes Can you handle your own money without help?: No During the past 4 weeks, how would you rate your health in general?: fair During the past 4 weeks how have things been going for you?: pretty bad Are you having difficulties driving your car?: yes, often Do you always fasten your seat belt when you are in a car?: no During past 4 weeks, have you been bothered by the following: never: Falling or dizzy when standing up, Sexual problems?, Teeth or denture problems? and Tiredness or fatigue?, sometimes: Trouble eating well? and always: Problems using the telephone? Have you fallen 2 or more times in the past year?: No Are you afraid of falling?: No Are you a smoker?: no During the past 4 weeks, how many drinks of wine, beer, or other alcoholic beverages did you have?: no alcohol at all Do you exercise for about 20 minutes 3 or more times a week?: no, I usually do not exercise this much Have you been given information to help with the following?: yes: Hazards in your house that might hurt you? and yes: Keeping track of your medications? How often do you have trouble taking medicines the way you have been told to take them?: sometimes I take medicine as prescribed How confident are you that you can control & manage most of your health problems?: somewhat confident What is your race?: or origin or descent Mini Mental State Exam (MMSE) Orientation What is the (year) (season) (date) (day) (month)?: season Where are we (state) (county) (town or city) (hospital) (floor)?: state, county, town or city, hospital/clinic and floor Registration Name of 3 unrelated objects clearly and slowly, then ask patient to repeat all 3 of them. (1st repeat determines score. Make sure they can repeat all three): object 1, object 2 and object 3 Attention & Calculation (CHOOSE ONE) Spell WORLD backwards (DLROW): 0 letters Language Show patient a wristwatch & ask what it is. Repeat for pencil.: watch and pencil Ask the patient to repeat the phrase 'No ifs, ands, or buts' after you.: correct Ask the patient to 'take a piece of paper with their right hand' 'fold paper in half' 'place paper on floor': take paper in right hand, fold paper in half and place paper on floor Print the sentence 'CLOSE YOUR EYES' on a piece. If patient actually closes eyes then score.: followed written direction Give patient a blank piece of paper & ask to write a sentence. Score if it contains a noun & verb.: sentence contains subject and verb Score Score: 17 Activity of Daily Living Bathing - sponge bath, tub bath or shower: receives no assistance (gets in/out by self, if usual bathing means Dressing - getting clothes from closets & drawers, including inner/outer garments & fasteners.: gets clothes & gets completely dressed without help Toileting - going to the 'toilet room' for urine/bowel elimination & cleaning self/arranging clothes: goes to toilet room, cleans self, arranges clothes without help Transfer: moves in & out of bed and chair without help (may use support object) Continence: controls urination/bowel movements completely by self Feeding: feeds self without help Total Score: 0 Information obtained from: patient Using telephone: independent Traveling: dependent Shopping: dependent Preparing meals: dependent Housework: needs assistance Taking medicine: needs assistance Managing money: dependent PHQ-9 Over the last 2 weeks, how often have you been bothered by any of the following problems? 1. Little interest or pleasure in doing things: more than half the days 2. Feeling down, depressed, or hopeless: more than half the days 3. Trouble falling or staying asleep, or sleeping too much: not at all 4. Feeling tired or having little energy: not at all 5. Poor appetite or overeating: not at all 6. Feeling bad about yourself - or that you are a failure or have let yourself or your family down: not at all 7. Trouble concentrating on things, such as reading the newspaper or watching television: several days 8. Moving or speaking so slowly that other people could have noticed. Or the opposite - being so fidgety or restless that you have been moving around a lot more than usual: several days 9. Thoughts that you would be better off or of hurting yourself in some way: not at all Total score: 6 Depression Screening Interpretation: Positive Depression Screening Follow-up: Existing condition, In treatment and Follow-up Visit Requested Depression Screening Done: Yes 61338 - PHQ-9 Billing: Yes Source: Developed by Drs. Skinny Wallace, Columba Garcia, Elvis Canales and colleagues, with an educational evaristo from [employer]. Fall Risk Assessment Fall Risk Assessment Fall risk assessment: No Falls in past year AUDIT C Alcohol Use Questionnaire (AUDIT-C) 1. How often do you have a drink containing alcohol?: Never Total Score: 0 Score Reviewed/Action Taken: No ROBERT-7 AMB Questionnaire ROBERT-7 Date ROBERT - 7 assessed: 02/27/25 Feeling nervous, anxious, or on edge: 1 = Several days Not being able to stop or control worryin = Not at all Worrying too much about different things: 0 = Not at all Trouble relaxin = Several days Being so restless that it is hard to sit still: 1 = Several days Becoming easily annoyed or irritable: 0 = Not at all Feeling afraid as if something awful might happen: 0 = Not at all Total ROBERT-7 score (0-4 normal; 5-9 mild; 10-14 moderate; 15-21 severe): 3 Source: Developed by Drs. Skinny Wallace, Columba Garcia, Elvis Canales and colleagues, with an educational evaristo from [employer]. ROBERT-7 Assessment Billing ROBERT-7 Assessment Tool: ROBERT-7 Assessment 66351 Thrive Questionnaire Date Thrive assessed: 02/27/25 I am a: Parent/Caregiver What is your living situation today?: I have a steady place to live Within the past 12 months, did the food you bought not last and you didn't have the money to get more?: Never true Within the past 12 months, did you worry whether your food would run out before you got money to buy more?: Never true Do you have trouble paying for medicines?: No Do you have trouble getting transportation to medical appointments?: No Do you have trouble paying your heating and electricity bill?: No Do you have trouble taking care of your child, family member or friend?: No Do you have trouble with day-to-day activities such as bathing, preparing meals, shopping, managing finances, etc.?: Yes Are you currently unemployed and looking for a job?: No Are you interested in more education?: No Please select the resources that you would like help with: None Currently or been in a relationship where the following occur: No concerns reported THRIVE Score: 0 Review of Systems Const All systems reviewed & are unremarkable except as noted in HPI and below Card Denies chest pain at rest, Denies chest pain with activity, Denies edema, Denies irregular heart rhythm, Denies claudication, Denies dyspnea, Denies dyspnea on exertion, Denies orthopnea, Denies paroxysmal nocturnal dyspnea and Denies slow heart rate Resp Denies cough, Denies dyspnea and Denies dyspnea on exertion GI Denies abdominal pain, Denies change in bowel habits, Denies excessive flatus, Denies nausea and Denies vomiting Physical Exam Vital Signs: Last Vital Signs BP 126/72 02/27/25 08:15 BMI result Body Mass Index 34.0 Resp Effort & Inspection: normal respiratory effort Auscultation: clear to auscultation bilaterally Cardio Jugular venous distension: no JVD Rate: regular rate Rhythm: regular rhythm Heart sounds: S1 normal heart sound present and S2 normal heart sound present Neuro Gait exam (Neuro): Normal gait present Romberg Test: Negative Extrem General: Yes full ROM Results AMB Hemoglobin A1c AMB Hemoglobin A1c 8.5 % Last Edit by PÉREZ Torres on 02/27/25 08:27 Results Reviewed Results Reviewed: Laboratory Last Values Hgb A1c (Clinic) 8.5 % (4.0-6.0) H 02/27/25 08:24 Assessment & Plan Assessment & Plan (1) Encounter for Medicare annual wellness exam: Code(s): Z00.00 - Encounter for general adult medical examination without abnormal findings (2) Diabetes mellitus, without long-term current use of insulin: Code(s): E11.9 - Type 2 diabetes mellitus without complications Qualifiers: Diabetes mellitus type: type 2 Diabetes mellitus complication status: with hyperglycemia Qualified Code(s): E11.65 - Type 2 diabetes mellitus with hyperglycemia (3) Dementia: Code(s): F03.90 - Unspecified dementia, unspecified severity, without behavioral disturbance, psychotic disturbance, mood disturbance, and anxiety Qualifiers: Dementia type: Alzheimer's Alzheimer's disease onset: early onset Dementia severity: mild Dementia behavioral or psychological symptom: without behavioral, psychotic, or mood disturbance or anxiety Qualified Code(s): G30.0 - Alzheimer's disease with early onset; F02.A0 - Dementia in other diseases classified elsewhere, mild, without behavioral disturbance, psychotic disturbance, mood disturbance, and anxiety (4) Mild recurrent major depression: Code(s): F33.0 - Major depressive disorder, recurrent, mild Plan The patient's Type 2 Diabetes Mellitus requires close management and an increase in Jardiance dosage is planned. Ozempic will be refilled and monitoring for glucose control is crucial. Losartan remains effective for hypertension. To address hyperlipidemia, atorvastatin treatment should be reconsidered. deficiency is a concern, prompting blood work ordering to evaluate levels and potentially indicative memory issues. His family dynamics and social situation may lead to possible relocation, aimed at optimizing support systems. Continued paroxetine use addresses his mild depression. Completing health care proxy documentation is essential, and Tdap vaccination is recommended at a pharmacy. Patient was informed and verbally consented to the use of an ambient scribe for clinic note documentation during this visit. During the discussion, I emphasized the importance of controlling the patient's diabetes, hypertension, and depression. He was advised of the need to refill Ozempic and increase Jardiance dosage to 25 mg, with close monitoring of A1c in subsequent visits. We discussed the necessity of assessing Vitamin B12 levels due to its impact on cognitive function. Considerations for atorvastatin for lipid control were made. I provided information on obtaining a Tdap vaccine at the pharmacy. We addressed discussing future arrangements with family for better support and encouraged completing healthcare proxy forms to formalize decision-making authority. Orders: Orders Lipid Panel 4 Months E78.5 - Hyperlipidemia, unspecified Microalbumin, Random (w Creat) 4 Months R80.9 - Proteinuria, unspecified Vitamin D 25-OH Total 4 Months E55.9 - Vitamin D deficiency, unspecified Complete Blood Count Auto Diff 4 Months D64.9 - Anemia, unspecified IRON PROFILE 4 Months D64.9 - Anemia, unspecified Parietal Cell Antibody 4 Months D51.9 - Vitamin B12 deficiency anemia, unspecified AMB Hemoglobin A1c Today E11.65 - Type 2 diabetes mellitus with hyperglycemia Vitamin B12 and Folate 4 Months E53.8 - Deficiency of other specified B group vitamins Comprehensive [place]. Panel Fast 4 Months E11.65 - Type 2 diabetes mellitus with hyperglycemia Intrinsic Factor Antibodies 4 Months D51.9 - Vitamin B12 deficiency anemia, unspecified Medications: New empagliflozin (Jardiance) 25 mg PO DAILY 90 tabs 1RF 90 days Changed From insulin syringe-needle U-100 (BD Insulin Syringe) As directed 1 ea 11RF D51.9 - Vitamin B12 deficiency anemia, unspecified To insulin syringe-needle U-100 As directed 1 ea 11RF D51.9 - Vitamin B12 deficiency anemia, unspecified Refilled cyanocobalamin (vitamin B-12) 1,000 mcg IM Q4W 1 mL 6RF 4 weeks metformin 1,000 mg PO BID 180 tabs 1RF 90 days semaglutide (Ozempic) 1 mg (0.75 mL) subcut QWEEK 3 mL 0RF 4 weeks losartan 50 mg PO DAILY 90 tabs 1RF 90 days paroxetine HCl (Paxil) 30 mg PO DAILY 90 tabs 1RF 90 days F41.1 - Generalized anxiety disorder Discontinued empagliflozin (Jardiance) Discontinued Reason: Patient Completed Course 10 mg PO DAILY 90 days 90 tabs 1RF E11.65 - Type 2 diabetes mellitus with hyperglycemia, 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) use of insulin Patient Instructions: - Obtain Tdap vaccine from a pharmacy - Administer prescribed medications as directed, ensuring not to self-manage without assistance - Monitor blood sugar levels closely; anticipate medication adjustments - Comprehensive blood work scheduled in four months, marking calcium, glucose, and Vitamin B12 - Refill Ozempic as needed and follow up on Jardiance dosage increase - Maintain regular consumption of nutritious meals with healthcare proxy assistance - Complete healthcare proxy documentation and return forms - Discuss with family regarding potential relocation for additional support - Schedule follow-up appointments to reassess and adjust the management plan as required Quality Reporting (2019) Adult ([facility] 138/2/69) Smoking risk assessment performed?: Yes Patient Tobacco Use Status: Former Tobacco user Fall Risk Screening ([facility] 139) Fall risk assessment: No Falls in past year Depression/Bipolar (159/160/161/177) PHQ-9: Total score: 6 Coding Level of Care Code Medicare Subsequent (G0439) Diagnoses Encounter for Medicare annual wellness exam Z00.00 Type 2 diabetes mellitus with hyperglycemia, without long-term current use of insulin E11.65 Diabetes mellitus type: type 2 Diabetes mellitus complication status: with hyperglycemia Mild early onset Alzheimer's dementia without behavioral disturbance, psychotic disturbance, mood disturbance, or anxiety G30.0; F02.A0 Dementia type: Alzheimer's Alzheimer's disease onset: early onset Dementia severity: mild Dementia behavioral or psychological symptom: without behavioral, psychotic, or mood disturbance or anxiety Mild recurrent major depression F33.0 CPT Codes Advance Care Planning - Time spent: 1-15 minutes, on File ([id number]) Additional Codes ROBERT-7 Assessment Billing - ROBERT-7 Assessment Tool: ROBERT-7 Assessment 20082 ([id number]) PHQ-9 - 39024 - PHQ-9 Billing: Yes ([id number]) Time Spent (min) 36 Advance Care Planning Advance Care Planning discussion: Exists, not on file Date of discussion: 02/27/25 Who was present: son, patient and me Forms completed: Health Care Proxy Time spent: 1-15 minutes, on File Actual minutes spent: 2
[2025-02-27 08:15] VITALS: BP 126/72; BMI 34.0
== END 2025-02-27 09:10 | disposition home or self-care (01) ==
LOC: HO.HMCH 07:58
PROVIDERS: PCP Internal Medicine; Visit Provider Internal Medicine
DX: Z00.00 Encounter for general adult medical examination without abnormal findings (principal); E11.65 Type 2 diabetes mellitus with hyperglycemia; G30.0 Alzheimer's disease with early onset; F02.A0 Dementia in other diseases classified elsewhere, mild, without behavioral disturbance, psychotic disturbance, mood disturbance, and anxiety; F33.0 Major depressive disorder, recurrent, mild

== ENCOUNTER → 2025-02-27 07:58 | Outpatient (BNVA) | payer MEDICARE, MEDICAID, SELFPAY | PROVIDERS: PCP Internal Medicine; Visit Provider Internal Medicine | DX: Z00.00 Encounter for general adult medical examination without abnormal findings (principal); E11.65 Type 2 diabetes mellitus with hyperglycemia; G30.0 Alzheimer's disease with early onset; F02.A0 Dementia in other diseases classified elsewhere, mild, without behavioral disturbance, psychotic disturbance, mood disturbance, and anxiety; F33.0 Major depressive disorder, recurrent, mild | CPT/HCPCS: 83036; 96127 ==

== ENCOUNTER 2025-03-13 08:32 | Outpatient (REF) | payer MEDICARE, MEDICAID, SELFPAY ==
--- OUTSIDE RECORDS SUMMARY | 2025-03-13 08:38 | XMS_ITS | Encounter Summary ---
Author Organization [employer] [facility] Address [address] [place] [address] Care Team Providers Care Metal Bonding Press Operator Name Role Phone Unavailable Primary Care Provider Unavailabl e Encounter Details Date Type Department Care Team (Late st Contact Info) Description 03/13/2023 Abstract [facility] ADULT [facility] [address] [place] [address] Becky, Mulu [address] [place] [address] Social History Tobacco Use Types Packs/Day Years [...]
--- OUTSIDE RECORDS SUMMARY | 2025-03-13 08:38 | XMS_ITS | Encounter Summary ---
Author Organization [employer] [facility] Address [address] [place] [address] Care Team Providers Care Care Assistant Name Role Phone Unavailable Primary Care Provider Unavailabl e Encounter Details Date Type Department Care Team (Latest Contact Info) Description 09/28/2019 Abstract C CONVERSIONS Dental, Provider, DDS Social History Tobacco [...]
--- OUTSIDE RECORDS SUMMARY | 2025-03-13 08:38 | XMS_ITS | Clinical Summary ---
Author Organization [employer] [facility] Address [address] [place] [address] Care Team Providers Care Blender Name Role Phone Unavailable Primary Care Provider [...] Most Recently Relevant to Health Maintenance Insurance [facility] MEDICAID STAND ADULT
--- OUTSIDE RECORDS SUMMARY | 2025-03-13 08:38 | XMS_ITS | Clinical Summary ---
Author Organization [facility] Address [address] [address] Care Team Providers Care Specialty Sales Representative Name Role Phone Radha Tello MD Primary Care Provider [phone] Allergies Active Allergy Reactions Criticality Noted Date [...] Medicaid [place] Care Teams Specialty Sales Representative Relationship Specialty Start Date End Date Radha Tello MD [address] [place] [address] PCP - General Internal Medicine 06/21/21
--- OUTSIDE RECORDS SUMMARY | 2025-03-13 08:38 | XMS_ITS | Encounter Summary ---
Author Organization [employer] [facility] Address [address] [place] [address] Care Team Providers Care Pharmacology Associate Name Role Phone Unavailable Primary Care Provider Unavailabl e Encounter Details Date Type Department Care Team (Late st Contact Info) Description 03/31/2023 Abstract [facility] [address] [place] [address] Becky, Mulu [address] [place] [address] Social History Tobacco Use Types Packs/Day Years [...]
[2025-03-13 09:48] LABS: Appearance Urine Clear; Color Urine Yellow; Glucose Urine UA >=1000 mg/dL (Negative); Leukocyte Esterase Urine Negative (Negative); Nitrite Urine Negative (Negative); PH 5.5 (5.0-9.0); Specific Gravity - Urine >= 1.030 (1.005-1.025); UMIC TRIGGER UA YES; Urine Blood Negative (Negative); Urine Ketones Negative (Negative); Urine Protein Negative (Neg-Trace)
[2025-03-13 09:57] LABS: Anion Gap 10 (12-20); Blood Urea Nitrogen 10 mg/dL (9-16); Calcium 9.2 mg/dL (8.4-10.2); Carbon Dioxide 27 mmol/L (22-29); Chloride 109 mmol/L (96-108); Estimated Glomerular Filt Rate > 60; Glucose Random 151 mg/dL (60-115); Potassium 4.3 mmol/L (3.3-5.1); Sodium 142 mmol/L (135-145)
[2025-03-13 10:02] LABS: Bacteria Urine None Seen (None Seen); Hyaline Casts Urine 0-2 /LPF (0-2); RBC Urine 0-2 /HPF (0-2); Squamous Epithelial Cell Urine 0-2 /HPF (0-2); WBC Urine 0-5 /HPF (0-5)
[2025-03-13 10:39] LABS: Creatinine Urine 96.79 mg/dL; Total Protein Urine Random 9 mg/dL (<12)
== END 2025-03-13 08:33 | disposition home or self-care (01) ==
LOC: HO.LAB 08:32
PROVIDERS: PCP Internal Medicine; Visit Provider Internal Medicine Hypertension Specialist
DX: I10 Essential (primary) hypertension (principal); R80.9 Proteinuria, unspecified
CPT/HCPCS: 36415; 80048; 81001; 82570; 84156

== ENCOUNTER 2025-03-14 09:08 | Outpatient (AMB) | payer MEDICARE, MEDICAID, SELFPAY ==
[2025-03-14 09:36] VITALS: BP 110/56; PULSE 70; O2SAT 95; BMI 34.0
--- NOTE | 2025-03-14 09:36 | HO.NEPHOV_ITS ---
Vital Signs 03/14/25 09:36 Height 5 ft 3 in Weight 192 lb BMI 34.0 BP 110/56 L Blood Pressure Location Rt brachial Position Sitting Pulse 70 Pulse Source Pulse Oximeter Pulse Oximetry (%) 95 Oxygen Delivery Method Room Air Intake Visit Reasons: Proteinuria/ Conf Pipeline Superintendent Required: No Pipeline Superintendent Services: Pipeline Superintendent Offered & Declined (Son will translate) Accompanied by: Son Allergies enalapril [ENALAPRIL] Allergy (Unknown, Verified 03/14/25 09:39) UNKNOWN lisinopril Allergy (Unknown, Verified 03/14/25 09:39) UNKNOWN Anesthetics - Amide Type - Select A Adverse Reaction (Severe, Verified 03/14/25 09:39) loss of consciousness Medication List - Last Reconciled 03/14/25 by Adan Farah MD atorvastatin 80 mg PO DAILY 90 days blood sugar diagnostic (FreeStyle Lite Strips) As directed three times a day blood-glucose meter (FreeStyle Lite Meter kit) As directed 3x/day cholecalciferol (vitamin D3) 50 mcg PO DAILY cyanocobalamin (vitamin B-12) 1,000 mcg IM Q4W 4 weeks [Diabetic shoes As directed] empagliflozin (Jardiance) 25 mg PO DAILY 90 days insulin syringe-needle U-100 As directed lancets (FreeStyle Lancets) Three times a day lancets As directed losartan 50 mg PO DAILY 90 days memantine 28 mg PO DAILY 30 days metformin 1,000 mg PO BID 90 days paroxetine HCl (Paxil) 30 mg PO DAILY 90 days pen needle, diabetic (Comfort EZ [employer]) Use 1 pen needle once a day semaglutide (Ozempic) 1 mg (0.75 mL) subcut QWEEK 4 weeks HPI Comments Details: Nathen is a pleasant 70-year-old man referred for proteinuria. He was accompanied by son was able to translate. Nathen who has history of diabetes mellitus for more than 10 years in the setting of obesity. His renal function has been stable with a serum creatinine 0.8. Recent urine protein creatinine ratio was elevated at 583. There has been a gradual increase in the urine protein excretion over the last few years.Acute kidney injury due to compromised renal perfusion He is currently on losartan 100 mg Recently diagnosed with dementia. He has a history obstructive sleep apnea but does not use CPAP. 04/21/24: Doing well. No new issues On JArdiace. Accompanied by son 10/18/24 On Ozempic Lost 12 lbs over 5 months NO new issues 03/14/25 70-year-old male presenting with follow-up for proteinuria and impaired kidney function. The ongoing management includes the use of Ozempic, which initially facilitated weight loss. However, the patient has recently experienced weight gain, which may influence kidney function. Dietary modifications have been implemented, with an emphasis on low-sugar content in meals, managed by the patient's cook house supervisor. Current lab results, although not detailed, are part of the ongoing evaluation of his renal function. Medication adherence is overseen actively by his caregiver. [facility] Medical History Type 2 diabetes mellitus, with long-term current use of insulin Diabetes mellitus, with long-term current use of insulin Hearing loss Encounter for Medicare annual wellness exam Mild recurrent major depression Morbid obesity with BMI of 40.0-44.9, adult Type 2 diabetes mellitus with diabetic polyneuropathy Former smoker Lumbar radiculopathy Proteinuria Retinopathy Hyperlipidemia Obesity due to excess calories Depression with anxiety Pure hypercholesterolemia Type 2 diabetes mellitus with other diabetic kidney complication Surgical History History of surgery History of cataract surgery Family History Father No problems noted. Mother No problems noted. Social History Household Members: None Housing: Apartment Alcohol intake: former Patient Tobacco Use Status: Former Tobacco user Years Smoked: 20 years e-Cigarette/Vaping Use: Never Used Second Hand Smoke Exposure: No service: No Current occupational status: disabled Cognitive needs: No Hearing needs: Yes Vision needs: Yes Physical Exam Vital Signs: Last Vital Signs Pulse 70 03/14/25 09:36 BP 110/56 L 03/14/25 09:36 Pulse Ox 95 03/14/25 09:36 Oxygen Delivery Method Room Air 03/14/25 09:36 BMI result Body Mass Index 34.0 Results Reviewed Nephrology Results: Hgb 15.3 g/dl (14.0-18.0) 10/18/24 WBC 5.0 X10*3/uL (4.8-10.8) 10/18/24 Plt Count 226 X10*3/uL (160-400) 10/18/24 Sodium 142 mmol/L (135-145) 03/13/25 Potassium 4.3 mmol/L (3.3-5.1) 03/13/25 Chloride 109 mmol/L (96-108) H 03/13/25 Carbon Dioxide 27 mmol/L (22-29) 03/13/25 BUN 10 mg/dL (9-16) 03/13/25 Creatinine 0.73 mg/dL (0.5-1.4) 03/13/25 Calcium 9.2 mg/dL (8.4-10.2) 03/13/25 Urine Protein Negative mg/dL (Neg-Trace) 03/13/25 Urine Creatinine 96.79 mg/dL 03/13/25 Assessment & Plan Assessment & Plan (1) Microalbuminuria: Code(s): R80.9 - Proteinuria, unspecified Category: Medical Plan The patient's management plan for proteinuria and impaired kidney function includes continuation of his current treatment regimen with Ozempic and dietary modifications focused on low-sugar intake. Ongoing monitoring of kidney function and adherence to prescribed medications are emphasized, coordinated by the patient's caregiver. The patient's weight management and proteinuria require consistent assessment, with return evaluation scheduled in six months. Medication refills will continue to be managed by his caregiver as needed. Orders: Orders Basic Metabolic Panel 6 Months R80.9 - Proteinuria, unspecified Total Protein Urine Random Today R80.9 - Proteinuria, unspecified Creatinine Urine Today R80.9 - Proteinuria, unspecified UA and rflx microscopic Today R80.9 - Proteinuria, unspecified Coding Level of Care Code Est Pt Level 4 (26189) Diagnoses Microalbuminuria R80.9
--- OUTSIDE RECORDS SUMMARY | 2025-03-14 09:38 | XMS_ITS | Encounter Summary ---
Author Organization [facility] Address [address] [place] [address] Care Team Providers Care Hoop Riveting Machine Operator Name Role Phone Unavailable Primary [...]
--- OUTSIDE RECORDS SUMMARY | 2025-03-14 09:38 | XMS_ITS | Clinical Summary ---
Author Organization [employer] [facility] Address [address] [place] [address] Care Team Providers Care Brass Finisher Name Role Phone Unavailable Primary Care Provider [...] Most Recently Relevant to Health Maintenance Insurance [facility] STAND ADULT
--- OUTSIDE RECORDS SUMMARY | 2025-03-14 09:38 | XMS_ITS | Encounter Summary ---
Author Organization [employer] [facility] Address [address] [place] [address] Care Team Providers Care Financial Systems Director Name Role Phone Unavailable Primary Care Provider Unavailabl e Encounter Details Date Type Department Care Team (Late st Contact Info) Description 03/31/[address] [facility] ADULT DENTAL [address] [place] [address] Becky, Mulu [address] [place] [address] Social History Tobacco Use Types Packs/Day Years [...]
--- OUTSIDE RECORDS SUMMARY | 2025-03-14 09:38 | XMS_ITS | Encounter Summary ---
Author Organization [employer] [facility] Address [address] [place] [address] Care Team Providers Care Auto Former Machine Operator Name Role Phone Unavailable Primary Care Provider Unavailabl e Encounter Details Date Type Department Care Team (Late st Contact Info) Description 03/13/2023 Abstract [facility] ADULT DENTAL [address] [place] [address] Becky, Mulu [address] [place] [address] Social History Tobacco Use Types Packs/Day Years [...]
--- OUTSIDE RECORDS SUMMARY | 2025-03-14 09:38 | XMS_ITS | Clinical Summary ---
Author Organization [facility] Address [address] [address] Care Team Providers Care Oracle Identity Management Consultant Name Role Phone Radha Tello MD Primary Care Provider [phone] Allergies Active Allergy Reactions Criticality Noted Date [...] Medicaid [place] Medicare Medicaid [place] Care Teams Oracle Identity Management Consultant Relationship Specialty Start Date End Date Radha Tello MD [address] [place] [address] PCP - General Internal Medicine 06/21/21
== END 2025-03-14 09:50 | disposition home or self-care (01) ==
LOC: HO.HKA 09:09
PROVIDERS: PCP Internal Medicine; Visit Provider Internal Medicine Hypertension Specialist
DX: R80.9 Proteinuria, unspecified (principal)
CPT/HCPCS: 99214

== ENCOUNTER → 2025-03-14 09:08 | Outpatient (BNVA) | payer MEDICARE, MEDICAID, SELFPAY | PROVIDERS: PCP Internal Medicine; Visit Provider Internal Medicine Hypertension Specialist | DX: R80.9 Proteinuria, unspecified (principal) | CPT/HCPCS: 99212 ==

== ENCOUNTER 2025-03-28 09:04 | Outpatient (AMB) | payer MEDICARE, MEDICAID, SELFPAY ==
--- NOTE | 2025-03-28 09:27 | MHC.OFFVIS ---
Vital Signs 03/28/25 09:28 Height 5 ft 3 in Weight 187 lb BMI 33.1 BP 124/70 Blood Pressure Location Rt brachial Position Sitting Pulse 67 Pulse Source Pulse Oximeter Pulse Oximetry (%) 97 Oxygen Delivery Method Room Air Intake Visit Reasons: 6mo F/U Intake Note: Patient presents 6 month follow up for cognitive. Signal And Communications Maintainer Required: No Signal And Communications Maintainer Name: Son translated Accompanied by: Son Allergies enalapril [ENALAPRIL] Allergy (Unknown, Verified 03/28/25 09:35) UNKNOWN lisinopril Allergy (Unknown, Verified 03/28/25 09:35) UNKNOWN Anesthetics - Amide Type - Select A Adverse Reaction (Severe, Verified 03/28/25 09:35) loss of consciousness Medication List - Last Reconciled 03/28/25 by CARLITA Lopez atorvastatin 80 mg PO DAILY 90 days blood sugar diagnostic (FreeStyle Lite Strips) As directed three times a day blood-glucose meter (FreeStyle Lite Meter kit) As directed 3x/day cholecalciferol (vitamin D3) 50 mcg PO DAILY cyanocobalamin (vitamin B-12) 1,000 mcg IM Q4W 4 weeks [Diabetic shoes As directed] empagliflozin (Jardiance) 25 mg PO DAILY 90 days insulin syringe-needle U-100 As directed lancets (FreeStyle Lancets) Three times a day lancets As directed losartan 50 mg PO DAILY 90 days memantine 28 mg PO DAILY 30 days metformin 1,000 mg PO BID 90 days paroxetine HCl (Paxil) 30 mg PO DAILY 90 days pen needle, diabetic (Comfort EZ [employer]) Use 1 pen needle once a day semaglutide (Ozempic) 1 mg (0.75 mL) subcut QWEEK 4 weeks HPI Comments Details: Right-handed 70-yr-old male presents for f/u of cognitive difficulties. Pt is accompanied by his son. Patient's son reports that patient was started on vitamin B12 injection approximately a month ago due to new onset vitamin B12 deficiency. Patient has some stated was not completely sure how to administer the B12 injection properly. Interval labs were also notable for low folic acid level and low vitamin-D level. Patient continues on vitamin-D supplement. Patient's son states patient has not been on a folic acid supplement. Patient has started memantine, and increase dose up to 28 mg per day without difficulty. Pt reports he is doing well. Pt's son reports pt's cognitive difficulties are worsening. For instance, pt is calling his son many x's a day stating that his son has not fed him. He is throwing out things in the house, which he does not know why hey are there. He is forgetting that he has eaten. Continues to have episodes of repeating himself, misplacing items. Son is monitoring pt via live stream video- pt was unplugging the cameras, so son installed device to prevent pt from unplugging the camera. Pt now unplugs any device rather than shutting it off- this is not his baseline. Son notes that pt does not remember things he has done, and becomes agitated when confronted by these things. He lives alone in senior housing apartment. Son now helps with meal prep, finances, and grocery shopping. He now has a ENVIRONMENTAL SAMPLER who is helping w/ laundry. No usual unsafe behaviors. Pt reports he is sleeping well. Pt endorses occasional back pain, occasional GI upset. Denies anorexia, lightheadedness. 10/18/24 02/27/25 03/13/25 08:12 08:24 08:55 WBC 5.0 RBC 4.90 Hgb 15.3 Hct 47.4 MCV 96.7 MCH 31.2 Plt Count 226 D Sodium 142 Potassium 4.3 Chloride 109 H Carbon Dioxide 27 Anion Gap 10 L BUN 10 Creatinine 0.73 Random Glucose 151 H Fasting Glucose 122 H Hgb A1c (Clinic) 8.5 H Calcium 9.2 D Iron 104 TIBC 265 % Saturation 39 Unsat Iron Binding 161 Total Bilirubin 0.3 AST 18 ALT 23 Alkaline Phosphatase 76 Total Protein 7.1 Albumin 3.9 Triglycerides 157 H Cholesterol 146 LDL Cholesterol, Calc 76 HDL Cholesterol 39 L Vitamin B12 < 148 L 25-OH Vitamin D Total 22.6 L Folate 3.6 L TSH 1.63 [facility] Medical History Type 2 diabetes mellitus, with long-term current use of insulin Diabetes mellitus, with long-term current use of insulin Hearing loss Encounter for Medicare annual wellness exam Mild recurrent major depression Morbid obesity with BMI of 40.0-44.9, adult Type 2 diabetes mellitus with diabetic polyneuropathy Former smoker Lumbar radiculopathy Proteinuria Retinopathy Hyperlipidemia Obesity due to excess calories Depression with anxiety Pure hypercholesterolemia Type 2 diabetes mellitus with other diabetic kidney complication Surgical History History of surgery History of cataract surgery Family History Father No problems noted. Mother No problems noted. Social History Household Members: None Housing: Apartment Alcohol intake: former Patient Tobacco Use Status: Former Tobacco user Years Smoked: 20 years e-Cigarette/Vaping Use: Never Used Second Hand Smoke Exposure: No service: No Current occupational status: disabled Cognitive needs: No Hearing needs: Yes Vision needs: Yes Physical Exam Vital Signs: Last Vital Signs Pulse 67 03/28/25 09:28 BP 124/70 03/28/25 09:28 Pulse Ox 97 03/28/25 09:28 Oxygen Delivery Method Room Air 03/28/25 09:28 BMI result Body Mass Index 33.1 Const General: cooperative and no acute distress Resp Effort & Inspection: normal respiratory effort and able to speak in complete sentences Neuro Other: Alert, responsive, with mild confabulation. Patient is able to correctly state that we are in a health clinic, in [place]. Patient is unable to state the date, month, day of week, year or season. Patient incorrectly states we are in [place], the president is Sk[place]. General: CN's II-XI intact bilaterally Gait exam (Neuro): Normal gait present Motor exam (neuro): 5/5 motor strength present throughout Psych Appearance: grossly normal Speech and movement: Normal speech and movement present Affect: normal affect Attitude: cooperative Assessment & Plan Assessment & Plan (1) Dementia: Code(s): F03.90 - Unspecified dementia, unspecified severity, without behavioral disturbance, psychotic disturbance, mood disturbance, and anxiety Category: Medical Qualifiers: Alzheimer's disease onset: early onset Dementia behavioral or psychological symptom: without behavioral, psychotic, or mood disturbance or anxiety Dementia severity: mild Dementia type: Alzheimer's Qualified Code(s): G30.0 - Alzheimer's disease with early onset; F02.A0 - Dementia in other diseases classified elsewhere, mild, without behavioral disturbance, psychotic disturbance, mood disturbance, and anxiety (2) Cognitive impairment: Code(s): R41.89 - Other symptoms and signs involving cognitive functions and awareness Category: Medical (3) ZACH (obstructive sleep apnea): Code(s): G47.33 - Obstructive sleep apnea (adult) (pediatric) Category: Medical Plan Reviewed interval labs, notable for vitamin B12, folic acid, and D deficiency. Continue vitamin B12 supplement as ordered by PCP- offered to make BN a referral for B12 injection training, patient's last son declined at this time. Simple caregiver education given on IM injection training. Continue vitamin-D supplement. Start folic acid 400 mg daily. Patient has declined f/u sleep study. Will monitor. Continue Donepazil 10mg qd. Continue Memantine ER 28mg daily. Discussed that patient is having increased cognitive symptoms, this may improve with supplementation of vitamin B12 and folic acid. However, likely patient will require increased supervision as his cognitive dysfunction progresses. Discussed that patient may benefit from attending a day program, there are some in the area that focus on [place] speakers, information shared on [employer] Son encouraged to look at the Alzheimer's website for caregiver education/support. Pt to follow-up in 6 months or sooner prn. Medications: New folic acid 400 mcg PO DAILY 30 tabs 6RF 30 days E53.8 - Deficiency of other specified B group vitamins Coding Level of Care Code Est Pt Level 4 (08023) Diagnoses Mild early onset Alzheimer's dementia without behavioral disturbance, psychotic disturbance, mood disturbance, or anxiety G30.0; F02.A0 Alzheimer's disease onset: early onset Dementia behavioral or psychological symptom: without behavioral, psychotic, or mood disturbance or anxiety Dementia severity: mild Dementia type: Alzheimer's Cognitive impairment R41.89 ZACH (obstructive sleep apnea) G47.33
[2025-03-28 09:28] VITALS: BP 124/70; PULSE 67; O2SAT 97; BMI 33.1
--- OUTSIDE RECORDS SUMMARY | 2025-03-28 09:34 | XMS_ITS | Encounter Summary ---
Author Organization [employer] [facility] Address [address] [place] [address] Care Team Providers Care Line Supervisor Name Role Phone Unavailable Primary Care Provider Unavailabl e Encounter Details Date Type Department Care Team (Late st Contact Info) Description 03/31/2023 Abstract [facility] ADULT DENTAL [address] [place] [address] Becky, Mulu [address] [place] [address] Social History Tobacco Use Types Packs/Day Years [...]
== END 2025-03-28 10:38 | disposition home or self-care (01) ==
LOC: HO.HSMS 09:05
PROVIDERS: PCP Internal Medicine; Visit Provider Nurse Practitioner Family
DX: G30.0 Alzheimer's disease with early onset (principal); F02.A0 Dementia in other diseases classified elsewhere, mild, without behavioral disturbance, psychotic disturbance, mood disturbance, and anxiety; R41.89 Other symptoms and signs involving cognitive functions and awareness; G47.33 Obstructive sleep apnea (adult) (pediatric)
CPT/HCPCS: 99214

== ENCOUNTER → 2025-03-28 09:04 | Outpatient (BNVA) | payer MEDICARE, MEDICAID, SELFPAY | PROVIDERS: PCP Internal Medicine; Visit Provider Nurse Practitioner Family | DX: G30.0 Alzheimer's disease with early onset (principal); F02.A0 Dementia in other diseases classified elsewhere, mild, without behavioral disturbance, psychotic disturbance, mood disturbance, and anxiety; R41.89 Other symptoms and signs involving cognitive functions and awareness; G47.33 Obstructive sleep apnea (adult) (pediatric); E53.8 Deficiency of other specified B group vitamins | CPT/HCPCS: 99212 ==

== ENCOUNTER 2025-07-06 09:14 | Outpatient (REF) | payer MEDICARE, MEDICAID, SELFPAY ==
[2025-07-06 09:32] LABS: MANUAL DIFF FLAG NO
--- OUTSIDE RECORDS SUMMARY | 2025-07-06 09:48 | XMS_ITS | Clinical Summary ---
Author Organization [facility] Address [address] [place] [address] Care Team Providers Care Carver Hand Name Role Phone Radha Tello MD Primary Care Provider [phone] Allergies Active Allergy Reactions Criticality Noted Date [...] Diabetes: Visual Foot Exam 08/20/2021 Influenza Vaccine (#1) 2025 Hepatitis B Vaccine Aged Out No longe r eligible based on patient's age to complete this topic Insurance Medicare Medicaid [place] Medicare Medicaid [place] Care Teams Carver Hand Relationship Specialty Start Date End Date Radha Tello MD [address] [place] [address] PCP - General Internal Medicine 06/21/21
--- OUTSIDE RECORDS SUMMARY | 2025-07-06 09:48 | XMS_ITS | Encounter Summary ---
Author Organization [employer] [facility] Address [address] [place] [address] Care Team Providers Care Veterinary Technologist Name Role Phone Unavailable Primary Care Provider Unavailabl e Encounter Details Date Type Department Care Team (Late st Contact Info) Description 03/31/2023 Abstract [facility] ADULT DENTAL [address] [place] [address] Becky, Mulu [address] [place] [address] Social History Tobacco Use Types Packs/Day Years [...]
--- OUTSIDE RECORDS SUMMARY | 2025-07-06 09:48 | XMS_ITS | Clinical Summary ---
Author Organization [employer] [facility] Address [address] [place] [address] Care Team Providers Care Chainsaw Mechanic Name Role Phone Unavailable Primary Care Provider [...] Screening 04/13/2024 04/13/2023 COVID-19 Vaccine ( season) 2025 11/05/2021, 02/13/2021, 01/16/2021 Influenza Vaccine (#1) 2025 , 08/17/2021, 06/29/2020, Additional history exists Dental [...] patient's age to complete this topic Meningococcal B Vaccine Aged Out No l onger eligible based on patient's age to complete [...] Most Recently Relevant to Health Maintenance Insurance [facility] [place] STAND AD[place]
--- OUTSIDE RECORDS SUMMARY | 2025-07-06 09:48 | XMS_ITS | Encounter Summary ---
Author Organization [employer] [facility] Address [address] [place] [address] Care Team Providers Care Drill Press Operator Helper Name Role Phone Unavailable Primary Care Provider Unavailabl e Encounter Details Date Type Department Care Team (Late st Contact Info) Description 03/13/2023 Abstract [facility] ADULT DENTAL [address] [place] [address] Becky, Mulu [address] [place] [address] Social History Tobacco Use Types Packs/Day Years [...]
--- OUTSIDE RECORDS SUMMARY | 2025-07-06 09:48 | XMS_ITS | Encounter Summary ---
Author Organization [employer] [facility] Address [address]t [place] [address] Care Team Providers Care Manager Of Development Name Role Phone Unavailable Primary Care Provider [...]
[2025-07-06 10:29] LABS: Hematocrit 47.6 % (42.0-52.0); Hemoglobin 15.1 g/dl (14.0-18.0); Imm Gran Abs Auto 0.02 X10*3/uL (0.00-0.03); Imm Gran Pct Auto 0.3 % (0.0-0.4); Lymphocytes Absolute Auto 1.6 X10*3/uL (1.2-4.9); Mean Corpuscular HGB Conc 31.7 g/dl (31.0-36.0); Mean Corpuscular Hemoglobin 30.5 pg (27.0-33.0); Mean Corpuscular Volume 96.2 fL (80.0-98.0); NRBC Abs Auto 0.000 X10*3/uL (0.0-0.012); NRBC Pct Auto 0.0 /100WBC (0.0-0.2); Platelet Count 219 X10*3/uL (160-400); Red Blood Count 4.95 X10*6/uL (4.60-5.80); White Blood Count 5.9 X10*3/uL (4.8-10.8)
[2025-07-06 11:17] LABS: Alanine Aminotransferase 21 U/L (0-40); Albumin Level 4.5 g/dL (3.5-5.0); Alkaline Phosphatase 76 U/L (39-117); Anion Gap 17 (12-20); Aspartate Amino Transferase 29 U/L (5-37); Blood Urea Nitrogen 17 mg/dL (9-16); Calcium 9.3 mg/dL (8.4-10.2); Carbon Dioxide 26 mmol/L (22-29); Chloride 106 mmol/L (96-108); Cholesterol 151 mg/dL (<200); Estimated Glomerular Filt Rate > 60; HDL Cholesterol 54 mg/dL (>40); Iron 145 mcg/dL (45-160); Percent Iron Saturation 56 % (15-50); Potassium 4.7 mmol/L (3.3-5.1); Sodium 144 mmol/L (135-145); Total Iron Binding Capacity 258 mcg/dL (228-428); Total Protein 7.8 g/dL (6.5-8.0); Triglycerides 69 mg/dL (<150); Unsaturated Iron Binding 113 ug/dL
[2025-07-06 11:31] LABS: Folate 15.5 ng/mL (> or = 4.0); Vitamin B12 302 pg/mL (200-900)
[2025-07-11 13:42] LABS: Intrinsic Factor Antibodies Negative (Negative)
== END 2025-07-06 09:15 | disposition home or self-care (01) ==
LOC: HO.LAB 09:14
PROVIDERS: PCP Internal Medicine; Visit Provider Internal Medicine
DX: E11.65 Type 2 diabetes mellitus with hyperglycemia (principal); E55.9 Vitamin D deficiency, unspecified; E78.5 Hyperlipidemia, unspecified; D51.9 Vitamin B12 deficiency anemia, unspecified; D64.9 Anemia, unspecified; R80.9 Proteinuria, unspecified
CPT/HCPCS: 36415; 80053; 80061; 82043; 82306; 82570; 82607; 82746; 83516; 83540; 85025; 86340

== ENCOUNTER 2025-07-13 08:03 | Outpatient (AMB) | payer MEDICARE, MEDICAID, SELFPAY ==
[2025-07-13 08:08] VITALS: BP 104/52; PULSE 64; O2SAT 97; BMI 32.8
--- NOTE | 2025-07-13 08:08 | MHC.PC.OV ---
Vital Signs 07/13/25 08:08 Height 5 ft 3 in Weight 185 lb BMI 32.8 BP 104/52 L Blood Pressure Location Lt brachial Position Sitting Pulse 64 Pulse Source Pulse Oximeter Pulse Oximetry (%) 97 Oxygen Delivery Method Room Air Intake Visit Reasons: dm Nonprofit Fundraiser Required: No Accompanied by: Self / Same As Patient Allergies enalapril (ENALAPRIL) Allergy (Unknown, Verified 07/13/25 08:27) UNKNOWN lisinopril Allergy (Unknown, Verified 07/13/25 08:27) UNKNOWN Anesthetics - Amide Type - Select A Adverse Reaction (Severe, Verified 07/13/25 08:27) loss of consciousness Medication List - Last Reconciled 07/13/25 by Radha Thakur MD atorvastatin 80 mg PO DAILY 90 days blood sugar diagnostic (FreeStyle Lite Strips) As directed three times a day blood-glucose meter (FreeStyle Lite Meter kit) As directed 3x/day cyanocobalamin (vitamin B-12) 1,000 mcg IM Q4W 4 weeks [Diabetic shoes As directed] empagliflozin (Jardiance) 25 mg PO DAILY 90 days folic acid 400 mcg PO DAILY 30 days insulin syringe-needle U-100 As directed lancets (FreeStyle Lancets) Three times a day lancets As directed losartan 50 mg PO DAILY 90 days memantine 28 mg PO DAILY 30 days metformin 1,000 mg PO BID 90 days paroxetine HCl (Paxil) 30 mg PO DAILY 90 days pen needle, diabetic (Comfort EZ Pen Sassafras) Use 1 pen needle once a day semaglutide (Ozempic) 1 mg (0.75 mL) subcut QWEEK 4 weeks Tobacco use date assessed: 07/13/25 Fall risk assessment: No Falls in past year Last assessed Fall Risk: 07/13/25 Dental Screening Dental Screen Date: 07/13/25 Did you have a dental visit in the last 12 months?: No Did you have a dental problem in the last 6 months where you did not have access to dental care?: No Was dental information given to patient?: Patient has dentist HPI HPI Comments History of Present Illness Details The patient is a 70-year-old male presenting with management of Type 2 Diabetes Mellitus. His hemoglobin A1c is currently at 8.6%, indicating poor glycemic control. He has been prescribed Metformin 1000 mg twice daily and Ozempic 1 mg, which is planned to be increased to 2 mg. His hypertension is well control with a blood pressure within goal being less than 130/80. Has hyperlipidemia with an LDL close to goal being the goal less than 70. The patient also presents with dementia, for which he is taking Memantine. He has been evaluated by a neurologist and is experiencing cognitive impairment. He is awake, alert and oriented only to person but not to time or place. Accompanied by son which is the liberal arts and humanities chair. Additionally, the patient has a history of depression, managed with Paroxetine 30 mg daily. [facility] Medical History Type 2 diabetes mellitus, with long-term current use of insulin Diabetes mellitus, with long-term current use of insulin Hearing loss Encounter for Medicare annual wellness exam Mild recurrent major depression Morbid obesity with BMI of 40.0-44.9, adult Type 2 diabetes mellitus with diabetic polyneuropathy Former smoker Lumbar radiculopathy Proteinuria Retinopathy Hyperlipidemia Obesity due to excess calories Depression with anxiety Pure hypercholesterolemia Type 2 diabetes mellitus with other diabetic kidney complication Surgical History History of surgery History of cataract surgery Family History Father No problems noted. Mother No problems noted. Social History Household Members: None Housing: Apartment Alcohol intake: former Patient Tobacco Use Status: Former Tobacco user Tobacco use type: Cigarette Years Smoked: 20 years e-Cigarette/Vaping Use: Never Used Second Hand Smoke Exposure: No service: No Current occupational status: disabled Cognitive needs: No Hearing needs: Yes Vision needs: Yes Questionnaire PHQ-9 Over the last 2 weeks, how often have you been bothered by any of the following problems? 1. Little interest or pleasure in doing things: several days 2. Feeling down, depressed, or hopeless: nearly every day 3. Trouble falling or staying asleep, or sleeping too much: nearly every day 4. Feeling tired or having little energy: more than half the days 5. Poor appetite or overeating: not at all 6. Feeling bad about yourself - or that you are a failure or have let yourself or your family down: more than half the days 7. Trouble concentrating on things, such as reading the newspaper or watching television: more than half the days 8. Moving or speaking so slowly that other people could have noticed. Or the opposite - being so fidgety or restless that you have been moving around a lot more than usual: not at all 9. Thoughts that you would be better off or of hurting yourself in some way: more than half the days Total score: 15 Depression Screening Interpretation: Positive (no suicidal thoughts) Depression Screening Follow-up: Existing condition, In treatment and Follow-up Visit Requested Depression Screening Done: Yes 49358 - PHQ-9 Billing: Yes Source: Developed by Drs. Skinny Wallace, Columba Garcia, Elvis Canales and colleagues, with an educational evaristo from [employer]. Thrive Questionnaire Date Thrive assessed: 02/27/25 I am a: Patient What is your living situation today?: I choose not to answer this question Within the past 12 months, did the food you bought not last and you didn't have the money to get more?: Never true Within the past 12 months, did you worry whether your food would run out before you got money to buy more?: Sometimes True Do you have trouble paying for medicines?: No Do you have trouble getting transportation to medical appointments?: No Do you have trouble paying your heating and electricity bill?: No Do you have trouble taking care of your child, family member or friend?: Yes Do you have trouble with day-to-day activities such as bathing, preparing meals, shopping, managing finances, etc.?: Yes Are you currently unemployed and looking for a job?: No Are you interested in more education?: No Please select the resources that you would like help with: None Currently or been in a relationship where the following occur: I choose not to answer THRIVE Score: 1 AUDIT C Alcohol Use Questionnaire (AUDIT-C) 1. How often do you have a drink containing alcohol?: Never 3. How often do you have six or more drinks on one occasion?: Never Total Score: 0 Score Reviewed/Action Taken: No ROBERT-7 AMB Questionnaire ROBERT-7 Date ROBERT - 7 assessed: 02/27/25 Feeling nervous, anxious, or on edge: 2 = More than half the days Not being able to stop or control worryin = More than half the days Worrying too much about different things: 2 = More than half the days Trouble relaxin = More than half the days Being so restless that it is hard to sit still: 2 = More than half the days Becoming easily annoyed or irritable: 2 = More than half the days Feeling afraid as if something awful might happen: 2 = More than half the days Total ROBERT-7 score (0-4 normal; 5-9 mild; 10-14 moderate; 15-21 severe): 14 Source: Developed by Drs. Skinny Wallace, Columba Garcia, Elvis Canales and colleagues, with an educational evaristo from [employer]. ROBERT-7 Assessment Billing ROBERT-7 Assessment Tool: ROBERT-7 Assessment 48140 Review of Systems Const All systems reviewed & are unremarkable except as noted in HPI and below Card Denies chest pain at rest, Denies chest pain with activity, Denies edema, Denies irregular heart rhythm, Denies claudication, Denies dyspnea, Denies dyspnea on exertion, Denies orthopnea, Denies paroxysmal nocturnal dyspnea and Denies slow heart rate Resp Denies cough, Denies dyspnea and Denies dyspnea on exertion Physical exam (Primary Care) Vital Signs: Last Vital Signs Pulse 64 07/13/25 08:08 BP 104/52 L 07/13/25 08:08 Pulse Ox 97 07/13/25 08:08 Oxygen Delivery Method Room Air 07/13/25 08:08 BMI result Body Mass Index 32.8 Tobacco/Smoking Status: Tobacco use Status Tobacco use date assessed 07/13/25 07/13/25 08:12 Patient Tobacco Use Status Former Tobacco user 07/13/25 08:12 Tobacco use type Cigarette 07/13/25 08:12 e-Cigarette/Vaping Use Never Used 07/13/25 08:12 PHQ-9: PHQ-9 Score PHQ-9: Total score 15 07/13/25 08:22 Depression Screening Interpretation: Positive (no suicidal thoughts) Depression Screening Follow-up: Existing condition, In treatment and Follow-up Visit Requested Thrive Assessment: Date of Thrive Assessment Date Thrive assessed 02/27/25 07/13/25 08:12 Currently or been in a relationship where the following occur: I choose not to answer Resp Effort & Inspection: normal respiratory effort Auscultation: clear to auscultation bilaterally Cardio Jugular venous distension: no JVD Rate: regular rate Rhythm: regular rhythm Heart sounds: S1 normal heart sound present and S2 normal heart sound present Extrem General: Yes full ROM Results AMB Hemoglobin A1c AMB Hemoglobin A1c 8.6 % Last Edit by Jailene Hodgson CMA on 07/13/25 08:22 Results Reviewed Results Reviewed: Laboratory Last Values Hgb A1c (Clinic) 8.6 % (4.0-6.0) H 07/13/25 08:06 Coding Level of Care Code Est Pt Level 4 (60983) Complex EM visit Add On G2211 Diagnoses Mild recurrent major depression F33.0 Pure hypercholesterolemia E78.00 Essential hypertension I10 Hypertension type: essential hypertension Type 2 diabetes mellitus with hyperglycemia, without long-term current use of insulin E11.65 Diabetes mellitus type: type 2 Diabetes mellitus complication status: with hyperglycemia Mild early onset Alzheimer's dementia without behavioral disturbance, psychotic disturbance, mood disturbance, or anxiety G30.0; F02.A0 Dementia type: Alzheimer's Alzheimer's disease onset: early onset Dementia severity: mild Dementia behavioral or psychological symptom: without behavioral, psychotic, or mood disturbance or anxiety Additional Codes ROBERT-7 Assessment Billing - ROBERT-7 Assessment Tool: ROBERT-7 Assessment 48881 ([id number]) PHQ-9 - 48479 - PHQ-9 Billing: Yes ([id number]) Time Spent (min) 24 Assessment & Plan Assessment & Plan (1) Mild recurrent major depression: Code(s): F33.0 - Major depressive disorder, recurrent, mild Category: Medical (2) Pure hypercholesterolemia: Code(s): E78.00 - Pure hypercholesterolemia, unspecified Category: Medical (3) HTN (hypertension): Code(s): I10 - Essential (primary) hypertension Category: Medical Qualifiers: Hypertension type: essential hypertension Qualified Code(s): I10 - Essential (primary) hypertension (4) Diabetes mellitus, without long-term current use of insulin: Code(s): E11.9 - Type 2 diabetes mellitus without complications Category: Medical Qualifiers: Diabetes mellitus type: type 2 Diabetes mellitus complication status: with hyperglycemia Qualified Code(s): E11.65 - Type 2 diabetes mellitus with hyperglycemia (5) Dementia: Code(s): F03.90 - Unspecified dementia, unspecified severity, without behavioral disturbance, psychotic disturbance, mood disturbance, and anxiety Category: Medical Qualifiers: Dementia type: Alzheimer's Alzheimer's disease onset: early onset Dementia severity: mild Dementia behavioral or psychological symptom: without behavioral, psychotic, or mood disturbance or anxiety Qualified Code(s): G30.0 - Alzheimer's disease with early onset; F02.A0 - Dementia in other diseases classified elsewhere, mild, without behavioral disturbance, psychotic disturbance, mood disturbance, and anxiety Plan Plan Patient was informed and verbally consented to the use of an ambient scribe for clinic note documentation during this visit. 1. Type 2 diabetes mellitus without complications E11.9 HCC 19 The patient's Type 2 Diabetes Mellitus is currently poorly controlled with a hemoglobin A1c of 8.6%. He is currently on Metformin 1000 mg twice daily and Ozempic 1 mg, which will be increased to 2 mg to improve glycemic control. Referral to endocrinology is planned for further management. 2. Unspecified dementia, unspecified severity, without behavioral disturbance, psychotic disturbance, mood disturbance, and anxiety F03.90 HCC 52 The patient is diagnosed with dementia and is currently managed with Memantine. He is under the care of a neurologist for cognitive impairment. 3. Major depressive disorder, recurrent, mild F33.0 HCC 59 The patient's depression is managed with Paroxetine 30 mg daily. 4. Essential (primary) hypertension I10 Continue losartan. BP goal is less than 130/80. 5. Pure hypercholesterolemia, unspecified E78.00 Continue statins. LDL goal is less than 70. Orders: Orders AMB Hemoglobin A1c Today Z13.9 - Encounter for screening, unspecified Microalbumin, Random (w Creat) 4 Months R80.9 - Proteinuria, unspecified Vitamin D 25-OH Total 4 Months E55.9 - Vitamin D deficiency, unspecified Comprehensive [place]. Panel Fast 4 Months E11.65 - Type 2 diabetes mellitus with hyperglycemia Lipid Panel 4 Months E78.5 - Hyperlipidemia, unspecified Vitamin B12 and Folate 4 Months E53.8 - Deficiency of other specified B group vitamins Referrals Endocrinology Referral E11.65 - Type 2 diabetes mellitus with hyperglycemia Medications: New semaglutide (Ozempic) 2 mg (0.75 mL) subcut QWEEK 3 mL 0RF 4 weeks E11.65 - Type 2 diabetes mellitus with hyperglycemia Discontinued semaglutide (Ozempic) Discontinued Reason: Patient Completed Course 1 mg (0.75 mL) subcut QWEEK 4 weeks 3 mL 0RF
== END 2025-07-13 08:44 | disposition home or self-care (01) ==
LOC: HO.HMCH 08:04
PROVIDERS: PCP Internal Medicine; Visit Provider Internal Medicine
DX: E11.65 Type 2 diabetes mellitus with hyperglycemia (principal); G30.0 Alzheimer's disease with early onset; F02.A0 Dementia in other diseases classified elsewhere, mild, without behavioral disturbance, psychotic disturbance, mood disturbance, and anxiety; F33.0 Major depressive disorder, recurrent, mild; E78.00 Pure hypercholesterolemia, unspecified; I10 Essential (primary) hypertension

== ENCOUNTER → 2025-07-13 08:03 | Outpatient (BNVA) | payer MEDICARE, MEDICAID, SELFPAY | PROVIDERS: PCP Internal Medicine; Visit Provider Internal Medicine | DX: F33.0 Major depressive disorder, recurrent, mild (principal); E78.00 Pure hypercholesterolemia, unspecified; I10 Essential (primary) hypertension; E11.65 Type 2 diabetes mellitus with hyperglycemia; G30.0 Alzheimer's disease with early onset; F02.A0 Dementia in other diseases classified elsewhere, mild, without behavioral disturbance, psychotic disturbance, mood disturbance, and anxiety | CPT/HCPCS: 83036; 96127; 99212 ==

== ENCOUNTER 2025-07-19 08:39 | Outpatient (AMB) | payer MEDICARE, MEDICAID, SELFPAY ==
--- NOTE | 2025-07-19 08:40 | A.OFFVIS_ITS ---
Vital Signs 07/19/25 08:43 Height 5 ft 3 in Weight 185 lb 3.013 oz BMI 32.8 BP 120/70 Blood Pressure Location Rt brachial Position Sitting Pulse 62 Pulse Source Pulse Oximeter Pulse Oximetry (%) 99 Oxygen Delivery Method Room Air Intake Visit Reasons: Type 2 diabetes mellitus with hyperglycemia Intake Note: NEW Patient presents today to establish treatment for Type 2 Diabetes Mellitus: Last Diabetic eye exam was on: 12/2024, [facility] Last Podiatry exam was on: Patient does not see a Manager Trainee Most recent HbA1c: 8.6 , 07/13/2025 Random Glucose: 143 mg/dL Human Resources Trainer Required: Yes Human Resources Trainer Language: Tank Truck Engine Mechanic Services: Human Resources Trainer Offered & Declined Human Resources Trainer Name: DR Landrum Speak Fluent Spanis Accompanied by: Self / Same As Patient Allergies enalapril (ENALAPRIL) Allergy (Unknown, Verified 07/19/25 08:47) UNKNOWN lisinopril Allergy (Unknown, Verified 07/19/25 08:47) UNKNOWN Anesthetics - Amide Type - Select A Adverse Reaction (Severe, Verified 07/19/25 08:47) loss of consciousness HPI Comments Details: HPI: The patient was diagnosed with Type 2 Diabetes Mellitus over five years ago. His management was taken over by his son due to Alzheimer's disease. The caregiver has been monitoring his diet, reducing sugar intake, and overseeing his meals. The patient stopped using insulin two years ago due to fluctuations in blood sugar levels and is now on oral medications and weekly injectable. He has a history of consuming excessive amounts of food, particularly pears, and irregular eating patterns. He has a history of cognitive impairment, which affects his ability to self-manage diabetes. Unfortunately patient is not checking his blood sugars and there is no records of his glucose. He did use CGM in the past but due to his cognitive impairment he pulled it off multiple times. Patient was seen by Ophthalmology and on January this year, and will started to have diabetic retinopathy (by patient's son report, one of the eyes is more affected than the other but he is not receiving injections) Current medications Jardiance 25 mg daily Metformin 1000 mg b.i.d. Ozempic 2 mg subQ weekly (increased around 3 or 4 days ago) Review of Systems: - General: No significant weight loss or gain recently; weight stable around 185 lbs. - Cardiovascular: No palpitations or chest pain - Genitourinary: No frequent urination reported. - Neurological: No tingling or pain in feet. - Skin/Foot: No issues reported Labs Blood glucose in office today 143, fasting per patient's son report 07/13/2025 A1c 8.6, previously 8.5 on January 2025 07/06/2025 Creatinine 0.8 GFR more than 60 Microalbumin less than 5.0 [facility] Medical History Type 2 diabetes mellitus, with long-term current use of insulin Diabetes mellitus, with long-term current use of insulin Hearing loss Encounter for Medicare annual wellness exam Mild recurrent major depression Morbid obesity with BMI of 40.0-44.9, adult Type 2 diabetes mellitus with diabetic polyneuropathy Former smoker Lumbar radiculopathy Proteinuria Retinopathy Hyperlipidemia Obesity due to excess calories Depression with anxiety Pure hypercholesterolemia Type 2 diabetes mellitus with other diabetic kidney complication Surgical History History of surgery History of cataract surgery Family History Father No problems noted. Mother No problems noted. Social History Household Members: None Housing: Apartment Alcohol intake: former Patient Tobacco Use Status: Former Tobacco user Tobacco use type: Cigarette Years Smoked: 20 years e-Cigarette/Vaping Use: Never Used Second Hand Smoke Exposure: No service: No Current occupational status: disabled Cognitive needs: No Hearing needs: Yes Vision needs: Yes Physical Exam Vital Signs: Last Vital Signs Pulse 62 07/19/25 08:43 BP 120/70 07/19/25 08:43 Pulse Ox 99 07/19/25 08:43 Oxygen Delivery Method Room Air 07/19/25 08:43 BMI result Body Mass Index 32.8 Results Reviewed Results Reviewed: Laboratory Last Values Glucose (Clinic) 143 mg/dL (60-115) H 07/19/25 08:50 Assessment & Plan Assessment & Plan (1) Diabetes mellitus, without long-term current use of insulin: Code(s): E11.9 - Type 2 diabetes mellitus without complications Category: Medical Qualifiers: Diabetes mellitus type: type 2 Diabetes mellitus complication status: with hyperglycemia Qualified Code(s): E11.65 - Type 2 diabetes mellitus with hyperglycemia Plan Assessment: Type 2 Diabetes Mellitus with a history of cognitive impairment due to Alzheimer's disease, resulting in challenges with self-management and dietary control. Plan: -Continue lifestyle counseling with a focus on nutrition, and weight management. Caregiver to assist with meal planning and monitoring. -Maintain current oral medications: Jardiance and Metformin. -We will monitor the effects of her recent increase in Ozempic dose, we will consider optimizing Ozempic its maximum dose 2.4 mg if needed. Monitor for any side effects. -Insulin use is avoided due to cognitive impairment and risk of hypoglycemia. Instead, focus on optimizing GLP-1 regimen. -Set realistic A1c goals considering the patient's age and comorbidities to prevent hypoglycemia. Target A1c to be less strict to avoid hypoglycemic events- a reasonable goal will be 8-8.5%. -Educate the caregiver on how to monitor blood glucose levels at home. Consider setting up a patient educator visit to teach proper use of glucometer and interpretation of results. -Conduct annual screening for diabetes complications, including retinal exams and renal function tests. Schedule regular follow-ups every 3 months with endoc rinology. -Encourage the caregiver to ensure the patient adheres to medication schedules, avoids skipping doses, and maintains a balanced diet with portion control. -Recommend regular foot checks to prevent complications. Orders: Referrals Diabetes Education Referral E11.65 - Type 2 diabetes mellitus with hyperglycemia Coding Level of Care Code New Pt Level 4 (99872) Diagnoses Type 2 diabetes mellitus with hyperglycemia, without long-term current use of insulin E11.65 Diabetes mellitus type: type 2 Diabetes mellitus complication status: with hyperglycemia Time Spent (min) 45 Comment Time spent on review of previous records, history, exam, plan and patient education.
[2025-07-19 08:43] VITALS: BP 120/70; PULSE 62; O2SAT 99; BMI 32.8
[2025-07-19 08:57] LABS: Glucose, Whole Blood 143 mg/dL (60-115)
--- OUTSIDE RECORDS SUMMARY | 2025-07-19 10:01 | XMS_ITS | Clinical Summary ---
Author Organization [employer] [facility] Address [address] [place] [address] Care Team Providers Care Bereavement Coordinator Name Role Phone Unavailable Primary Care Provider [...]
--- OUTSIDE RECORDS SUMMARY | 2025-07-19 10:01 | XMS_ITS | Clinical Summary ---
Author Organization [facility] Facility Address [address] [place] [id number] Care Team Providers Care Worldwide Chief Creative Officer Name Role Phone Radha Tello MD Primary Care Provider [phone] Allergies Active Allergy Reactions Criticality Noted Date [...] Medicaid [place] Care Teams Worldwide Chief Creative Officer Relationship Specialty Start Date End Date Radha Tello MD [address] [place] [address] PCP - General Internal Medicine 06/21/21
--- OUTSIDE RECORDS SUMMARY | 2025-07-19 10:01 | XMS_ITS | Encounter Summary ---
Author Organization [employer] [facility] Address [address] [place] [address] Care Team Providers Care Piano Machine Operator Name Role Phone Unavailable Primary [...]
--- OUTSIDE RECORDS SUMMARY | 2025-07-19 10:01 | XMS_ITS | Encounter Summary ---
Author Organization [employer] [facility] Address [address] [place] [address] Care Team Providers Care Bag End Sewer Name Role Phone Unavailable Primary Care Provider Unavailabl e Encounter Details Date Type Department Care Team (Late st Contact Info) Description 03/31/2023 Abstract [facility] [address] [place] [address] Becky, Mulu [address] [place] [address] Social History Tobacco Use Types Packs/Day Years [...]
--- OUTSIDE RECORDS SUMMARY | 2025-07-19 10:01 | XMS_ITS | Encounter Summary ---
Author Organization [employer] [facility] Address [address] [place] [address] Care Team Providers Care Dressed Poultry Grader Name Role Phone Unavailable Primary Care Provider Unavailabl e Encounter Details Date Type Department Care Team (Late st Contact Info) Description 03/13/2023 Abstract [facility] [address] [place] [address] Becky, Mulu [address] [place] [address] Social History Tobacco Use Types Packs/Day Years [...]
== END 2025-07-19 09:27 | disposition home or self-care (01) ==
LOC: HO.ENCR 08:39
PROVIDERS: PCP Internal Medicine; Visit Provider Student in an Organized Health Care Education/Training Program
DX: E11.65 Type 2 diabetes mellitus with hyperglycemia (principal)
CPT/HCPCS: 99204

== ENCOUNTER → 2025-07-19 08:39 | Outpatient (BNVA) | payer MEDICARE, MEDICAID, SELFPAY | PROVIDERS: PCP Internal Medicine; Visit Provider Student in an Organized Health Care Education/Training Program | DX: E11.65 Type 2 diabetes mellitus with hyperglycemia (principal); E11.319 Type 2 diabetes mellitus with unspecified diabetic retinopathy without macular edema; E11.42 Type 2 diabetes mellitus with diabetic polyneuropathy; Z79.85 Long-term (current) use of injectable non-insulin antidiabetic drugs | CPT/HCPCS: 82947; 99202 ==

== ENCOUNTER 2025-09-11 10:12 | Outpatient (AMB) | payer MEDICARE, MEDICAID, SELFPAY ==
--- NOTE | 2025-09-11 11:11 | A.OFFVIS_ITS ---
VS Expanded 09/11/25 11:15 09/18/25 09:08 Height 5 ft 3 in 5 ft 3 in Weight 175 lb 4.28 oz 175 lb BMI 31.0 31.0 Intake Visit Reasons: Type 2 diabetes mellitus with hyperglycemia Allergies enalapril (ENALAPRIL) Allergy (Unknown, Verified 09/14/25 10:22) UNKNOWN lisinopril Allergy (Unknown, Verified 09/14/25 10:22) UNKNOWN Anesthetics - Amide Type - Select A Adverse Reaction (Severe, Verified 09/14/25 10:22) loss of consciousness Nutrition Presentation Details: Patient presents for MNT for type 2 diabetes. Patient has dementia and presents with care provider Patient participates from the [employer] program, and receives lunch and dinner meals 7 days a week. care provider reports patient consumes 100% of these meals. noted patient's weight gradually reducing from 195 lbs in March and now 175 lb in September. Noted that patient is on 2 mg Ozempic which can contribute up to 15% weight loss from initial weight in a period of 6 months. care provider reports that patient consumes coffee all throughout the day and adds sugars breakfast meal typically is in sandwich on whole wheat bread, the sandwich may have eggs and cheese or ham and cheese and has coffee, or cereal with sugar added 2% milk and banana in general care provider reports patient is having good appetite and eats a variety of foods however tends to drink lots of coffee even though water, milk, low sugar juices are available for patient to drink Food frequency fruits: Twice a day dairy: 2 to 3 times a day vegetables: Twice a day (from [employer]) Fish 0 to once a week beverages: Water, coffee, milk, low sugar beverages BS Monitoring Most Recent Diabetes Results: Microalb/Creat Ratio TNP 07/06/25 Cholesterol, (<200) 151 mg/dL 07/06/25 HDL Cholesterol, (>40) 54 mg/dL 07/06/25 Triglycerides, (<150) 69 mg/dL 07/06/25 Creatinine, (0.5-1.4) 0.80 mg/dL 07/06/25 BUN, (9-16) 17 mg/dL H 07/06/25 Sodium, (135-145) 144 mmol/L 07/06/25 Potassium, (3.3-5.1) 4.7 mmol/L 07/06/25 Chloride, (96-108) 106 mmol/L 07/06/25 Carbon Dioxide, (22-29) 26 mmol/L 07/06/25 Calcium, (8.4-10.2) 9.3 mg/dL 07/06/25 AST, (5-37) 29 U/L 07/06/25 ALT, (0-40) 21 U/L 07/06/25 Total Protein, (6.5-8.0) 7.8 g/dL 07/06/25 Albumin, (3.5-5.0) 4.5 g/dL 07/06/25 XBN-Jtjggdu-Kh.Jeor Equation Height: 5 ft 3 in Weight: 175 lb Resting Metabolic Rate: 1443.88 Calculated Activity Level: Mild Activity Calories Needed to Maintain Weight: 1985.34 Diagnosis Nutrition problem #1: altered nutrition labs As related to (etiology) #1: diagnosis As evidenced by (sign/symptom) #1: knowledge deficit of diet ( patient also with dementia) [facility] Medical History Type 2 diabetes mellitus, with long-term current use of insulin Diabetes mellitus, with long-term current use of insulin Hearing loss Encounter for Medicare annual wellness exam Mild recurrent major depression Morbid obesity with BMI of 40.0-44.9, adult Type 2 diabetes mellitus with diabetic polyneuropathy Former smoker Lumbar radiculopathy Proteinuria Retinopathy Hyperlipidemia Obesity due to excess calories Depression with anxiety Pure hypercholesterolemia Type 2 diabetes mellitus with other diabetic kidney complication Surgical History History of surgery History of cataract surgery Family History Father No problems noted. Mother No problems noted. Social History Household Members: None Housing: Apartment Alcohol intake: former Patient Tobacco Use Status: Former Tobacco user Tobacco use type: Cigarette Years Smoked: 20 years e-Cigarette/Vaping Use: Never Used Second Hand Smoke Exposure: No service: No Current occupational status: disabled Cognitive needs: No Hearing needs: Yes Vision needs: Yes Assessment & Plan Assessment & Plan (1) Diabetes mellitus, without long-term current use of insulin: Code(s): E11.9 - Type 2 diabetes mellitus without complications Category: Medical Qualifiers: Diabetes mellitus complication status: with hyperglycemia Diabetes mellitus type: type 2 Qualified Code(s): E11.65 - Type 2 diabetes mellitus with hyperglycemia Plan: current wt: 80 kg ( 09/2025 ) est kcal needs as per MSJ: 2000 est protein needs as per 1 g/kg BW: 80 est fluid needs as per 30 ml/kg BW: 2400 Recommended fiber > 12 g /day and gradually increase up to 25-28 g /day or as tolerated Nutrition topics discussed : Reviewed (R), Pt verbalized understanding (V) , not applicable (N/A) R, : Healthy Plate Method Concept: R, V, N/A: Carbohydrates: food sources of carbohydrates, relationship of carbohydrates to blood glucose, fatty liver GI health. Recommended total amount of carbohydrates per meals and snack. Differences between simple carbohydrates and complex carbohydrates R, V, N/A: Lean protein foods including vegan , vegetarian sources of protein. Benefits of protein (including but not limited to healing, nutritional value , benefits in weight loss, glucose control R, V, N/A: Fats : Source of fats, benefits of fats. Difference between saturated and unsaturated fats. Saturated fats and its contribution to inflammation R, V, N/A: Fiber: food sources and role of fiber in the diet (including but not limited to its role as a prebiotic, benefits in constipation, role in IBS , role in glucose control and cholesterol level) R, : Hydration: role of hydration and prevention of dehydration or over hydration. Foods and water content. Reduce on caffeine/caffeine containing beverages gradually (mix half decaf/half reg coffee, gradually reducing on caffeine , alternate between tea R, V, N/A: Vitamins and Minerals in foods and supplements R, V, N/A: Interpreting food labels, including serving size, macronutrients, vitamins, minerals, allergens, ingredient list , % daily value Patient Instructions: * Choose lower sugar cereals (cheerios, special K , bran flakes ) * Gradually reduce on caffeine Coding Level of Care Code Nutr Indiv Subseq (44044) Diagnoses Type 2 diabetes mellitus with hyperglycemia, without long-term current use of insulin E11.65 Diabetes mellitus complication status: with hyperglycemia Diabetes mellitus type: type 2 Time Spent (min) 30
[2025-09-11 11:15] VITALS: BMI 31.0
--- OUTSIDE RECORDS SUMMARY | 2025-09-11 11:58 | XMS_ITS | Clinical Summary ---
Author Organization [facility] Facility Address [address] [place] [id number] Care Team Providers Care High School Social Studies Teacher Name Role Phone Radha Tello MD Primary Care Provider [phone] Allergies Active Allergy Reactions Criticality Noted Date [...] Medicaid [place] Medicare Medicaid [place] Care Teams High School Social Studies Teacher Relationship Specialty Start Date End Date Radha Tello MD [address] [place] [address] PCP - General Internal Medicine 06/21/21
--- OUTSIDE RECORDS SUMMARY | 2025-09-11 11:58 | XMS_ITS | Clinical Summary ---
Author Organization [employer] [facility] Address [address] [facility] [address] 7[address] [place] [address] Care Team Providers Care Animal Health Technician Name Role Phone Unavailable Primary Care Provider [...]
--- OUTSIDE RECORDS SUMMARY | 2025-09-11 11:58 | XMS_ITS | Encounter Summary ---
Author Organization [employer] [facility] Address [address] [place] [address] Care Team Providers Care Sports Editor Name Role Phone Unavailable Primary Care Provider Unavailabl e Encounter Details Date Type Department Care Team (Late st Contact Info) Description 03/13/2023 Abstract [facility] ADULT DENTAL [address] [place] [address] Becky, Mulu [address] [place] [address] Social History Tobacco Use Types Packs/Day Years [...]
--- OUTSIDE RECORDS SUMMARY | 2025-09-11 11:58 | XMS_ITS | Encounter Summary ---
Author Organization [employer] [facility] Address [address] [facility] 7t [place] [address] Care Team Providers Care Senior Editor Name Role Phone Unavailable Primary Care [...]
--- OUTSIDE RECORDS SUMMARY | 2025-09-11 11:58 | XMS_ITS | Encounter Summary ---
Author Organization [employer] [facility] Address [address] 7[address] [place] [address] Care Team Providers Care Book Cleaner Name Role Phone Unavailable Primary Care Provider Unavailabl e Encounter Details Date Type Department Care Team (Late st Contact Info) Description 03/31/2023 Abstract [facility] ADULT DENTAL [address] [place] [address] Becky, Mulu [address] [place] [address] Social History Tobacco Use Types Packs/Day Years [...]
[2025-09-18 09:08] VITALS: BMI 31.0
== END 2025-09-11 11:55 | disposition home or self-care (01) ==
LOC: HO.ENCR 10:13
PROVIDERS: PCP Internal Medicine; Visit Provider Dietitian, Registered
DX: E11.65 Type 2 diabetes mellitus with hyperglycemia (principal)

== ENCOUNTER → 2025-09-11 10:12 | Outpatient (BNVA) | payer MEDICARE, MEDICAID, SELFPAY | PROVIDERS: PCP Internal Medicine; Visit Provider Dietitian, Registered | DX: E11.42 Type 2 diabetes mellitus with diabetic polyneuropathy (principal); E11.65 Type 2 diabetes mellitus with hyperglycemia; Z79.4 Long term (current) use of insulin | CPT/HCPCS: 97803 ==

== ENCOUNTER 2025-09-14 09:50 | Outpatient (AMB) | payer MEDICARE, MEDICAID, SELFPAY ==
[2025-09-14 10:19] VITALS: BP 130/60; PULSE 76; O2SAT 97; BMI 31.2
--- NOTE | 2025-09-14 10:19 | HO.NEPHOV ---
Vital Signs 09/14/25 10:19 Height 5 ft 3 in Weight 176 lb BMI 31.2 BP 130/60 Blood Pressure Location Rt brachial Position Sitting Pulse 76 Pulse Source Pulse Oximeter Pulse Oximetry (%) 97 Oxygen Delivery Method Room Air Intake Visit Reasons: 6 MO FU Auto Body Mechanic Apprentice Required: No Auto Body Mechanic Apprentice Services: Auto Body Mechanic Apprentice Offered & Declined (Son will translate) Accompanied by: Son Allergies enalapril (ENALAPRIL) Allergy (Unknown, Verified 09/14/25 10:22) UNKNOWN lisinopril Allergy (Unknown, Verified 09/14/25 10:22) UNKNOWN Anesthetics - Amide Type - Select A Adverse Reaction (Severe, Verified 09/14/25 10:22) loss of consciousness Medication List - Last Reconciled 09/14/25 by Adan Farah MD atorvastatin 80 mg PO DAILY 90 days blood sugar diagnostic (FreeStyle Lite Strips) As directed three times a day blood-glucose meter (FreeStyle Lite Meter kit) As directed 3x/day cyanocobalamin (vitamin B-12) 1,000 mcg IM Q4W 4 weeks [Diabetic shoes As directed] empagliflozin (Jardiance) 25 mg PO DAILY 90 days folic acid 400 mcg PO DAILY 30 days insulin syringe-needle U-100 As directed lancets (FreeStyle Lancets) Three times a day lancets As directed losartan 50 mg PO DAILY 90 days memantine 28 mg PO DAILY 30 days metformin 1,000 mg PO BID 90 days paroxetine HCl (Paxil) 30 mg PO DAILY 90 days pen needle, diabetic (Comfort EZ Pen [place]) Use 1 pen needle once a day semaglutide (Ozempic) 2 mg (0.75 mL) subcut QWEEK 4 weeks HPI Comments Details: Nathen is a pleasant 70-year-old man referred for proteinuria. He was accompanied by son was able to translate. Nathen who has history of diabetes mellitus for more than 10 years in the setting of obesity. His renal function has been stable with a serum creatinine 0.8. Recent urine protein creatinine ratio was elevated at 583. There has been a gradual increase in the urine protein excretion over the last few years.Acute kidney injury due to compromised renal perfusion He is currently on losartan 100 mg Recently diagnosed with dementia. He has a history obstructive sleep apnea but does not use CPAP. 04/21/24: Doing well. No new issues On JArdiace. Accompanied by son 10/18/24 On Ozempic Lost 12 lbs over 5 months NO new issues 03/14/25 70-year-old male presenting with follow-up for proteinuria and impaired kidney function. The ongoing management includes the use of Ozempic, which initially facilitated weight loss. However, the patient has recently experienced weight gain, which may influence kidney function. Dietary modifications have been implemented, with an emphasis on low-sugar content in meals, managed by the patient's grinder and honer operator automatic. Current lab results, although not detailed, are part of the ongoing evaluation of his renal function. Medication adherence is overseen actively by his caregiver. 09/14/25 The patient is a 70-year-old male presenting with stable kidney function and controlled blood pressure. His kidney function has been stable, with no significant changes noted in recent assessments. Blood pressure is well-controlled, and urine protein levels are under control, [facility] Medical History Type 2 diabetes mellitus, with long-term current use of insulin Diabetes mellitus, with long-term current use of insulin Hearing loss Encounter for Medicare annual wellness exam Mild recurrent major depression Morbid obesity with BMI of 40.0-44.9, adult Type 2 diabetes mellitus with diabetic polyneuropathy Former smoker Lumbar radiculopathy Proteinuria Retinopathy Hyperlipidemia Obesity due to excess calories Depression with anxiety Pure hypercholesterolemia Type 2 diabetes mellitus with other diabetic kidney complication Surgical History History of surgery History of cataract surgery Family History Father No problems noted. Mother No problems noted. Social History Household Members: None Housing: Apartment Alcohol intake: former Patient Tobacco Use Status: Former Tobacco user Tobacco use type: Cigarette Years Smoked: 20 years e-Cigarette/Vaping Use: Never Used Second Hand Smoke Exposure: No service: No Current occupational status: disabled Cognitive needs: No Hearing needs: Yes Vision needs: Yes Physical Exam Vital Signs: Last Vital Signs Pulse 76 09/14/25 10:19 BP 130/60 09/14/25 10:19 Pulse Ox 97 09/14/25 10:19 Oxygen Delivery Method Room Air 09/14/25 10:19 BMI result Body Mass Index 31.2 Const General: comfortable; No acute distress Orientation/consciousness: patient oriented x3 Eyes General: appearance normal, both eyes and all related structures Visual Rhodes: normal visual rhodes by confrontation Neck Neck: Yes supple and Yes no JVD Resp Effort & Inspection: normal respiratory effort and respiratory effort not decreased Auscultation: rhonchi Cardio Palpation: no palpable S3 and no palpable S4 Heart sounds: no rubs GI Inspection: Yes normal to inspection Palpation (GI): Soft to palpation Percussion: Yes normal to percussion Auscultation: normal bowel sounds General: Yes no CVA tenderness Back/Spine/Pelvis Back: no CVA tenderness Skin General skin exam: no petechiae and no purpura Neuro General: patient oriented x3 and no focal motor deficits Extrem General: No clubbing and No edema Results Reviewed Nephrology Results: Hgb, (14.0-18.0) 15.1 g/dl 07/06/25 WBC, (4.8-10.8) 5.9 X10*3/uL 07/06/25 Plt Count, (160-400) 219 X10*3/uL 07/06/25 Sodium, (135-145) 144 mmol/L 07/06/25 Potassium, (3.3-5.1) 4.7 mmol/L 07/06/25 Chloride, (96-108) 106 mmol/L 07/06/25 Carbon Dioxide, (22-29) 26 mmol/L 07/06/25 BUN, (9-16) 17 mg/dL H 07/06/25 Creatinine, (0.5-1.4) 0.80 mg/dL 07/06/25 Calcium, (8.4-10.2) 9.3 mg/dL 07/06/25 Urine Protein, (Neg-Trace) Negative mg/dL 03/13/25 Urine Creatinine 46.90 mg/dL 07/06/25 Assessment & Plan Assessment & Plan (1) Microalbuminuria: Code(s): R80.9 - Proteinuria, unspecified Category: Medical Plan The patient's management plan for proteinuria and impaired kidney function includes continuation of his current treatment regimen with Ozempic and dietary modifications focused on low-sugar intake. Ongoing monitoring of kidney function and adherence to prescribed medications are emphasized, coordinated by the patient's caregiver. The patient's weight management and proteinuria require consistent assessment, with return evaluation scheduled in six months. Medication refills will continue to be managed by his caregiver as needed. Orders: Orders Creatinine Urine Today R80.9 - Proteinuria, unspecified UA and rflx microscopic Today R80.9 - Proteinuria, unspecified Total Protein Urine Random Today R80.9 - Proteinuria, unspecified Basic Metabolic Panel 6 Months R80.9 - Proteinuria, unspecified Complete Blood Count Auto Diff Today R80.9 - Proteinuria, unspecified Coding Level of Care Code Est Pt Level 4 (15831) Diagnoses Microalbuminuria R80.9
--- OUTSIDE RECORDS SUMMARY | 2025-09-14 11:36 | XMS_ITS | Clinical Summary ---
Author Organization [employer] [facility] Address [address] [facility] 7t [place] [address] Care Team Providers Care Outreach Specialist Name Role Phone Unavailable Primary Care [...] Vaccine: 50+ Years (2 of 2 - PCV20 or PCV21) 05/03/2019 05/03/2018 Dental Oral Exam 08/20/2023 02/17/2023 [...]
--- OUTSIDE RECORDS SUMMARY | 2025-09-14 11:36 | XMS_ITS | Encounter Summary ---
Author Organization [employer] [facility] Address [address] [place] [address] Care Team Providers Care Medical Field Representative Name Role Phone Unavailable Primary Care Provider Unavailabl e Encounter Details Date Type Department Care Team (Late st Contact Info) Description 03/13/[address] [facility] ADULT DENTAL [address] [place] [address] Becky, Mulu [address] [place] [address] Social History Tobacco Use Types Packs/Day Years [...]
--- OUTSIDE RECORDS SUMMARY | 2025-09-14 11:36 | XMS_ITS | Encounter Summary ---
Author Organization [employer] [facility] Address [address] [place] [address] Care Team Providers Care Chief Engineering Division Name Role Phone Unavailable Primary Care Provider Unavailabl e Encounter Details Date Type Department Care Team (Late st Contact Info) Description 03/31/2023 Abstract [facility] ADULT DENTAL [address] [place] [address] Becky, Mulu [address] [place] [address] Social History Tobacco Use Types Packs/Day Years [...]
--- OUTSIDE RECORDS SUMMARY | 2025-09-14 11:37 | XMS_ITS | Clinical Summary ---
Author Organization [facility] Facility Address [address] [place] [address] Care Team Providers Care Soap Grinder Name Role Phone Radha Tello MD Primary Care Provider [phone] Allergies Active Allergy Reactions Criticality Noted Date [...] Medicaid [place] Medicare Medicaid [place] Care Teams Soap Grinder Relationship Specialty Start Date End Date Radha Tello MD [address] [place] [address] PCP - General Internal Medicine 06/21/21
--- OUTSIDE RECORDS SUMMARY | 2025-09-14 11:37 | XMS_ITS | Encounter Summary ---
Author Organization [employer] [facility] Address [address] [facility] 7t [place] [address] Care Team Providers Care Hospice Case Manager Name Role Phone Unavailable Primary Care [...]
== END 2025-09-14 10:39 | disposition home or self-care (01) ==
LOC: HO.HKA 09:51
PROVIDERS: PCP Internal Medicine; Visit Provider Internal Medicine Hypertension Specialist
DX: R80.9 Proteinuria, unspecified (principal)
CPT/HCPCS: 99214

== ENCOUNTER → 2025-09-14 09:50 | Outpatient (BNVA) | payer MEDICARE, MEDICAID, SELFPAY | PROVIDERS: PCP Internal Medicine; Visit Provider Internal Medicine Hypertension Specialist | DX: E11.65 Type 2 diabetes mellitus with hyperglycemia (principal); Z79.4 Long term (current) use of insulin; Z79.85 Long-term (current) use of injectable non-insulin antidiabetic drugs; Z79.84 Long term (current) use of oral hypoglycemic drugs; R80.9 Proteinuria, unspecified; E66.9 Obesity, unspecified; Z68.31 Body mass index [BMI] 31.0-31.9, adult; Z87.891 Personal history of nicotine dependence; E78.00 Pure hypercholesterolemia, unspecified | CPT/HCPCS: 99212 ==

== ENCOUNTER 2025-10-03 08:15 | Outpatient (AMB) | payer MEDICARE, MEDICAID, SELFPAY ==
--- OUTSIDE RECORDS SUMMARY | 2025-10-03 08:18 | XMS_ITS | Encounter Summary ---
Author Organization [employer] [facility] Address [address] [facility] 7t [place] [address] Care Team Providers Care Silver Plater Name Role Phone Unavailable Primary Care Provider Unavailabl e Encounter Details Date Type Department Care Team (Late st Contact Info) Description 03/13/2023 Abstract [facility] ADULT DENTAL [address] [place] [address] Becky, Mulu [address] [place] [address] Social History Tobacco Use Types Packs/Day Years [...]
--- OUTSIDE RECORDS SUMMARY | 2025-10-03 08:18 | XMS_ITS | Encounter Summary ---
Author Organization [employer] [facility] Address [address] [place] [address] Care Team Providers Care Family Resource Coordinator Name Role Phone Unavailable Primary Care Provider Unavailabl e Encounter Details Date Type Department Care Team (Late st Contact Info) Description 03/31/2023 Abstract [facility] ADULT DENTAL [address] [place] [address] Becky, Mulu [address] [place] [address] Social History Tobacco Use Types Packs/Day Years [...]
--- OUTSIDE RECORDS SUMMARY | 2025-10-03 08:18 | XMS_ITS | Clinical Summary ---
Author Organization [employer] [facility] Address [address] [facility] 7t [place] [address] Care Team Providers Care Production Artist Name Role Phone Unavailable Primary Care Provider [...]
--- OUTSIDE RECORDS SUMMARY | 2025-10-03 08:18 | XMS_ITS | Encounter Summary ---
Author Organization [employer] [facility] Address [address] [facility] [address]t [place] [address] Care Team Providers Care Big Data Admin Name Role Phone Unavailable Primary Care Provider [...]
[2025-10-03 08:23] VITALS: BP 114/72; PULSE 65; O2SAT 98; BMI 31.4
--- NOTE | 2025-10-03 08:23 | AM.OFFVISMDC ---
Intake Vital Signs 10/03/25 08:23 Height 5 ft 3 in Weight 80.286 kg BMI 31.4 BP 114/72 Blood Pressure Location Lt brachial Position Sitting Pulse 65 Pulse Source Pulse Oximeter Pulse Oximetry (%) 98 Oxygen Delivery Method Room Air Intake Visit Reasons: AWV Allergies enalapril (ENALAPRIL) Allergy (Unknown, Verified 10/03/25 08:23) UNKNOWN lisinopril Allergy (Unknown, Verified 10/03/25 08:23) UNKNOWN Anesthetics - Amide Type - Select A Adverse Reaction (Severe, Verified 10/03/25 08:23) loss of consciousness [facility] Medical History Type 2 diabetes mellitus, with long-term current use of insulin Diabetes mellitus, with long-term current use of insulin Hearing loss Encounter for Medicare annual wellness exam Mild recurrent major depression Morbid obesity with BMI of 40.0-44.9, adult Type 2 diabetes mellitus with diabetic polyneuropathy Former smoker Lumbar radiculopathy Proteinuria Retinopathy Hyperlipidemia Obesity due to excess calories Depression with anxiety Pure hypercholesterolemia Type 2 diabetes mellitus with other diabetic kidney complication Surgical History History of surgery History of cataract surgery Family History Father No problems noted. Mother No problems noted. Social History Household Members: None Housing: Apartment Alcohol intake: former Patient Tobacco Use Status: Former Tobacco user Tobacco use type: Cigarette Years Smoked: 20 years e-Cigarette/Vaping Use: Never Used Second Hand Smoke Exposure: No service: No Current occupational status: disabled Cognitive needs: No Hearing needs: Yes Vision needs: Yes Questionnaire Medicare Wellness Checkup [age] What gender do you identify with?: male During the past 4 weeks, how much have you been bothered by emotional problems such as feeling anxious, depressed, irritable, sad or downhearted, and blue?: quite a bit During the past 4 weeks, has your physical & emotional health limited your social activities with family, friends, neighbors, or groups?: not at all During the past 4 weeks, how much bodily pain have you generally had?: no pain During the past 4 weeks, was someone available to help you if you needed & wanted help?: yes, quite a bit During the past 4 weeks, what was the hardest physical activity you could do for at least 2 minutes?: light Can you get to places out of walking distance without help? (For eg., can you travel alone on buses, taxis or drive your car?): No Can you go shopping for groceries or clothes without someone's help?: No Can you prepare your own meals?: No Can you do your housework without help?: No Because of any health problems, do you need the help of another person with your personal care needs such as eating, bathing, dressing or getting around the house?: No Can you handle your own money without help?: No During the past 4 weeks, how would you rate your health in general?: good During the past 4 weeks how have things been going for you?: pretty bad Are you having difficulties driving your car?: not applicable, I don't use a car Do you always fasten your seat belt when you are in a car?: yes, usually During past 4 weeks, have you been bothered by the following: never: Falling or dizzy when standing up, Sexual problems?, Trouble eating well?, Teeth or denture problems? and Tiredness or fatigue? and always: Problems using the telephone? Have you fallen 2 or more times in the past year?: No Are you afraid of falling?: Yes Are you a smoker?: no During the past 4 weeks, how many drinks of wine, beer, or other alcoholic beverages did you have?: no alcohol at all Do you exercise for about 20 minutes 3 or more times a week?: no, I usually do not exercise this much Have you been given information to help with the following?: no: Hazards in your house that might hurt you? and no: Keeping track of your medications? How often do you have trouble taking medicines the way you have been told to take them?: I always take medicine as prescribed How confident are you that you can control & manage most of your health problems?: not very confident What is your race?: or origin or descent PHQ-9 Over the last 2 weeks, how often have you been bothered by any of the following problems? 1. Little interest or pleasure in doing things: not at all 2. Feeling down, depressed, or hopeless: not at all 3. Trouble falling or staying asleep, or sleeping too much: not at all 4. Feeling tired or having little energy: not at all 5. Poor appetite or overeating: not at all 6. Feeling bad about yourself - or that you are a failure or have let yourself or your family down: not at all 7. Trouble concentrating on things, such as reading the newspaper or watching television: not at all 8. Moving or speaking so slowly that other people could have noticed. Or the opposite - being so fidgety or restless that you have been moving around a lot more than usual: not at all 9. Thoughts that you would be better off or of hurting yourself in some way: not at all Total score: 0 Depression Screening Interpretation: Negative Depression Screening Done: Yes Source: Developed by Drs. Skinny Wallace, Columba Garcia, Elvis Canales and colleagues, with an educational evaristo from [employer]. Assessment & Plan Assessment & Plan Orders: Orders AMB Hemoglobin A1c Today Z13.9 - Encounter for screening, unspecified Quality Reporting (2019) Adult ([facility] 138/2//69) Smoking risk assessment performed?: Yes Patient Tobacco Use Status: Former Tobacco user Depression/Bipolar (159/160/161/177) PHQ-9: Total score: 0 Coding
--- NOTE | 2025-10-03 08:50 | MHC.PC.OV ---
Vital Signs 10/03/25 08:23 Height 5 ft 3 in Weight 177 lb BMI 31.4 BP 114/72 Blood Pressure Location Lt brachial Position Sitting Pulse 65 Pulse Source Pulse Oximeter Pulse Oximetry (%) 98 Oxygen Delivery Method Room Air Intake Visit Reasons: AWV General Machinist Required: No Accompanied by: Self / Same As Patient Allergies enalapril (ENALAPRIL) Allergy (Unknown, Verified 10/03/25 08:50) UNKNOWN lisinopril Allergy (Unknown, Verified 10/03/25 08:50) UNKNOWN Anesthetics - Amide Type - Select A Adverse Reaction (Severe, Verified 10/03/25 08:50) loss of consciousness Medication List - Last Reconciled 10/03/25 by Radha Thakur MD atorvastatin 80 mg PO DAILY 90 days blood sugar diagnostic (FreeStyle Lite Strips) As directed three times a day blood-glucose meter (FreeStyle Lite Meter kit) As directed 3x/day cyanocobalamin (vitamin B-12) 1,000 mcg IM Q4W 4 weeks [Diabetic shoes As directed] empagliflozin (Jardiance) 25 mg PO DAILY 90 days folic acid 400 mcg PO DAILY 30 days insulin syringe-needle U-100 As directed lancets (FreeStyle Lancets) Three times a day lancets As directed losartan 50 mg PO DAILY 90 days memantine 28 mg PO DAILY 30 days metformin 1,000 mg PO BID 90 days paroxetine HCl (Paxil) 30 mg PO DAILY 90 days pen needle, diabetic (Comfort EZ Pen [place]) Use 1 pen needle once a day semaglutide (Ozempic) 2 mg (0.75 mL) subcut QWEEK 4 weeks Tobacco use date assessed: 07/13/25 Dental Screening Dental Screen Date: 07/13/25 HPI HPI Comments History of Present Illness Details The patient is a 70 year old individual presenting for a follow-up visit for management of multiple chronic conditions including type 2 diabetes mellitus, hyperlipidemia, B12 deficiency, hypertension, depression, and dementia. The patient has no known drug allergies. Blood pressure within goal. A1c of 7.3% today and no changes will be made. Regarding the patient's dementia, the patient is on memantine 28 mg which is reported to be ineffective. The patient experiences behavioral changes, which worsen around noon to 1 PM. He is having some agitation and Seroquel will be added. Current medications include lisinopril, atorvastatin, vitamin B12, Jardiance 25 mg, folic acid, losartan 50 mg, memantine 28 mg, metformin, paroxetine, and Ozempic 2 mg. The patient's last tetanus vaccination was in 2010. The patient has previously received the pneumonia vaccine. [facility] Medical History Type 2 diabetes mellitus, with long-term current use of insulin Diabetes mellitus, with long-term current use of insulin Hearing loss Encounter for Medicare annual wellness exam Mild recurrent major depression Morbid obesity with BMI of 40.0-44.9, adult Type 2 diabetes mellitus with diabetic polyneuropathy Former smoker Lumbar radiculopathy Proteinuria Retinopathy Hyperlipidemia Obesity due to excess calories Depression with anxiety Pure hypercholesterolemia Type 2 diabetes mellitus with other diabetic kidney complication Surgical History History of surgery History of cataract surgery Family History Father No problems noted. Mother No problems noted. Social History Household Members: None Housing: Apartment Alcohol intake: former Patient Tobacco Use Status: Former Tobacco user Tobacco use type: Cigarette Years Smoked: 20 years e-Cigarette/Vaping Use: Never Used Second Hand Smoke Exposure: No service: No Current occupational status: disabled Cognitive needs: No Hearing needs: Yes Vision needs: Yes Questionnaire Thrive Questionnaire Date Thrive assessed: 07/13/25 I am a: Patient What is your living situation today?: I choose not to answer this question Within the past 12 months, did the food you bought not last and you didn't have the money to get more?: Never true Within the past 12 months, did you worry whether your food would run out before you got money to buy more?: Sometimes True Do you have trouble paying for medicines?: No Do you have trouble getting transportation to medical appointments?: No Do you have trouble paying your heating and electricity bill?: No Do you have trouble taking care of your child, family member or friend?: Yes Do you have trouble with day-to-day activities such as bathing, preparing meals, shopping, managing finances, etc.?: Yes Are you currently unemployed and looking for a job?: No Are you interested in more education?: No Please select the resources that you would like help with: None Currently or been in a relationship where the following occur: I choose not to answer THRIVE Score: 1 ROBERT-7 AMB Questionnaire ROBERT-7 Date ROBERT - 7 assessed: 02/27/25 Source: Developed by Drs. Skinny Wallace, Columba Garcia, Elvis Canales and colleagues, with an educational evaristo from [employer]. Review of Systems Const All systems reviewed & are unremarkable except as noted in HPI and below Card Denies chest pain at rest, Denies chest pain with activity, Denies edema, Denies irregular heart rhythm, Denies claudication, Denies dyspnea, Denies dyspnea on exertion, Denies orthopnea, Denies paroxysmal nocturnal dyspnea and Denies slow heart rate Resp Denies cough, Denies dyspnea and Denies dyspnea on exertion GI Denies abdominal pain, Denies change in bowel habits, Denies excessive flatus, Denies nausea and Denies vomiting Physical exam (Primary Care) Vital Signs: Last Vital Signs Pulse 65 10/03/25 08:23 BP 114/72 10/03/25 08:23 Pulse Ox 98 10/03/25 08:23 Oxygen Delivery Method Room Air 10/03/25 08:23 BMI result Body Mass Index 31.4 BMI Assessment/Plan discussion: High BMI High, discussed plan: lifestyle, weight reduction, dietary and physical activity Tobacco/Smoking Status: Tobacco use Status Tobacco use date assessed 07/13/25 10/03/25 08:54 Patient Tobacco Use Status Former Tobacco user 10/03/25 08:54 Tobacco use type Cigarette 10/03/25 08:54 e-Cigarette/Vaping Use Never Used 10/03/25 08:54 Thrive Assessment: Date of Thrive Assessment Date Thrive assessed 07/13/25 10/03/25 08:54 Currently or been in a relationship where the following occur: I choose not to answer Resp Effort & Inspection: normal respiratory effort Auscultation: clear to auscultation bilaterally Cardio Jugular venous distension: no JVD Rate: regular rate Rhythm: regular rhythm Heart sounds: S1 normal heart sound present and S2 normal heart sound present Extrem General: Yes full ROM Office Procedures Flu Questionnaire Does the patient have a severe egg allergy?: No Does the patient have severe life threatening allergies?: No Does the patient have a fever or illness today?: No Has the patient ever had Guillain-[place] Syndrome?: No Has the patient ever had any past reaction to a flu shot?: No Results AMB Hemoglobin A1c AMB Hemoglobin A1c 7.3 % Last Edit by Jailene Hodgson CMA on 10/03/25 09:01 Immunizations Fluarix [id number] (PF) 45 mcg (15 mcg x 3)/0.5 mL IM syringe Performing Provider: Radha Thakur MD [place] [facility] [place] [facility] Administered by: Jailene Hodgson CMA on 10/03/25 09:07 Dose Route Admin Location Dispensed Lot Number Expiration Date NDC Sign Builder Supervisor 0.5 mL IM Left Deltoid 0.5 mL [id number] 05/01/25 04179-696-77 Follicum VIS Given Date VIS Provided VIS Publication Date 10/03/25 Single Vaccine 24 Eligibility Eligibility Date Funding Source Not VFC Eligible 10/03/25 Private Tenivac (PF) 5 Lf unit-2 Lf unit/0.5 mL intramuscular syringe Performing Provider: Radha Thakur MD Performing Location: [facility] Administered by: Jailene Hodgson CMA on 10/03/25 09:07 Dose Route Admin Location Dispensed Lot Number Expiration Date NDC Sign Builder Supervisor 0.5 mL IM Left Deltoid 0.5 mL [id number] 12/31/26 [id number] [employer] Total Dispensed Waste 0.5 mL 0 % VIS Given Date VIS Provided VIS Publication Date 10/03/25 Single Vaccine 21 Eligibility Eligibility Date Funding Source Not VFC Eligible 10/03/25 Private Results Reviewed Results Reviewed: Laboratory Last Values Hgb A1c (Clinic) 7.3 % (4.0-6.0) H 10/03/25 08:24 Coding Level of Care Code Complex visit Add On G2211 Diagnoses Mild early onset Alzheimer's dementia without behavioral disturbance, psychotic disturbance, mood disturbance, or anxiety G30.0; F02.A0 Alzheimer's disease onset: early onset Dementia behavioral or psychological symptom: without behavioral, psychotic, or mood disturbance or anxiety Dementia severity: mild Dementia type: Alzheimer's Type 2 diabetes mellitus with hyperglycemia, without long-term current use of insulin E11.65 Diabetes mellitus complication status: with hyperglycemia Diabetes mellitus type: type 2 Pure hypercholesterolemia E78.00 Mild recurrent major depression F33.0 Essential hypertension I10 Hypertension type: essential hypertension Time Spent (min) 23 Assessment & Plan Assessment & Plan (1) Dementia: Code(s): F03.90 - Unspecified dementia, unspecified severity, without behavioral disturbance, psychotic disturbance, mood disturbance, and anxiety Category: Medical Qualifiers: Alzheimer's disease onset: early onset Dementia behavioral or psychological symptom: without behavioral, psychotic, or mood disturbance or anxiety Dementia severity: mild Dementia type: Alzheimer's Qualified Code(s): G30.0 - Alzheimer's disease with early onset; F02.A0 - Dementia in other diseases classified elsewhere, mild, without behavioral disturbance, psychotic disturbance, mood disturbance, and anxiety (2) Diabetes mellitus, without long-term current use of insulin: Code(s): E11.9 - Type 2 diabetes mellitus without complications Category: Medical Qualifiers: Diabetes mellitus complication status: with hyperglycemia Diabetes mellitus type: type 2 Qualified Code(s): E11.65 - Type 2 diabetes mellitus with hyperglycemia (3) Pure hypercholesterolemia: Code(s): E78.00 - Pure hypercholesterolemia, unspecified Category: Medical (4) Mild recurrent major depression: Code(s): F33.0 - Major depressive disorder, recurrent, mild Category: Medical (5) HTN (hypertension): Code(s): I10 - Essential (primary) hypertension Category: Medical Qualifiers: Hypertension type: essential hypertension Qualified Code(s): I10 - Essential (primary) hypertension Plan Plan 1. Dementia The patient's dementia is accompanied by behavioral disturbances in the afternoon, and the current treatment with memantine is reported to be ineffective. To manage the agitation, quetiapine 0.50 mg will be prescribed to be taken as needed, up to twice daily. The caregiver was advised to administer a dose around 1:00 or 2:00 PM and a second one if necessary. 2. Type 2 Diabetes Mellitus The patient's glycemic control is acceptable with a recent HbA1c of 7.3%. Continue current medications, which include Jardiance, metformin, and Ozempic. Will order new laboratory tests. 3. Hypertension Blood pressure is well-controlled, remaining below the target of 130/80 mmHg. Continue current treatment with lisinopril and losartan. 4. Hyperlipidemia Continue atorvastatin for management of hyperlipidemia. 5. Depression Continue paroxetine for management of depression. 6. Health Maintenance A T-Spot test for tuberculosis screening will be ordered. The patient will receive an influenza vaccine and a tetanus vaccine today, as the last tetanus booster was in 2010. The patient is up to date on the pneumonia vaccine. Orders: Orders T Spot TB Today Z11.1 - Encounter for screening for respiratory tuberculosis Microalbumin, Random (w Creat) Today R80.9 - Proteinuria, unspecified Vitamin D 25-OH Total Today E55.9 - Vitamin D deficiency, unspecified Influenza [id number] Immunization Today Z23 - Encounter for immunization AMB Hemoglobin A1c Today Z13.9 - Encounter for screening, unspecified Vitamin B12 and Folate Today E53.8 - Deficiency of other specified B group vitamins Comprehensive Met. Panel Today E78.00 - Pure hypercholesterolemia, unspecified Td Immunization Today Z23 - Encounter for immunization Medications: New quetiapine 50 mg PO BID PRN 60 tabs 6RF agitation 30 days
== END 2025-10-03 09:16 | disposition home or self-care (01) ==
PROVIDERS: PCP Internal Medicine; Visit Provider Internal Medicine
DX: G30.0 Alzheimer's disease with early onset (principal); F02.A0 Dementia in other diseases classified elsewhere, mild, without behavioral disturbance, psychotic disturbance, mood disturbance, and anxiety; E11.65 Type 2 diabetes mellitus with hyperglycemia; E78.00 Pure hypercholesterolemia, unspecified; F33.0 Major depressive disorder, recurrent, mild; I10 Essential (primary) hypertension; Z23 Encounter for immunization

== ENCOUNTER → 2025-10-03 08:15 | Outpatient (BNVA) | payer MEDICARE, MEDICAID, SELFPAY | PROVIDERS: PCP Internal Medicine; Visit Provider Internal Medicine | DX: G30.0 Alzheimer's disease with early onset (principal); F02.A0 Dementia in other diseases classified elsewhere, mild, without behavioral disturbance, psychotic disturbance, mood disturbance, and anxiety; E11.65 Type 2 diabetes mellitus with hyperglycemia; E78.00 Pure hypercholesterolemia, unspecified; F33.0 Major depressive disorder, recurrent, mild; I10 Essential (primary) hypertension; Z23 Encounter for immunization | CPT/HCPCS: 83036; 90471; 90656; 90714; 99212 ==

== ENCOUNTER 2025-10-04 08:04 | Outpatient (REF) | payer MEDICARE, MEDICAID, SELFPAY ==
[2025-10-04 09:53] LABS: Microalbum/Creatinine Ratio Ur 15.4 ug/mg cr (<30)
[2025-10-04 09:57] LABS: Alanine Aminotransferase 26 U/L (0-40); Albumin Level 4.3 g/dL (3.5-5.0); Alkaline Phosphatase 115 U/L (39-117); Anion Gap 13 (12-20); Aspartate Amino Transferase 22 U/L (5-37); Blood Urea Nitrogen 31 mg/dL (9-16); Calcium 9.1 mg/dL (8.4-10.2); Carbon Dioxide 24 mmol/L (22-29); Chloride 107 mmol/L (96-108); Estimated Glomerular Filt Rate > 60; Potassium 4.0 mmol/L (3.3-5.1); Sodium 140 mmol/L (135-145); Total Protein 6.9 g/dL (6.5-8.0)
[2025-10-04 10:19] LABS: Folate 17.4 ng/mL (> or = 4.0); Vitamin B12 264 pg/mL (200-900)
[2025-10-07 10:34] LABS: TS Negative Control Passed; TS Panel A 1; TS Panel B 2; TS Positive Control Passed; TSpotTB Negative (Negative)
== END 2025-10-04 08:05 | disposition home or self-care (01) ==
LOC: HO.LAB 08:04
PROVIDERS: PCP Internal Medicine; Visit Provider Internal Medicine
DX: Z11.1 Encounter for screening for respiratory tuberculosis (principal); E78.00 Pure hypercholesterolemia, unspecified; E55.9 Vitamin D deficiency, unspecified; E53.8 Deficiency of other specified B group vitamins; R80.9 Proteinuria, unspecified
CPT/HCPCS: 36415; 80053; 82043; 82306; 82570; 82607; 82746; 86481

== ENCOUNTER 2025-10-11 07:38 | Outpatient (AMB) | payer MEDICARE, MEDICAID, SELFPAY ==
--- OUTSIDE RECORDS SUMMARY | 2025-10-11 07:58 | XMS_ITS | Encounter Summary ---
Author Organization [employer] [facility] Address [address] [place] [address] Care Team Providers Care Architectural Superintendent Name Role Phone Unavailable Primary Care Provider Unavailabl e Encounter Details Date Type Department Care Team (Late st Contact Info) Description 03/31/2023 Abstract [facility] ADULT DENTAL [address] [place] [address] Becky, Mulu [address] [place] [address] Social History Tobacco Use Types Packs/Day Years [...]
--- OUTSIDE RECORDS SUMMARY | 2025-10-11 07:58 | XMS_ITS | Clinical Summary ---
Author Organization [facility] Facility Address [address] [place] [id number] Care Team Providers Care Apartment Maintenance Technician Name Role Phone Radha Tello MD Primary Care Provider [phone] Allergies Active Allergy Reactions Criticality Noted Date [...] Medicaid [place] Care Teams Apartment Maintenance Technician Relationship Specialty Start Date End Date Radha Tello MD [address] [place] [address] PCP - General Internal Medicine 06/21/21
--- OUTSIDE RECORDS SUMMARY | 2025-10-11 07:58 | XMS_ITS | Encounter Summary ---
Author Organization [employer] [facility] Address [address] [place] [address] Care Team Providers Care Validation Scientist Name Role Phone Unavailable Primary Care Provider Unavailabl e Encounter Details Date Type Department Care Team (Late st Contact Info) Description 03/13/2023 Abstract [facility] ADULT D[facility]AL [address] [place] [address] Bekcy, Mulu [address] [place] [address] Social History Tobacco Use Types Packs/Day Years [...]
--- OUTSIDE RECORDS SUMMARY | 2025-10-11 07:58 | XMS_ITS | Clinical Summary ---
Author Organization [employer] [facility] Address [address] [place] [address] Care Team Providers Care Pressroom Supervisor Name Role Phone Unavailable Primary Care [...]
--- OUTSIDE RECORDS SUMMARY | 2025-10-11 07:59 | XMS_ITS | Encounter Summary ---
Author Organization [employer] [facility] Address [address] [place] [address] Care Team Providers Care Office Cleaner Name Role Phone Unavailable Primary Care [...]
[2025-10-11 08:02] VITALS: BP 120/70; PULSE 67; O2SAT 97; BMI 31.7
--- NOTE | 2025-10-11 08:02 | A.OFFVIS_ITS ---
Vital Signs 10/11/25 08:02 Height 5 ft 3 in Weight 179 lb BMI 31.7 BP 120/70 Blood Pressure Location Rt brachial Position Sitting Pulse 67 Pulse Source Pulse Oximeter Pulse Oximetry (%) 97 Oxygen Delivery Method Room Air Intake Visit Reasons: 6mo F/U Intake Note: Patient presents 6 month follow up for cognitive. Devil Dog Required: No Devil Dog Name: Son translated Accompanied by: Son Allergies enalapril (ENALAPRIL) Allergy (Unknown, Verified 10/11/25 08:12) UNKNOWN lisinopril Allergy (Unknown, Verified 10/11/25 08:12) UNKNOWN Anesthetics - Amide Type - Select A Adverse Reaction (Severe, Verified 10/11/25 08:12) loss of consciousness Medication List - Last Reconciled 10/11/25 by CARLITA Lopez atorvastatin 80 mg PO DAILY 90 days blood sugar diagnostic (FreeStyle Lite Strips) As directed three times a day blood-glucose meter (FreeStyle Lite Meter kit) As directed 3x/day cholecalciferol (vitamin D3) 25 mcg PO DAILY 90 days cyanocobalamin (vitamin B-12) 1,000 mcg IM Q4W 4 weeks [Diabetic shoes As directed] empagliflozin (Jardiance) 25 mg PO DAILY 90 days folic acid 400 mcg PO DAILY 30 days insulin syringe-needle U-100 As directed lancets (FreeStyle Lancets) Three times a day lancets As directed losartan 50 mg PO DAILY 90 days memantine 28 mg PO DAILY 30 days metformin 1,000 mg PO BID 90 days paroxetine HCl (Paxil) 30 mg PO DAILY 90 days pen needle, diabetic (Comfort EZ Pen [place]) Use 1 pen needle once a day quetiapine 12.5 mg (1/2 x 25 mg) PO BID 30 days MDD 2 tabs semaglutide (Ozempic) 2 mg (0.75 mL) subcut QWEEK 4 weeks HPI Comments Details: Right-handed 70-yr-old male presents for f/u of cognitive difficulties. Pt is accompanied by his son. Patient himself states he is doing well and he has no concerns. Patient states his memory is fine. Patient states he is eating and drinking well. Patient states he is sleeping well, but does endorse nocturnal auditory hallucinations- hears voices talking to him, which is bothersome. Denies any falls. Pt's son also reports pt's cognitive difficulties are worsening. The patient is forgetting that he has eaten- and will eat an entire box of cereal. And will sometimes eat the powdered coffee. Continues to have episodes of repeating himself, misplacing items. Son is still monitoring pt via live stream video. His son is concerned that the patient is having increased agitation and aggression after approx. 1pm until he goes to bed around 6pm. During this time, he will leave the house on his own, has attempted to leave his son's car while driving, and tries to take down the cameras in the house. When the son tries to re-orient the patient, the patient tends to become more argumentative. The son states the patient's neighbor's have called the police as they think he is fighting with his father, but the son states he is just trying to have the patient hear him. They discussed this with PCP, who ordered quetiapine 50mg bid, but they have not rec'd this yet- ? needs a PA. Patient continues to live alone in senior housing apartment. Son now helps with meal prep, finances, and grocery shopping. He now has [id number] for lunch. He now has a MACHINE CEMENTER who is helping w/ laundry. [facility] Medical History Type 2 diabetes mellitus, with long-term current use of insulin Diabetes mellitus, with long-term current use of insulin Hearing loss Encounter for Medicare annual wellness exam Mild recurrent major depression Morbid obesity with BMI of 40.0-44.9, adult Type 2 diabetes mellitus with diabetic polyneuropathy Former smoker Lumbar radiculopathy Proteinuria Retinopathy Hyperlipidemia Obesity due to excess calories Depression with anxiety Pure hypercholesterolemia Type 2 diabetes mellitus with other diabetic kidney complication Surgical History History of surgery History of cataract surgery Family History Father No problems noted. Mother No problems noted. Social History Household Members: None Housing: Apartment Alcohol intake: former Patient Tobacco Use Status: Former Tobacco user Tobacco use type: Cigarette Years Smoked: 20 years e-Cigarette/Vaping Use: Never Used Second Hand Smoke Exposure: No service: No Current occupational status: disabled Cognitive needs: No Hearing needs: Yes Vision needs: Yes Physical Exam Vital Signs: Last Vital Signs Pulse 67 10/11/25 08:02 BP 120/70 10/11/25 08:02 Pulse Ox 97 10/11/25 08:02 Oxygen Delivery Method Room Air 10/11/25 08:02 BMI result Body Mass Index 31.7 Const General: cooperative and no acute distress Resp Effort & Inspection: normal respiratory effort and able to speak in complete sentences Neuro Other: Alert, responsive, with mild confabulation. Patient is able to correctly state that we are in a health clinic, but states we are in [place] rather than [place]. Patient is unable to state the date, month, day of week, year or season. General: CN's II-XI intact bilaterally Gait exam (Neuro): Normal gait present Motor exam (neuro): 5/5 motor strength present throughout Psych Appearance: grossly normal Speech and movement: Normal speech and movement present Affect: normal affect Attitude: cooperative Assessment & Plan Assessment & Plan (1) Dementia: Code(s): F03.90 - Unspecified dementia, unspecified severity, without behavioral disturbance, psychotic disturbance, mood disturbance, and anxiety Category: Medical Qualifiers: Alzheimer's disease onset: early onset Dementia behavioral or psychological symptom: without behavioral, psychotic, or mood disturbance or anxiety Dementia severity: mild Dementia type: Alzheimer's Qualified Code(s): G30.0 - Alzheimer's disease with early onset; F02.A0 - Dementia in other diseases classified elsewhere, mild, without behavioral disturbance, psychotic disturbance, mood disturbance, and anxiety (2) Cognitive impairment: Code(s): R41.89 - Other symptoms and signs involving cognitive functions and awareness Category: Medical (3) ZACH (obstructive sleep apnea): Code(s): G47.33 - Obstructive sleep apnea (adult) (pediatric) Category: Medical (4) Auditory hallucination: Code(s): R44.0 - Auditory hallucinations Category: Medical Plan Start Quetiapine 12.5 mg twice a day- 9am and 5pm * Reviewed the risks and benefits. Continue vitamin B12 supplement as ordered by PCP Continue vitamin-D supplement. Continue folic acid 400 mg daily. Continue Donepazil 10mg qd. Continue Memantine ER 28mg daily. Patient has declined f/u sleep study. Will monitor. Discussed again that patient is having increased cognitive difficulties, and will need increased care, such as increased home care assistance, living with family, or possibly a memory care unit in [facility]. Son has been encouraged to look at the Alzheimer's website for caregiver education/support. Informed the patient and his son that we will make a referral to eldercare services, as patient and his son would benefit from emergency medical technician and evaluation for increased services, and education r/t caregiver burden for his son. Pt to follow-up in 6 months or sooner prn. Medications: New quetiapine 12.5 mg (1/2 x 25 mg) PO BID 30 tabs 6RF 30 days MDD 2 tabs R44.0 - Auditory hallucinations Discontinued quetiapine Discontinued Reason: Doctor's Order 50 mg PO BID 30 days PRN 60 tabs 6RF agitation Coding Level of Care Code Est Pt Level 4 (43479) Diagnoses Mild early onset Alzheimer's dementia without behavioral disturbance, psychotic disturbance, mood disturbance, or anxiety G30.0; F02.A0 Alzheimer's disease onset: early onset Dementia behavioral or psychological symptom: without behavioral, psychotic, or mood disturbance or anxiety Dementia severity: mild Dementia type: Alzheimer's Cognitive impairment R41.89 ZACH (obstructive sleep apnea) G47.33 Auditory hallucination R44.0
== END 2025-10-11 09:09 | disposition home or self-care (01) ==
LOC: HO.HSMS 07:39
PROVIDERS: PCP Internal Medicine; Visit Provider Nurse Practitioner Family
DX: G30.0 Alzheimer's disease with early onset (principal); F02.A0 Dementia in other diseases classified elsewhere, mild, without behavioral disturbance, psychotic disturbance, mood disturbance, and anxiety; R41.89 Other symptoms and signs involving cognitive functions and awareness; G47.33 Obstructive sleep apnea (adult) (pediatric); R44.0 Auditory hallucinations
CPT/HCPCS: 99214

== ENCOUNTER → 2025-10-11 07:38 | Outpatient (BNVA) | payer MEDICARE, MEDICAID, SELFPAY | PROVIDERS: PCP Internal Medicine; Visit Provider Nurse Practitioner Family | DX: G30.0 Alzheimer's disease with early onset (principal); E53.8 Deficiency of other specified B group vitamins; F02.A0 Dementia in other diseases classified elsewhere, mild, without behavioral disturbance, psychotic disturbance, mood disturbance, and anxiety; R41.89 Other symptoms and signs involving cognitive functions and awareness; G47.33 Obstructive sleep apnea (adult) (pediatric); R44.0 Auditory hallucinations | CPT/HCPCS: 99212 ==

== ENCOUNTER 2025-10-17 09:59 | Outpatient (AMB) | payer MEDICARE, MEDICAID, SELFPAY ==
--- NOTE | 2025-10-17 10:03 | A.OFFVIS_ITS ---
Vital Signs 10/17/25 10:04 Height 5 ft 3 in Weight 180 lb 12.465 oz BMI 32.0 BP 122/50 L Blood Pressure Location Rt brachial Position Sitting Pulse 76 Pulse Source Pulse Oximeter Pulse Oximetry (%) 96 Oxygen Delivery Method Room Air Intake Visit Reasons: F/U with NIURKA for DM control Intake Note: Patient presents here today for a follow-up on Type 2 Diabetes Mellitus: Last Diabetic eye exam was on: 12/2024, [facility] Last Podiatry exam was on: Patient does not see a Roofing Foreman Most recent HbA1c: 7.3% , 10/03/2025 Random Glucose: 224 mg/dL Family Consumer Science Teacher Required: Yes Family Consumer Science Teacher Language: Historic Sites Registrar Services: Family Consumer Science Teacher Offered & Declined (DR Landrum Speak Fluent Chinese) Family Consumer Science Teacher Name: DR Landrum Speak [facility] Accompanied by: Son Allergies enalapril (ENALAPRIL) Allergy (Unknown, Verified 10/17/25 10:04) UNKNOWN lisinopril Allergy (Unknown, Verified 10/17/25 10:04) UNKNOWN Anesthetics - Amide Type - Select A Adverse Reaction (Severe, Verified 10/17/25 10:04) loss of consciousness Medication List - Last Reconciled 10/17/25 by Yeset Lucita Palacios MD atorvastatin 80 mg PO DAILY 90 days blood sugar diagnostic (FreeStyle Lite Strips) As directed three times a day blood-glucose meter (FreeStyle Lite Meter kit) As directed 3x/day cholecalciferol (vitamin D3) 25 mcg PO DAILY 90 days cyanocobalamin (vitamin B-12) 1,000 mcg IM Q4W 4 weeks [Diabetic shoes As directed] empagliflozin (Jardiance) 25 mg PO DAILY 90 days folic acid 400 mcg PO DAILY 30 days insulin syringe-needle U-100 As directed lancets As directed lancets (FreeStyle Lancets) Three times a day losartan 50 mg PO DAILY 90 days memantine 28 mg PO DAILY 30 days metformin 1,000 mg PO BID 90 days paroxetine HCl (Paxil) 30 mg PO DAILY 90 days pen needle, diabetic (Comfort EZ Pen [place]) Use 1 pen needle once a day quetiapine 12.5 mg (1/2 x 25 mg) PO BID 30 days MDD 2 tabs semaglutide (Ozempic) 2 mg (0.75 mL) subcut QWEEK 4 weeks HPI Comments Details: HPI: The patient was diagnosed with Type 2 Diabetes Mellitus over five years ago. His management was taken over by his son due to Alzheimer's disease. The caregiver has been monitoring his diet, reducing sugar intake, and overseeing his meals. The patient stopped using insulin two years ago due to fluctuations in blood sugar levels and is now on oral medications and weekly injectable. He has a history of consuming excessive amounts of food, particularly pears, and irregular eating patterns. He has a history of cognitive impairment, which affects his ability to self-manage diabetes. Unfortunately patient is not checking his blood sugars and there is no records of his glucose. He did use CGM in the past but due to his cognitive impairment he pulled it off multiple times. Patient was seen by Ophthalmology and on January this year, and will started to have diabetic retinopathy (by patient's son report, one of the eyes is more affected than the other but he is not receiving injections) Current medications Jardiance 25 mg daily Metformin 1000 mg b.i.d. Ozempic 2 mg subQ weekly (increased around 3 or 4 days ago) Review of Systems: - General: No significant weight loss or gain recently; weight stable around 185 lbs. - Cardiovascular: No palpitations or chest pain - Genitourinary: No frequent urination reported. - Neurological: No tingling or pain in feet. - Skin/Foot: No issues reported Last Eye exam: December 2024 Podiatry: no Nephrology: sees q6 months LDL: 84 07/06/25, on statin Interval history Patient feeling overall No recent hospitalization No checking BG due to memory loss. CGM was tried but patient ripped it off. Currently in Jardiance 25mg, Metformin 1000mg BID and Ozempic 2mg weekly patient reported to have increased appetite. He is compliant with Ozempic, as son is the one that administers the BrandConts Labs Laboratory Tests 10/03/25 10/04/25 10/17/25 08:24 08:17 10:13 Creatinine 0.64 Estimated GFR > 60 Glucose (Clinic) 224 H Hgb A1c (Clinic) 7.3 H Blood glucose in office today 143, fasting per patient's son report 07/13/2025 A1c 8.6, previously 8.5 on January 2025 07/06/2025 Creatinine 0.8 GFR more than 60 Microalbumin less than 5.0 [facility] Medical History Type 2 diabetes mellitus, with long-term current use of insulin Diabetes mellitus, with long-term current use of insulin Hearing loss Encounter for Medicare annual wellness exam Mild recurrent major depression Morbid obesity with BMI of 40.0-44.9, adult Type 2 diabetes mellitus with diabetic polyneuropathy Former smoker Lumbar radiculopathy Proteinuria Retinopathy Hyperlipidemia Obesity due to excess calories Depression with anxiety Pure hypercholesterolemia Type 2 diabetes mellitus with other diabetic kidney complication Surgical History History of surgery History of cataract surgery Family History Father No problems noted. Mother No problems noted. Social History Household Members: None Housing: Apartment Alcohol intake: former Patient Tobacco Use Status: Former Tobacco user Tobacco use type: Cigarette Years Smoked: 20 years e-Cigarette/Vaping Use: Never Used Second Hand Smoke Exposure: No service: No Current occupational status: disabled Cognitive needs: No Hearing needs: Yes Vision needs: Yes Physical Exam Vital Signs: Last Vital Signs Pulse 76 10/17/25 10:04 BP 122/50 L 10/17/25 10:04 Pulse Ox 96 10/17/25 10:04 Oxygen Delivery Method Room Air 10/17/25 10:04 BMI result Body Mass Index 32.0 Assessment & Plan Assessment & Plan (1) Diabetes mellitus, without long-term current use of insulin: Code(s): E11.9 - Type 2 diabetes mellitus without complications Category: Medical Qualifiers: Diabetes mellitus type: type 2 Diabetes mellitus complication status: with hyperglycemia Qualified Code(s): E11.65 - Type 2 diabetes mellitus with hyperglycemia Plan Assessment: Type 2 Diabetes Mellitus with a history of cognitive impairment due to Alzheimer's disease, resulting in challenges with self-management and dietary control. Most recent A1c 7.3% on 10/03/25, improved from 8.6% on . Current A1c at goal per previously 8-8.5% given his comorbidities. Unfortunately there is not data to further help in adjusting/adding medications. Plan: -Continue lifestyle counseling with a focus on nutrition, and weight management. Caregiver to assist with meal planning and monitoring. -Maintain current oral medications: Jardiance and Metformin. -We will increase in Ozempic dose, we will consider optimizing Ozempic its maximum dose 2.4 mg if needed. Monitor for any side effects. -Insulin use is avoided due to cognitive impairment and risk of hypoglycemia. Instead, focus on optimizing GLP-1 regimen. -Set realistic A1c goals considering the patient's age and comorbidities to prevent hypoglycemia. Target A1c to be less strict to avoid hypoglycemic events- a reasonable goal will be 8-8.5%. -Educate the caregiver on how to monitor blood glucose levels at home. -Caregiver will need help with using glucometer -Conduct annual screening for diabetes complications, including retinal exams and renal function tests. Schedule regular follow-ups every 3 months with endocrinology. -Encourage the caregiver to ensure the patient adheres to medication schedules, avoids skipping doses, and maintains a balanced diet with portion control. -Will add Ezetemibe for LDL not at goal < 70. Repeat LDL 3 months -Recommend regular foot checks to prevent complications. Orders: Orders Lipid Panel 8 Weeks E11.65 - Type 2 diabetes mellitus with hyperglycemia Medications: New ezetimibe 10 mg PO DAILY 30 tabs 3RF Refilled blood sugar diagnostic (FreeStyle Lite Strips) As directed three times a day 100 ea 11RF E11.42 - Type 2 diabetes mellitus with diabetic polyneuropathy, E11.65 - Type 2 diabetes mellitus with hyperglycemia, Z79.4 - buttermaker helper (current) use of insulin blood-glucose meter (FreeStyle Lite Meter kit) As directed 3x/day 1 ea 0RF E11.42 - Type 2 diabetes mellitus with diabetic polyneuropathy, Z79.4 - senior care (current) use of insulin lancets (FreeStyle Lancets) Three times a day 100 ea 11RF E11.42 - Type 2 diabetes mellitus with diabetic polyneuropathy, Z79.4 - senior care (current) use of insulin Coding Level of Care Code Est Pt Level 3 (04877) Add On Problem Visit Only Diagnoses Type 2 diabetes mellitus with hyperglycemia, without long-term current use of insulin E11.65 Diabetes mellitus type: type 2 Diabetes mellitus complication status: with hyperglycemia
[2025-10-17 10:04] VITALS: BP 122/50; PULSE 76; O2SAT 96; BMI 32.0
[2025-10-17 10:21] LABS: Glucose, Whole Blood 224 mg/dL (60-115)
== END 2025-10-17 11:01 | disposition home or self-care (01) ==
PROVIDERS: PCP Internal Medicine; Visit Provider Student in an Organized Health Care Education/Training Program
DX: E11.65 Type 2 diabetes mellitus with hyperglycemia (principal)
CPT/HCPCS: 99213; G2211

== ENCOUNTER → 2025-10-17 09:59 | Outpatient (BNVA) | payer MEDICARE, MEDICAID, SELFPAY | PROVIDERS: PCP Internal Medicine; Visit Provider Student in an Organized Health Care Education/Training Program | DX: E11.65 Type 2 diabetes mellitus with hyperglycemia (principal); Z79.4 Long term (current) use of insulin; Z79.84 Long term (current) use of oral hypoglycemic drugs | CPT/HCPCS: 82947; 99212 ==